=== PATIENT | male | born 1950 | race Hispanic/Latino ===

== ENCOUNTER 2018-01-18 16:57 | Inpatient (IN) | payer MEDICARE ==
--- NOTE | 2018-01-18 17:13 | ED PDOC ---
"Arrival/HPI <Jamaal Owen - Last Filed: 01/18/18 21:06> - General Historian: Patient <Jayant Quintero - Last Filed: 01/24/18 08:54> - General Time Seen by Provider: 01/18/18 16:59 - History of Present Illness Narrative History of Present Illness (Text): 01/18/18 17:09 67 y/o no signifcant pmh, nkda, c/o shortness of breath and dizziness x 3-4 days with no fall or trauma. Pt. stated that he has been feeling dizziness and shortness of breath x 3-4 days, admits difficulty sleeping when laying down flat and shortness of breath on exertion, no chest pain or palpitation, no night sweat, no headache or neck pain, no abdmominal or pelvic pain, no other medical or psychological complaints. (Jayant Quintero) Past Medical History - Provider Review Nursing Documentation Reviewed: Yes <Jayant Quintero - Last Filed: 01/24/18 08:54> Family/Social History - Physician Review Nursing Documentation Reviewed: Yes Family/Social History: Unknown Family HX <Jayant Quintero - Last Filed: 01/24/18 08:54> Allergies/Home Meds <Jamaal Owen - Last Filed: 01/18/18 21:06> <Jayant Quintero - Last Filed: 01/24/18 08:54> Allergies/Adverse Reactions: Allergies No Known Allergies Allergy (Verified 01/18/18 17:09) Home Medications: Home Meds Medication Instructions Recorded Confirmed No Known Home Med 01/18/18 01/18/18 Review of Systems - Review of Systems Constitutional: absent: Fatigue, Fevers Eyes: absent: Vision Changes ENT: absent: Hearing Changes Respiratory: SOB. absent: Cough, Sputum Cardiovascular: absent: Chest Pain Gastrointestinal: absent: Abdominal Pain, Nausea, Vomiting Skin: absent: Rash, Pruritis Neurological: Dizziness. absent: Headache, Focal Weakness, Gait Changes Hemo/Lymphatic: absent: Adenopathy, Easy Bleeding Psychiatric: absent: Anxiety, Depression <Jayant Quintero - Last Filed: 01/24/18 08:54> Physical Exam Vital Signs Reviewed: Yes Temperature: Afebrile Blood Pressure: Hypertensive Pulse: Tachycardic Respiratory Rate: Normal Appearance: Positive for: Well-Appearing, Non-Toxic, Comfortable Pain Distress: None Mental Status: Positive for: Alert and Oriented X 3 - Systems Exam Head: Present: Atraumatic, Normocephalic Pupils: Present: PERRL Extroacular Muscles: Present: EOMI Conjunctiva: Present: Normal Ears: Present: NORMAL TM, Normal Canal. No: Erythema Mouth: Present: Moist Mucous Membranes Pharnyx: No: ERYTHEMA, EXUDATE, TONSILS ENLARGED Nose (External): Present: Atraumatic. No: Abrasion, Contusion Nose (Internal): Present: Normal Inspection, No Active Bleeding. No: Rhinorrhea , Septal Hematoma, Epistaxis Neck: Present: Normal Range of Motion. No: Meningeal Signs, MIDLINE TENDERNESS , Paraspinal Tenderness, Lymphadenopathy, Trachea Midline Respiratory/Chest: Present: Decreased Breath Sounds (RLL), Rales (RLL), Rhonchi (RLL). No: Respiratory Distress, Accessory Muscle Use, Wheezes, Retracting, Tachypneic Cardiovascular: Present: Murmurs, Normal S1, S2, Irregular Rhythm, Tachycardic, Other (2+ pedal edema noted) Abdomen: No: Tenderness, Distention, Peritoneal Signs, Rebound, Guarding Back: Present: Normal Inspection Upper Extremity: Present: Normal Inspection, Normal ROM, NORMAL PULSES, Capillary Refill < 2s. No: Cyanosis, Edema, Deformity Lower Extremity: Present: Normal Inspection, NORMAL PULSES, Normal ROM, Capillary Refill < 2 s. No: Edema, Tenderness, Swelling, Deformity Neurological: Present: GCS=15, CN II-XII Intact, Speech Normal, Motor Func Grossly Intact, Gait Normal, Memory Normal Skin: Present: Warm, Dry, Normal Color. No: Rashes Psychiatric: Present: Alert, Oriented x 3, Normal Insight, Normal Concentration <Jayant Quintero Q - Last Filed: 01/24/18 08:54> Vital Signs Temp Pulse Resp BP Pulse Ox 01/18/18 23:01 147 H 47 H 194/128 H 93 L 01/18/18 23:00 147 H 48 H 91 L 01/18/18 22:57 148 H 56 H 01/18/18 22:39 143/103 H 01/18/18 22:20 149 H 26 H 143/100 H 96 01/18/18 21:28 148 H 30 H 144/99 H 95 01/18/18 20:46 150/98 H 01/18/18 19:40 148 H 24 143/100 H 96 01/18/18 17:40 147 H 147/102 H 01/18/18 17:13 168 H 194/112 H 01/18/18 17:12 22 97 01/18/18 16:57 97.5 F L 147 H 20 192/114 H 98 Medical Decision Making <Jamaal Owen - Last Filed: 01/18/18 21:06> - Critical Care Critical Care Minutes: 45 minutes Critical Care Time: Unstable - Lab Interpretations I have reviewed the lab results: Yes Interpretation: Abnormal lab values - RAD Interpretation Wringer Operator: Radiologist - EKG Interpretation Interpreted by ED Physician: Yes Type: 12 lead EKG Comparison: No previous EKG avail. <Jayant Quintero - Last Filed: 01/24/18 08:54> ED Course and Treatment: 01/18/18 17:11 -Labs/thyroid panel -EKG -CXR -IV cardizem 20mg/fluid -equipment monitor phototypesetting -Oxygen 4L placed on by me. -Observe and reassess 01/18/18 17:59 -Pt. received 20mg IV cardizem which the HR still around 140s, another 20mg IV cardizem given, agreed by Dr. Jefferson. -Pt. has no rectal bleeding and no abdominal pain, no stool discoloration, refused guaiac exam prior to anticoagulation. 01/18/18 18:25 -Blood hemolyzed, redraw, pending lab work and would anticoagulant. 01/18/18 19:03 -Bilateral LE doppler added due to the pedal edema. -PE studies added due to unresolved tachycardia. 01/18/18 19:28 -ICU team contacted, consult placed, and would evaluate the patient. -Paged out to Dr. Goncalves for consult 01/18/18 19:58 -I spoke to Dr. Yin, covering for Dr. Goncalves, reviewed the ekg himself, discussed about the case/labs/radiology result, recommend Continuous Cardizem drip 10mg/hr with digoxin IV 0.5mg as needed if tachycardia unresolved, and agreed with anticoagulant standard protocol for heparin, consult ordered. - Discussed with current ER attending DR. Owen and agreed on this treatment which recommend heparin 5000Units bolus due to the patient's weight 144.696kg and standard IV heparin drip. 01/18/18 20:55 -EKG: Atrial flutter @ 147 BPM, no ST elevation or depression, no T wave inversion. -Chest xray show cardiomegally with vascular congestion -labs show no acute findings except wbc 13.6 (likely stress induced, afebrile) -Thyroid panel within normal limit -BNP is 5690, IV lasix 60mg ordered -Troponin is positive 0.24, aspirin 325mg po ordered -UA ordered and pending results -UDS ordered and pending results -Pt. feels well, no shortness of breath on rest. -Tachycardia persist around 140, Digoxin 0.25mg IV ordered with the digoxin level order. -I spoke to the ICU team, would admit the patient to ICU and coming down to admit the patient. -All labs and radiology results discussed with the patient and , agreed to the admission. -As per pharmcist, the patient's IV heparin drip need to be adjusted to ideal body weight which I told them just follow the protocol for a.fibb/flutter -Case was also discussed with Dr. Baldwin, covering for Dr. Miles, agreed on the consults and treatment, will admit to his service. 01/18/18 21:46 -CTA Chest: Moderate-sized right pleural effusion. No pulmonary embolism is identified. Distal pulmonary arteries are not well-seen due to artifact. Infiltrate in the right lower lobe may be due to edema, pneumonia or compressive atelectasis. -Pt. has cough, elevated WBC, no fever or chills, clinically also concerning infected pneumonia, IV rocephin and azithromycin ordered with blood cultures. 01/18/18 21:58 -Pt. has persistent tachycardia @ 140 BPM, another digoxin 0.25mg ordered ( makes it total of digoxin 0.5mg IV), will go up to the ICU for further management. (Jayant Quintero) - Critical Care Narrative Critical Care (Text): 01/18/18 19:52 atrial flutter/NSTEMI/Congestive heart failure, IV cardizem and lasix, ICU and superintendent storage area consult, bedside monitoring. (Jayant Quintero) - Lab Interpretations Lab Results: 01/18/18 17:15 01/18/18 18:40 Lab Results 01/18/18 18:40: Hemoglobin A1c 6.3 01/18/18 18:40: Triglycerides 84, Cholesterol 172, LDL Cholesterol Direct 128, HDL Cholesterol 30 01/18/18 18:40: Digoxin < 0.4 L 01/18/18 18:40: Sodium 143, Potassium 4.3, Chloride 104, Carbon Dioxide 28, Anion Gap 15, BUN 11, Creatinine 0.9, Est GFR ( Amer) > 60, Est GFR (Non- Af Amer) > 60, Random Glucose 118 H, Calcium 8.9, Magnesium 2.0, Total Bilirubin 1.4 H, AST 53, ALT 82 H, Alkaline Phosphatase 159 H, Lactate Dehydrogenase 453, Total Creatine Kinase 105, Troponin I 0.24 H*, NT-Pro-B Natriuret Pep 5690 H, Total Protein 6.6, Albumin 3.8, Globulin 2.8, Albumin/ Globulin Ratio 1.4 01/18/18 17:15: Free T4 1.07, TSH 3rd Generation 3.36 01/18/18 17:15: PT 13.2 H, INR 1.15, APTT 36.4 01/18/18 17:15: WBC 13.6 H, RBC 5.81, Hgb 17.5, Hct 53.0 H, MCV 91.2, MCH 30.1, MCHC 33.0, RDW 14.3, Plt Count 334, MPV 11.1 H, Gran % 68.6 H, Lymph % (Auto) 22.1, [place] % (Auto) 8.5 H, Eos % (Auto) 0.6 L, Baso % (Auto) 0.2, Gran # 9.32 H , Lymph # (Auto) 3.0, [place] # (Auto) 1.2 H, Eos # (Auto) 0.1, Baso # (Auto) 0.03 - RAD Interpretation Radiology Orders: 01/18/18 17:13 CHEST PORTABLE [RAD] Stat 01/18/18 19:03 DUPLEX LOWER EXTRM VEIN BILAT [US] Stat 01/18/18 19:05 ANGIO CHEST PE PROTOCOL [CT] Stat Chest xray: vascular congestion and cardiomegally -------- Bilateral LE Venuous doppler: as per preliminary report, no acute DVT CTA Chest: FINDINGS: Artifacts: Motion artifact. Pulmonary arteries: No pulmonary embolism is identified. Distal pulmonary arteries are not wellseen due to artifact. Aorta: No acute findings. No thoracic aortic aneurysm. Lungs: Infiltrate in the right lower lobe may be due to edema, pneumonia or compressive atelectasis. No mass. Pleural space: Moderate-sized right pleural effusion. No pneumothorax. Heart: Unremarkable. No cardiomegaly. No significant pericardial effusion. No evidence of RV dysfunction. Bones/joints: No acute fracture. No dislocation. Soft tissues: Unremarkable. Lymph nodes: Unremarkable. No enlarged lymph nodes. IMPRESSION: 1. Moderate-sized right pleural effusion. 2. No pulmonary embolism is identified. Distal pulmonary arteries are not well- seen due to artifact. 3. Infiltrate in the right lower lobe may be due to edema, pneumonia or compressive atelectasis. ROWENA TORRE | Preliminary Radiology Report MINER OPERATOR (QA) DISCREPANCY? If there is a discrepancy between the preliminary and final interpretation, please notify [facility] via [email or web address]. If you do not have access to our QA portal, call our QA team at [phone] CONFIDENTIALITY STATEMENT This report is intended only for the use of the referring physician, and only in accordance with law, If you received this in error, call [phone] Page 2 of 2 Thank you for allowing us to participate in the care of your patient. Dictated and Authenticated by: Vicente Valles MD 01/18/2018 9:42 PM Eastern Time ([place] & [place]) (Jayant Quintero) - EKG Interpretation EKG Interpretation (Text): 01/18/18 18:00 -EKG: Atrial flutter @ 147 BPM, no ST elevation or depression, no T wave inversion. (Jayant Quintero) - Medication Orders Current Medication Orders: Amiodarone HCl (Cordarone) 400 mg PO BID [facility] Last Admin: 01/23/18 17:25 Dose: 400 mg MAR Pulse and Blood Pressure Document 01/23/18 17:25 KMS (Rec: 01/23/18 17:26 [place] [id number]) Pulse Pulse Rate (60-90) 113 Blood Pressure Blood Pressure (100/60-150/90) 112/67 Aspirin (Ecotrin) 81 mg PO DAILY [facility] Last Admin: 01/23/18 09:10 Dose: 81 mg Carvedilol (Coreg) 25 mg PO BID [facility] Last Admin: 01/23/18 17:26 Dose: 25 mg MAR Pulse and Blood Pressure Document 01/23/18 17:26 KMS (Rec: 01/23/18 17:26 KMS [place] [id number]) Pulse Pulse Rate (60-90) 113 Blood Pressure Blood Pressure (100/60-150/90) 112/67 Digoxin (Digoxin) 0.125 mg PO 1400 [facility] Last Admin: 01/23/18 13:07 Dose: 0.125 mg MAR Apical Pulse Rate Document 01/23/18 13:07 RAMOM (Rec: 01/23/18 13:07 RAMOM [id number] Apical Pulse Rate Apical Pulse Rate (60-90 beats/min) 115 Enoxaparin Sodium (Lovenox) 140 mg SC Q12 [facility] Last Admin: 01/23/18 22:06 Dose: 140 mg Subcutaneous Administrations Document 01/23/18 22:06 FDE (Rec: 01/23/18 22:06 FDE [id number]) Charges for Administration # of Subcutaneous Administrations 1 Famotidine (Pepcid) 40 mg PO HS [facility] Last Admin: 01/23/18 22:06 Dose: 40 mg Furosemide (Lasix) 40 mg IV DAILY [facility] Levalbuterol HCl (Xopenex) 0.63 mg IH [id number] PRN PRN Reason: Shortness of Breath Lisinopril (Zestril) 5 mg PO DAILY [facility] Last Admin: 01/23/18 09:10 Dose: 5 mg MAR Pulse and Blood Pressure Document 01/23/18 09:10 RAMOM (Rec: 01/23/18 09:10 RAMOM [id number]) Pulse Pulse Rate (60-90) 118 Blood Pressure Blood Pressure (100/60-150/90) 106/79 Polyethylene Glycol (Miralax) 17 gm PO BID [facility] Last Admin: 01/23/18 17:26 Dose: Not Given Non-Admin Reason: Patient Refused Potassium Chloride (K-Dur 20 Meq Er Tab) 20 meq PO BRK [facility] Last Admin: 01/24/18 08:44 Dose: 20 meq Discontinued Medications Aspirin (Aspirin) 325 mg PO STAT STA Stop: 01/18/18 19:29 Last Admin: 01/18/18 20:46 Dose: 325 mg Carvedilol (Coreg) 12.5 mg PO BID [facility] Last Admin: 01/21/18 08:00 Dose: 12.5 mg MAR Pulse and Blood Pressure Document 01/21/18 08:00 RAMOM (Rec: 01/21/18 09:04 RAMOM [id number]) Pulse Pulse Rate (60-90) 133 Blood Pressure Blood Pressure (100/60-150/90) 138/79 Carvedilol (Coreg) 12.5 mg PO TID [facility] Last Admin: 01/21/18 17:47 Dose: 12.5 mg MAR Pulse and Blood Pressure Document 01/21/18 17:47 RAMOM (Rec: 01/21/18 17:47 RAMOM [id number]) Pulse Pulse Rate (60-90) 122 Blood Pressure Blood Pressure (100/60-150/90) 145/83 Digoxin (Lanoxin) 0.25 mg IVP STAT STA Stop: 01/18/18 20:48 Last Admin: 01/18/18 21:19 Dose: 0.25 mg MAR Apical Pulse Rate Document 01/18/18 21:19 SS (Rec: 01/18/18 21:20 SS [id number]) Apical Pulse Rate Apical Pulse Rate (60-90 beats/min) 149 IVP Administration Document 01/18/18 21:19 SS (Rec: 01/18/18 21:20 SS [id number]) Charges for Administration # of IVP Administrations 1 Digoxin (Lanoxin) 0.25 mg IVP STAT STA Stop: 01/18/18 21:59 Last Admin: 01/18/18 22:39 Dose: 0.25 mg MAR Apical Pulse Rate Document 01/18/18 22:39 SS (Rec: 01/18/18 22:39 SS [id number]) Apical Pulse Rate Apical Pulse Rate (60-90 beats/min) 147 IVP Administration Document 01/18/18 22:39 SS (Rec: 01/18/18 22:39 SS [id number]) Charges for Administration # of IVP Administrations 1 Digoxin (Lanoxin) 0.25 mg IVP ONCE ONE Stop: 01/19/18 03:12 Last Admin: 01/19/18 03:20 Dose: 0.25 mg MAR Apical Pulse Rate Document 01/19/18 03:20 ID (Rec: 01/19/18 03:21 ID [id number]) Apical Pulse Rate Apical Pulse Rate (60-90 beats/min) 150 IVP Administration Document 01/19/18 03:20 ID (Rec: 01/19/18 03:21 ID [id number]) Charges for Administration # of IVP Administrations 1 Digoxin (Lanoxin) 0.25 mg IV ONCE ONE Stop: 01/20/18 08:16 Last Admin: 01/20/18 08:32 Dose: 0.25 mg eMAR Start Stop Document 01/20/18 08:32 MDU (Rec: 01/20/18 08:33 MDU [id number]) Intravenous Solution Start Date 01/20/18 Start Time 08:33 MAR Apical Pulse Rate Document 01/20/18 08:32 MDU (Rec: 01/20/18 08:33 MDU [id number]) Apical Pulse Rate Apical Pulse Rate (60-90 beats/min) 142 Diltiazem HCl (Cardizem) 20 mg IVP STAT STA Stop: 01/18/18 17:13 Last Admin: 01/18/18 17:13 Dose: 20 mg IVP Administration Document 01/18/18 17:13 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 (Rec: 01/18/18 17:40 [id number]) Charges for Administration # of IVP Administrations 1 MAR Pulse and Blood Pressure Document 01/18/18 17:13 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 (Rec: 01/18/18 17:40 [id number]) Pulse Pulse Rate (60-90) 168 Blood Pressure Blood Pressure (100/60-150/90) 194/112 Diltiazem HCl (Cardizem) 20 mg IVP STAT STA Stop: 01/18/18 17:31 Last Admin: 01/18/18 17:40 Dose: 20 mg IVP Administration Document 01/18/18 17:40 [facility] (Rec: 01/18/18 17:40 [id number]) Charges for Administration # of IVP Administrations 2 MAR Pulse and Blood Pressure Document 01/18/18 17:40 [facility] (Rec: 01/18/18 17:40 [id number]) Pulse Pulse Rate (60-90) 147 Blood Pressure Blood Pressure (100/60-150/90) 147/102 Diltiazem HCl (Cardizem) 10 mg IVP ONCE STA Stop: 01/19/18 03:32 Last Admin: 01/19/18 04:10 Dose: 10 mg IVP Administration Document 01/19/18 04:10 DAMARI (Rec: 01/19/18 04:56 [facility]ARI [id number] Charges for Administration # of IVP Administrations 1 MAR Pulse and Blood Pressure Document 01/19/18 04:10 DAMARI (Rec: 01/19/18 04:56 DAMARI [id number]) Pulse Pulse Rate (60-90) 149 Blood Pressure Blood Pressure (100/60-150/90) 102/76 Enoxaparin Sodium (Lovenox) 140 mg SC Q12 [facility] Last Admin: 01/23/18 09:11 Dose: 140 mg Subcutaneous Administrations Document 01/23/18 09:11 RAMOM (Rec: 01/23/18 09:11 RAMOM [id number] Injection Site MAR Injection Site Left Abdomen Charges for Administration # of Subcutaneous Administrations 1 Furosemide (Lasix) 60 mg IVP STAT STA Stop: 01/18/18 19:20 Last Admin: 01/18/18 20:46 Dose: 60 mg MAR Blood Pressure Document 01/18/18 20:46 SS (Rec: 01/18/18 20:46 SS [id number]) Blood Pressure Blood Pressure (100/60-150/90) 150/98 IVP Administration Document 01/18/18 20:46 SS (Rec: 01/18/18 20:46 SS [id number]) Charges for Administration # of IVP Administrations 1 Furosemide (Lasix) 40 mg IVP Q12 [facility] Last Admin: 01/19/18 21:12 Dose: 40 mg MAR Blood Pressure Document 01/19/18 21:12 KGD (Rec: 01/19/18 21:14 KGD [id number]) Blood Pressure Blood Pressure (100/60-150/90) 109/72 IVP Administration Document 01/19/18 21:12 KGD (Rec: 01/19/18 21:14 KGD [id number]) Charges for Administration # of IVP Administrations 1 Furosemide (Lasix) 60 mg IVP STAT STA Stop: 01/18/18 23:28 Last Admin: 01/18/18 23:33 Dose: 60 mg MAR Blood Pressure Document 01/18/18 23:33 ID (Rec: 01/18/18 23:33 ID [id number]) Blood Pressure Blood Pressure (100/60-150/90) 216/127 IVP Administration Document 01/18/18 23:33 ID (Rec: 01/18/18 23:33 ID [id number]) Charges for Administration # of IVP Administrations 1 Furosemide (Lasix) 40 mg IV BID [facility]ACK[facility] Last Admin: 01/23/18 17:25 Dose: 40 mg eMAR Start Stop Document 01/23/18 17:25 KMS (Rec: 01/23/18 17:25 KMS [id number]) Intravenous Solution Start Date 01/23/18 Start Time 17:25 End Date 01/23/18 End time 17:25 Total Infusion Time 0 MAR Blood Pressure Document 01/23/18 17:25 KMS (Rec: 01/23/18 17:25 KMS [id number]) Blood Pressure Blood Pressure (100/60-150/90) 112/67 Heparin Sodium (Porcine) (Heparin) 5,000 units IV ONCE ONE PRN Reason: Protocol Stop: 01/18/18 20:22 Last Admin: 01/18/18 20:47 Dose: 5,000 units eMAR Start Stop Document 01/18/18 20:47 SS (Rec: 01/18/18 20:47 SS [id number]) Intravenous Solution Start Date 01/18/18 Start Time 20:47 Heparin Sodium (Porcine) (Heparin) 4,400 units IV ONCE ONE Stop: 01/21/18 08:46 Last Admin: 01/21/18 08:53 Dose: 4,400 units eMAR Start Stop Document 01/21/18 08:53 RAMOM (Rec: 01/21/18 08:53 RAMOM [id number]) Intravenous Solution Start Date 01/21/18 Start Time 08:50 End Date 01/21/18 End time 08:55 Total Infusion Time 5 MAR aPTT Document 01/21/18 08:53 RAMOM (Rec: 01/21/18 08:53 RAMOM [id number]) aPTT aPTT (secs) 36.9 Heparin Sodium (Porcine) (Heparin) 5,500 units IVP STAT STA PRN Reason: Protocol Stop: 01/22/18 07:28 Last Admin: 01/22/18 07:34 Dose: 5,500 units MAR aPTT Document 01/22/18 07:34 MG (Rec: 01/22/18 07:34 MG [id number]) aPTT aPTT (secs) 42.3 IVP Administration Document 01/22/18 07:34 MG (Rec: 01/22/18 07:34 MG [id number]) Charges for Administration # of IVP Administrations 1 Sodium Chloride (Sodium Chloride 0.9%) 1,000 mls @ 100 mls/hr IV .Q10H JACKIE Last Admin: 01/18/18 17:41 Dose: 100 mls/hr eMAR Start Stop Document 01/18/18 17:41 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 (Rec: 01/18/18 17:41 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 [id number] Intravenous Solution Start Date 01/18/18 Start Time 17:41 diltiaZEM IVPB 100mg in NS (Cardizem 100mg In Ns) 100 mls @ 10 mls/hr IV .Q10H PRN; Protocol; 10 MG/HR PRN Reason: TITRATE PER MD ORDER Last Admin: 01/19/18 10:07 Dose: 15 mg/hr, 15 mls/hr eMAR Start Stop Document 01/19/18 10:07 OYELO (Rec: 01/19/18 10:08 OYELO [id number]) Intravenous Solution Start Date 01/19/18 Start Time 10:07 MAR Pulse Rate Document 01/19/18 10:07 OYELO (Rec: 01/19/18 10:08 OYELO [id number]) Pulse Rate Pulse Rate (60-90) 140 Titration Intervention Document 01/19/18 10:07 OYELO (Rec: 01/19/18 10:08 OYELO [id number]) Titration Intake Cumulative Intake (Rx) 200 Waste Amount 0 Container Volume 100 Titration Dosing Titration Dose 15 IV Rate 15 Intake/Decrease Started/Running Cumulative Dose 200 Heparin Sodium/Sodium Chloride (Heparin 86688 Units/250ml 1/2 Normal Saline) 25 ,000 units in 250 mls @ 18.087 mls/hr IV .[id number] PRN; Protocol; 12.5 UNITS/KG/ HR PRN Reason: ADJUST RATE PER PROTOCOL Last Admin: 01/21/18 20:34 Dose: 7 units/kg/hr, 10.129 mls/hr eMAR Start Stop Document 01/21/18 20:34 MG (Rec: 01/21/18 20:34 MG [id number]) Intravenous Solution Start Date 01/21/18 Start Time 20:34 Titration Intervention Document 01/21/18 20:34 MG (Rec: 01/21/18 20:34 MG [id number]) Titration Intake Cumulative Intake (Rx) 1,000 Waste Amount 0 Container Volume 250 Titration Dosing Titration Dose 7 IV Rate 10.129 Intake/Decrease Started/Running Cumulative Dose 232018 Ceftriaxone Sodium (Rocephin 1 Gram Ivpb) 1 gm in 100 mls @ 200 mls/hr IVPB STAT STA PRN Reason: Protocol Stop: 01/18/18 22:15 Last Admin: 01/18/18 22:22 Dose: 200 mls/hr eMAR Start Stop Document 01/18/18 22:22 SS (Rec: 01/18/18 22:22 SS [id number]) Intravenous Solution Start Date 01/18/18 Start Time 22:22 End Date 01/18/18 End time 22:52 Total Infusion Time 30 Azithromycin (Zithromax 500mg In Ns) 500 mg in 250 mls @ 167 mls/hr IVPB STAT STA PRN Reason: Protocol Stop: 01/18/18 23:15 Azithromycin (Zithromax 500mg In Ns) 500 mg in 250 mls @ 167 mls/hr IVPB DAILY JACKIE PRN Reason: Protocol Last Admin: 01/22/18 09:16 Dose: 167 mls/hr eMAR Start Stop Document 01/22/18 09:16 RAMOM (Rec: 01/22/18 09:16 RAMOM [id number]) Intravenous Solution Start Date 01/22/18 Start Time 09:20 End Date 01/22/18 End time 10:50 Total Infusion Time 90 Amiodarone HCl/Dextrose (Nexterone 360 Mg In D5w 200 Ml (Premix)) 360 mg in 200 mls @ 16.667 mls/hr IV .Q12H JACKIE; 0.5 MG/MIN PRN Reason: Protocol Last Admin: 01/21/18 17:48 Dose: 16.667 mls/hr eMAR Start Stop Document 01/21/18 17:48 RAMOM (Rec: 01/21/18 17:48 RAMOM [id number]) Intravenous Solution Start Date 01/21/18 Start Time 19:00 End Date 01/22/18 End time 07:00 Total Infusion Time 720 Amiodarone HCl/Dextrose (Nexterone 360 Mg In D5w 200 Ml (Premix)) 360 mg in 200 mls @ 33.333 mls/hr IV .Q6H JACKIE; 1 MG/MIN PRN Reason: Protocol Last Admin: 01/19/18 11:27 Dose: 33.333 mls/hr eMAR Start Stop Document 01/19/18 11:27 OYELO (Rec: 01/19/18 11:28 OYELO [id number]) Intravenous Solution Start Date 01/19/18 Start Time 11:28 End Date 01/19/18 End time 17:28 Total Infusion Time 360 Amiodarone HCl/Dextrose (Nexterone 150 Mg In Dextrose 100 Ml (Premix)) 150 mg in 100 mls @ 600 mls/hr IVPB ONCE ONE PRN Reason: Protocol Stop: 01/19/18 11:19 Last Admin: 01/19/18 11:26 Dose: 600 mls/hr eMAR Start Stop Document 01/19/18 11:26 OYELO (Rec: 01/19/18 11:26 OYELO [id number]) Intravenous Solution Start Date 01/19/18 Start Time 11:26 End Date 01/19/18 End time 11:36 Total Infusion Time 10 diltiaZEM IVPB 100mg in NS (Cardizem 100mg In Ns) 100 mls @ 5 mls/hr IV .Q20H PRN; Protocol; 5 MG/HR PRN Reason: TITRATE PER MD ORDER Last Admin: 01/19/18 18:45 Dose: 5 mg/hr, 5 mls/hr eMAR Start Stop Document 01/19/18 18:45 OYELO (Rec: 01/19/18 18:45 OYELO [id number]) Intravenous Solution Start Date 01/19/18 Start Time 18:45 MAR Pulse Rate Document 01/19/18 18:45 OYELO (Rec: 01/19/18 18:45 OYELO [id number]) Pulse Rate Pulse Rate (60-90) 117 Titration Intervention Document 01/19/18 18:45 OYELO (Rec: 01/19/18 18:45 OYELO [id number]) Titration Intake Waste Amount 0 Container Volume 100 Titration Dosing Titration Dose 5 IV Rate 5 Intake/Decrease Started Metoprolol Tartrate (Lopressor) 5 mg IVP STAT PRN PRN Reason: Heart Rate > 100 Last Admin: 01/19/18 06:44 Dose: 5 mg IVP Administration Document 01/19/18 06:44 ID (Rec: 01/19/18 06:44 ID [id number]) Charges for Administration # of IVP Administrations 1 MAR Pulse and Blood Pressure Document 01/19/18 06:44 ID (Rec: 01/19/18 06:44 ID [id number]) Pulse Pulse Rate (60-90) 115 Blood Pressure Blood Pressure (100/60-150/90) 127/78 Metoprolol Tartrate (Lopressor) 5 mg IVP Q15M PRN PRN Reason: Heart Rate > 100 Last Admin: 01/19/18 08:34 Dose: 5 mg IVP Administration Document 01/19/18 08:34 OYELO (Rec: 01/19/18 08:34 OYELO [id number]) Charges for Administration # of IVP Administrations 1 MAR Pulse and Blood Pressure Document 01/19/18 08:34 OYELO (Rec: 01/19/18 08:34 OYELO [id number]) Pulse Pulse Rate (60-90) 140 Blood Pressure Blood Pressure (100/60-150/90) 101/63 Metoprolol Tartrate (Lopressor) 5 mg IVP ONCE ONE Stop: 01/19/18 15:52 Last Admin: 01/19/18 16:07 Dose: 5 mg IVP Administration Document 01/19/18 16:07 OYELO (Rec: 01/19/18 16:08 OYELO [id number]) Charges for Administration # of IVP Administrations 1 MAR Pulse and Blood Pressure Document 01/19/18 16:07 OYELO (Rec: 01/19/18 16:08 OYELO [id number]) Pulse Pulse Rate (60-90) 132 Blood Pressure Blood Pressure (100/60-150/90) 109/58 Pantoprazole Sodium (Protonix Inj) 40 mg IVP DAILY JACKIE Last Admin: 01/19/18 09:08 Dose: 40 mg IVP Administration Document 01/19/18 09:08 OYELO (Rec: 01/19/18 09:08 OYELO [id number]) Charges for Administration # of IVP Administrations 1 - PA / MOTION PICTURE OPERATOR / Resident Statement SATYA has reviewed & agrees with the documentation as recorded. SATYA has examined the patient and agrees with the treatment plan. <Jamaal Owen - Last Filed: 01/18/18 21:06> - PA / MOTION PICTURE OPERATOR / Resident Statement SATYA has reviewed & agrees with the documentation as recorded. SATYA has examined the patient and agrees with the treatment plan. <Jayant Quintero - Last Filed: 01/24/18 08:54> Disposition/Present on Arrival <Jamaal Owen - Last Filed: 01/18/18 21:06> - Present on Arrival Any Indicators Present on Arrival: No History of DVT/PE: No History of Uncontrolled Diabetes: No Urinary Catheter: No History of Decub. Ulcer: No - Disposition Have Diagnosis and Disposition been Completed?: Yes Disposition Time: 20:57 Patient Plan: Admission, ICU <Jayant Quintero - Last Filed: 01/24/18 08:54> - Disposition Diagnosis: Heart failure, Atrial flutter, NSTEMI (non-ST elevated myocardial infarction), Abnormal CT of the chest, Pleural effusion Disposition: HOSPITALIZED Patient Problems: Current Active Problems Problem Status Onset Abnormal CT of the chest Acute Atrial flutter Acute Heart failure Acute NSTEMI (non-ST elevated myocardial infarction) Acute Pleural effusion Acute Condition: GUARDED"
[2018-01-18 17:20] VITALS: BMI 44.9
[2018-01-18] MEDS ORDERED: diltiaZEM IVPB 100mg in NS 100 ML IV PRN (17:23)
[2018-01-18] MEDS ORDERED: Sodium Chloride 0.9% 1,000 ML IV SCH (17:30)
[2018-01-18 17:51] LABS: BASO # 0.03 K/mm3 (0.0-2.0); BASO % 0.2 % (0.0-3.0); EOS # 0.1 (0.0-0.7); EOS % 0.6 % (1.5-5.0); GRAN # 9.32 (1.4-6.5); GRAN % 68.6 % (50.0-68.0); HEMOGLOBIN 17.5 g/dL (14.0-18.0); LYMPH % 22.1 % (22.0-35.0); MEAN CELL VOLUME 91.2 fl (80.0-105.0); MEAN CORPUSCULAR HEMOGLOBIN 30.1 pg (25.0-35.0); MEAN PLATELET VOLUME 11.1 fl (7.0-11.0); MONO # 1.2 (0.1-0.6); MONO % 8.5 % (1.0-6.0); RBC 5.81 10^6/uL (3.5-6.1); RED CELL DISTRIBUTION WIDTH 14.3 % (11.5-14.5); WHITE BLOOD COUNT 13.6 10^3/ul (4.5-11.0)
[2018-01-18 18:02] LABS: INR 1.15; PARTIAL THROMBOPLASTIN TIME 36.4 Seconds (25.1-36.5); PROTHROMBIN TIME 13.2 SECONDS (9.4-12.5)
[2018-01-18 18:19] LABS: FREE T4 1.07 ng/dL (0.78-2.19)
[2018-01-18 19:00] LABS: ALB/GLOB RATIO 1.4 (1.1-1.8); ALBUMIN 3.8 g/dL (3.0-4.8); ALT/SGPT 82 U/L (7-56); AST/SGOT 53 U/L (17-59); BLOOD UREA NITROGEN 11 mg/dL (7-21); CALCIUM 8.9 mg/dL (8.4-10.5); GFR NON-AFRICAN AMERICAN > 60
[2018-01-18 19:16] LABS: B-TYPE NATRIURETIC PEPTIDE 5690 pg/mL (0-450); TROPONIN I 0.24 ng/mL
[2018-01-18] MEDS ORDERED: Digoxin 500 mcg/2ml (0.5 mg/2ml) Inj IVP STA ×2 (20:47→21:58)
[2018-01-18] MEDS: Heparin25000 units/250ml 1/2NS 25,000 UNITS/250 ML BAG IV PRN (21:33)
--- NOTE | 2018-01-18 21:34 | CP.PCM.CON ---
<Deepika Goins - Last Filed: 01/19/18 01:22> History of Present Illness - History of Present Illness History of Present Illness: Deepika Goins, PGY-1 Consult Note for ICU This is a 67 year old male with no PMH who has not been to a doctor in the several years presents to the hospital for one week history of shortness of breath. SOB is intermittent, worse in the morning and while laying flat, and improved with sitting up. Patient admits to needing two pillows when sleeping and sometimes sleeps sitting up. Patient went to his PMD today, Dr. Miles, who recommended patient come to the ED for abnormal EKG with irregular rhythm. At this time, patient admits to SOB and B/L leg swelling that began earlier in the week. He denies CP, abdominal pain, headaches, fevers, chills, nausea, vomiting , urinary complaints, back pain, recent sickness, recent travel and sick contacts at home. 12 point ROS noted here, otherwise unremarkable. In the ED, patient's EKG noted atrial flutter at 147bpm with no ST changes. CXR showed cardiomegaly and vascular congestion. Duplex US negative for B/L DVT. Thyroid panel WNL. Troponin elevated at 0.24, BNP elevated at 5690. [facility] contacted, Dr. Fonseca recommended cardizem and heparin. Patient also given lasix 60mg IVP and digoxin 0.25mg. CTA showed morderate sized right pleural effusion. No PE. infiltrate in right lower lobe may be due to edema, pneumonia or compressive atelectasis. Patient will be monitored in the ICU. PMD: Dr. Miles PMH: denies SH: quit smoking 30 years ago. Denies drinking and drug use. 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 Sx: denies surgeries FH: father from [place] at 64, mother has alzheimer's All: NKDA Hospitalizations: denies Meds: denies Past Patient History - Past Social History Smoking Status: Never Smoked - PSYCHIATRIC Hx Substance Use: No - SURGICAL HISTORY Hx Surgeries: No Meds Allergies/Adverse Reactions: Allergies Allergy/AdvReac Type Severity Reaction Status Date / Time No Known Allergies Allergy Verified 01/18/18 17:09 - Medications Medications: Current Medications Aspirin (Ecotrin) 81 mg PO DAILY JACKIE Furosemide (Lasix) 40 mg IVP Q12 JACKIE diltiaZEM IVPB 100mg in NS (Cardizem 100mg In Ns) 100 mls @ 10 mls/hr IV .Q10H PRN; Protocol; 10 MG/HR PRN Reason: TITRATE PER MD ORDER Heparin Sodium/Sodium Chloride (Heparin 16146 Units/250ml 1/2 Normal Saline) 25 ,000 units in 250 mls @ 18.087 mls/hr IV .[id number] PRN; Protocol; 12.5 UNITS/KG/ HR PRN Reason: ADJUST RATE PER PROTOCOL Pantoprazole Sodium (Protonix Inj) 40 mg IVP DAILY [facility] Physical Exam - Constitutional Appears: No Acute Distress - Head Exam Head Exam: ATRAUMATIC, NORMAL INSPECTION - Eye Exam Eye Exam: EOMI Pupil Exam: PERRL - ENT Exam ENT Exam: Mucous Membranes Moist - Respiratory Exam Respiratory Exam: absent: Respiratory Distress Additional comments: poor inspiratory effort noted, some wheezing appreciated B/L - Cardiovascular Exam Cardiovascular Exam: Tachycardia, Irregular Rhythm, +S1, +S2 - GI/Abdominal Exam GI & Abdominal Exam: Normal Bowel Sounds. absent: Firm, Guarding - Extremities Exam Extremities exam: Negative for: calf tenderness Additional comments: B/L leg swelling +2 noted - Back Exam Back exam: NORMAL INSPECTION - Neurological Exam Neurological exam: Alert, Oriented x3 - Skin Skin Exam: Normal Color, Warm Results - Vital Signs Recent Vital Signs: Last Vital Signs Temp 97.5 F L 01/18/18 16:57 Pulse 147 H 01/18/18 17:40 Resp 22 01/18/18 17:12 BP 150/98 H 01/18/18 20:46 Pulse Ox 97 01/18/18 17:12 - Labs Result Diagrams: 01/18/18 17:15 01/18/18 18:40 Assessment & Plan - Assessment and Plan (Free Text) Assessment: This is a 67 year old male with no PMH presenting to the hospital for one week history of shortness of breath likely 2/2 atrial flutter from undiagnosed CHF exacerbation. undiagnosed CHF vs atrial flutter. Elevated troponins concerning for NSTEMI vs type II [place]. Will be monitored in the ICU. Plan Neuro: -maintain normothermia -AAO x3, moving extremities spontaneously past midline Cardio: -maintain MAP>65 -will monitor vitals including HR and BP, currently tachy at 149 -EKG on admission showed atrial flutter at 147bpm with no ST changes -given heparin bolus in ED, started on drip -concern for NSTEMI with initial troponin of 0.24. -repeat troponins pending q6 x2 -EKG in AM -lipid panel, A1c pending -ASA daily -BNP of 5690 -Echo pending -given lasix 60mg IVP in ED, started on lasix 40mg IVP q12 -given digoxin 0.25mg -cardizem bolus given, started on cardizem drip -strict I/Os, daily weights, fluid restriction -cardiology on consult, Dr. Yin Lungs: -SaO2 >90% -supplementary O2 PRN -CTA showed morderate sized right pleural effusion. No PE. infiltrate in right lower lobe may be due to edema, pneumonia or compressive atelectasis. -CXR shows cardiomegaly and vascular congestion (read by me) Renal: -maintain euvolemia -avoid nephrotoxic agents, hypochloremia -replace electrolytes as needed -BUN/Cr is 11/0.9 WNL Heme: -DVT ppx with heparin Endo: -maintain euglycemia ID: -WBC is 13.6 today, afebrile -procalc pending -blood culture pending -rocephin, azithromycin given in ED -GI: -NPO diet in case of morning procedure -GI prophylaxis with protonix PPX with protonix and heparin gtt Patient seen and case discussed with attending, Dr. Lukas Goins, PGY-1 <Lukas Metz N - Last Filed: 01/21/18 02:51> Meds - Medications Medications: Current Medications Aspirin (Ecotrin) 81 mg PO DAILY [facility] Last Admin: 01/20/18 09:00 Dose: 81 mg Carvedilol (Coreg) 12.5 mg PO BID [facility] Last Admin: 01/20/18 19:33 Dose: 12.5 mg Digoxin (Digoxin) 0.125 mg PO 1400 [facility] Famotidine (Pepcid) 40 mg PO HS [facility] Last Admin: 01/20/18 22:12 Dose: 40 mg Furosemide (Lasix) 40 mg IV BID [facility] Last Admin: 01/20/18 19:00 Dose: 40 mg Heparin Sodium/Sodium Chloride (Heparin 50611 Units/250ml 1/2 Normal Saline) 25 ,000 units in 250 mls @ 18.087 mls/hr IV .[id number] PRN; Protocol; 12.5 UNITS/KG/ HR PRN Reason: ADJUST RATE PER PROTOCOL Last Admin: 01/20/18 19:35 Dose: 7 units/kg/hr, 10.129 mls/hr Azithromycin (Zithromax 500mg In Ns) 500 mg in 250 mls @ 167 mls/hr IVPB DAILY JACKIE PRN Reason: Protocol Last Admin: 01/20/18 09:01 Dose: 167 mls/hr Amiodarone HCl/Dextrose (Nexterone 360 Mg In D5w 200 Ml (Premix)) 360 mg in 200 mls @ 16.667 mls/hr IV .Q12H JACKIE; 0.5 MG/MIN PRN Reason: Protocol Last Admin: 01/20/18 17:00 Dose: 16.667 mls/hr Levalbuterol HCl (Xopenex) 0.63 mg IH [id number] PRN PRN Reason: Shortness of Breath Results - Vital Signs Recent Vital Signs: Last Vital Signs Temp 98 F 01/21/18 00:00 Pulse 130 H 01/21/18 02:30 Resp 24 01/21/18 02:30 BP 128/83 01/21/18 02:31 Pulse Ox 92 L 01/21/18 02:20 - Labs Result Diagrams: 01/20/18 07:00 01/20/18 07:00 Labs: Laboratory Results - last 24 hr 01/20/18 01/20/18 01/20/18 07:00 07:00 07:00 WBC 10.8 RBC 5.47 Hgb 16.2 Hct 50.4 MCV 92.1 MCH 29.6 MCHC 32.1 RDW 14.4 Plt Count 239 MPV 10.3 Gran % 71.9 H Lymph % (Auto) 17.7 L [place] % (Auto) 9.1 H Eos % (Auto) 1.1 L Baso % (Auto) 0.2 Gran # 7.77 H Lymph # (Auto) 1.9 [place] # (Auto) 1.0 H Eos # (Auto) 0.1 Baso # (Auto) 0.02 APTT 113.8 H* Sodium 139 Potassium 3.9 Chloride 101 Carbon Dioxide 33 Anion Gap 9 L BUN 16 Creatinine 1.0 Est GFR ( Amer) > 60 Est GFR (Non-Af Amer) > 60 Random Glucose 118 H Calcium 8.6 Phosphorus 3.6 Magnesium 1.9 Total Bilirubin 0.8 AST 35 ALT 58 H Alkaline Phosphatase 134 H D Total Protein 6.4 Albumin 3.6 Globulin 2.8 Albumin/Globulin Ratio 1.3 01/20/18 01/20/18 11:50 19:45 WBC RBC Hgb Hct MCV MCH MCHC RDW Plt Count MPV Gran % Lymph % (Auto) [place] % (Auto) Eos % (Auto) Baso % (Auto) Gran # Lymph # (Auto) [place] # (Auto) Eos # (Auto) Baso # (Auto) APTT 85.3 H 59.3 H Sodium Potassium Chloride Carbon Dioxide Anion Gap BUN Creatinine Est GFR ( Amer) Est GFR (Non-Af Amer) Random Glucose Calcium Phosphorus Magnesium Total Bilirubin AST ALT Alkaline Phosphatase Total Protein Albumin Globulin Albumin/Globulin Ratio
[2018-01-18] MEDS: diltiaZEM IVPB 100mg in NS 100 ML IV PRN (21:41)
[2018-01-18] MEDS ORDERED: Azithromycin 500MG/NS 250ml 500 MG/250 ML BAG IVPB STA (21:46)
[2018-01-18] MEDS ORDERED: cefTRIAXone 1 gm 1 GM/100 ML BAG IVPB STA (21:46)
[2018-01-18 22:10] LABS: HDL CHOLESTEROL 30 mg/dL (29-60)
[2018-01-18 22:20] LABS: LDL CHOLESTEROL 128 mg/dL (0-129)
[2018-01-18 22:34] LABS: URINE BILIRUBIN NEGATIVE (NEGATIVE); URINE BLOOD NEGATIVE (NEGATIVE); URINE GLUCOSE (UA) NEGATIVE (NEGATIVE); URINE LEUKOCYTE ESTERASE NEGATIVE Leu/uL (NEGATIVE); URINE PROTEIN NEGATIVE mg/dL (<30 mg/dL); URINE UROBILINOGEN 0.2 E.U./dL (<1 E.U./dL)
[2018-01-18 22:35] LABS: URINE APPEARANCE CLEAR (CLEAR); URINE COLOR COLORLESS (YELLOW)
[2018-01-18 23:00] LABS: BARBITURATES, UR NEGATIVE (NEGATIVE); BENZODIAZEPINES, UR NEGATIVE (NEGATIVE); OPIATES, UR NEGATIVE (NEGATIVE); PHENCYCLIDINE, UR NEGATIVE (NEGATIVE)
[2018-01-19] MEDS ORDERED: Levalbuterol 0.63 MG/3 ML Inhal Soln UD IH PRN (01:04)
[2018-01-19] MEDS ORDERED: Digoxin 500 mcg/2ml (0.5 mg/2ml) Inj IVP ONE (03:11)
[2018-01-19] MEDS: diltiaZEM IVPB 100mg in NS 100 ML IV PRN ×2 (04:56→10:07)
[2018-01-19] MEDS: Metoprolol 1 mg/ml Inj IVP PRN ×2 (06:01→06:44)
[2018-01-19] MEDS ORDERED: Metoprolol 1 mg/ml Inj IVP PRN (06:40)
[2018-01-19 07:13] LABS: BASO # 0.02 K/mm3 (0.0-2.0); BASO % 0.2 % (0.0-3.0); EOS % 0.1 % (1.5-5.0); GRAN # 10.62 (1.4-6.5); GRAN % 80.3 % (50.0-68.0); HEMOGLOBIN 16.9 g/dL (14.0-18.0); LYMPH # 1.6 (1.2-3.4); LYMPH % 12.2 % (22.0-35.0); MEAN CELL VOLUME 91.3 fl (80.0-105.0); MEAN CORPUSCULAR HGB CONC 32.9 g/dl (31.0-37.0); MEAN PLATELET VOLUME 10.6 fl (7.0-11.0); MONO % 7.2 % (1.0-6.0); RBC 5.63 10^6/uL (3.5-6.1); RED CELL DISTRIBUTION WIDTH 14.3 % (11.5-14.5); WHITE BLOOD COUNT 13.2 10^3/ul (4.5-11.0)
[2018-01-19 07:21] LABS: ALB/GLOB RATIO 1.4 (1.1-1.8); ALBUMIN 4.2 g/dL (3.0-4.8); ALT/SGPT 79 U/L (7-56); AST/SGOT 45 U/L (17-59); BLOOD UREA NITROGEN 12 mg/dL (7-21); CALCIUM 8.8 mg/dL (8.4-10.5); GFR NON-AFRICAN AMERICAN > 60
[2018-01-19 07:43] LABS: TROPONIN I 0.15 ng/mL
--- NOTE | 2018-01-19 08:30 | RAD ---
Date of service: 01/18/2018 HISTORY: medical clearance COMPARISON: No prior. FINDINGS: LUNGS: No active pulmonary disease. PLEURA: No significant pleural effusion identified, no pneumothorax apparent. CARDIOVASCULAR: Mild vascular congestion. Mild cardiomegaly OSSEOUS STRUCTURES: No significant abnormalities. VISUALIZED UPPER ABDOMEN: Normal. OTHER FINDINGS: None. IMPRESSION: No active disease.
[2018-01-19] MEDS: Azithromycin 500MG/NS 250ml 500 MG/250 ML BAG IVPB SCH (09:03)
--- NOTE | 2018-01-19 09:06 | CT ---
Date of service: 01/18/2018 PROCEDURE: CT Chest with contrast (Pulmonary Angiogram) HISTORY: r/o PE COMPARISON: None available. TECHNIQUE: Axial computed tomography images were obtained of the chest in the pulmonary arterial phase of enhancement. Coronal and sagittal reformatted images were created and reviewed. Intravenous contrast dose: 150 cc of Omni 350 Radiation dose: Total exam DLP = 690 mGy-cm. This CT exam was performed using one or more of the following dose reduction techniques: Automated exposure control, adjustment of the mA and/or kV according to patient size, and/or use of iterative reconstruction technique. FINDINGS: PULMONARY ARTERIES: Unremarkable. No pulmonary embolism. AORTA: No acute findings. No thoracic aortic aneurysm. LUNGS: There is an infiltrate at the right lung base adjacent to a pleural effusion. This could represent compressive atelectasis PLEURAL SPACES: Moderate size right pleural effusion HEART: Unremarkable. No cardiomegaly. No significant pericardial effusion. LYMPH NODES: No lymphadenopathy. BONES, CHEST WALL: Unremarkable. No fracture or destructive lesion multilevel disc degeneration OTHER FINDINGS: The report concurs with the preliminary [facility] report IMPRESSION: No evidence of pulmonary embolus. Moderate size right pleural effusion with compressive atelectasis at the right lung base
[2018-01-19] MEDS: Heparin25000 units/250ml 1/2NS 25,000 UNITS/250 ML BAG IV PRN (10:05)
--- NOTE | 2018-01-19 10:28 | CARD ---
APPROVED REPORT Date of service: 01/19/2018 EKG Measurement Heart [id number] <Conclusion> Atrial flutter with variable AV block with premature ventricular or aberrantly conducted complexes Inferior infarct, age undetermined ST & T wave abnormality, consider anterolateral ischemia Prolonged QT Abnormal ECG
--- NOTE | 2018-01-19 10:36 | CARD ---
APPROVED REPORT Date of service: 01/18/2018 EKG Measurement Heart [id number] <Conclusion> Atrial flutter with 2:1 AV conduction Left axis deviation Pulmonary disease pattern Nonspecific T wave abnormality Abnormal ECG
--- NOTE | 2018-01-19 10:36 | CARD ---
APPROVED REPORT Date of service: 01/18/2018 EKG Measurement Heart [id number] <Conclusion> Atrial flutter with variable AV block Left axis deviation Abnormal ECG
--- NOTE | 2018-01-19 10:37 | CARD ---
APPROVED REPORT Date of service: 01/18/2018 EKG Measurement Heart [id number] <Conclusion> A flutter with 2:1 conduction Right bundle branch block T wave abnormality, consider inferior ischemia Abnormal ECG
[2018-01-19] MEDS ORDERED: Amiodarone 150 mg/D5W 100 ml 150 MG/100 ML BAG IVPB ONE (11:10)
[2018-01-19] MEDS ORDERED: Amiodarone 360 mg/D5W 200 ml 360 MG/200 ML BAG IV SCH (11:15)
--- NOTE | 2018-01-19 14:45 | CP.CCUPN ---
<Dale Lockwood - Last Filed: 01/19/18 14:11> CCU Subjective - Physician Review Subjective (Free Text): 01/19/18 14:11 Dale Lockwood DO PGY1 - Internal Medicine Record Maker - ICU Progress Note Patient seen and examined at bedside; sitting in chair; complaining of orthopnea and SOB. Denies chest pain, palpitations, abd pain, N/V/D/C, urinary discomfort. Remainder of 12 system ROS is negative. CCU Objective - Vital Signs / Intake & Output Intake and Output (Last 8hrs): Intake & Output 01/18/18 01/19/18 01/19/18 22:59 06:59 14:59 Intake Total 100 350 Output Total 1550 3000 Balance -1550 -2900 350 Weight 142.882 kg Intake: IV 100 350 Right Hand 0 Output: Urine 1550 3000 Urine, Voided 1550 3000 Stool 0 - Physical Exam Head: Positive for: Atraumatic, Normocephalic Pupils: Positive for: PERRL Extroacular Muscles: Positive for: EOMI Conjunctiva: Positive for: Normal Ears: Negative for: Erythema Mouth: Positive for: Moist Mucous Membranes Pharnyx: Negative for: ERYTHEMA, EXUDATE, TONSILS ENLARGED Nose (External): Positive for: Atraumatic. Negative for: Abrasion, Contusion Nose (Internal): Positive for: Normal Inspection, No Active Bleeding. Negative for: Rhinorrhea, Septal Hematoma, Epistaxis Neck: Positive for: Normal Range of Motion. Negative for: Meningeal Signs, MIDLINE TENDERNESS, Paraspinal Tenderness, Lymphadenopathy, Trachea Midline Respiratory/Chest: Positive for: Other (R air marin w/ diffuse wheezing and ronchi; L air marin clear to auscultation ) Cardiovascular: Positive for: Murmurs, Normal S1, S2, Tachycardic, Other ( Regular Rhythm) Abdomen: Negative for: Tenderness, Distention, Peritoneal Signs, Rebound, Guarding Back: Positive for: Normal Inspection Upper Extremity: Positive for: Normal Inspection, Normal ROM, NORMAL PULSES, Capillary Refill < 2s. Negative for: Cyanosis, Edema, Deformity Lower Extremity: Positive for: Normal Inspection, NORMAL PULSES, Normal ROM, Capillary Refill < 2 s, Other (3+ pitting edema BL ). Negative for: Edema, Tenderness, Swelling, Deformity Neurological: Positive for: GCS=15, CN II-XII Intact, Speech Normal, Motor Func Grossly Intact, Gait Normal, Memory Normal Skin: Positive for: Warm, Dry, Normal Color. Negative for: Rashes Psychiatric: Positive for: Alert, Oriented x 3, Normal Insight, Normal Concentration - Medications Active Medications: Active Medications Generic Name Dose Route Start Last Admin Trade Name Freq PRN Reason Stop Dose Admin Aspirin 81 mg 01/19/18 10:00 01/19/18 09:05 Ecotrin PO 81 mg DAILY JACKIE Administration Furosemide 40 mg 01/18/18 22:00 01/19/18 09:09 Lasix IVP 40 mg Q12 JACKIE Administration Heparin Sodium/Sodium Chloride 25,000 units in 250 mls @ 18.087 mls/hr 20:21 01/19/18 10:05 Heparin 05042 Units/250ml 1/2 Normal Saline IV 12.5 units/kg/hr .[id number] PRN 18.087 mls/hr ADJUST RATE PER PROTOCOL Administration Protocol 12.5 UNITS/KG/HR Azithromycin 500 mg in 250 mls @ 167 mls/hr 01/19/18 10:00 01/19/18 09:03 Zithromax 500mg In Ns IVPB 167 mls/hr DAILY JACKIE Administration Protocol Amiodarone HCl/Dextrose 360 mg in 200 mls @ 16.667 mls/hr 01/19/18 17:00 Nexterone 360 Mg In D5w 200 Ml (Premix) IV .Q12H JACKIE Protocol 0.5 MG/MIN Amiodarone HCl/Dextrose 360 mg in 200 mls @ 33.333 mls/hr 01/19/18 11:15 03/28 11:27 Nexterone 360 Mg In D5w 200 Ml (Premix) IV 33.333 mls/hr .Q6H JACKIE Administration Protocol 1 MG/MIN Levalbuterol HCl 0.63 mg 01/19/18 01:04 Xopenex IH [id number] PRN Shortness of Breath Pantoprazole Sodium 40 mg 01/19/18 10:00 01/19/18 09:08 Protonix Inj IVP 40 mg DAILY JACKIE Administration - Patient Studies Lab Studies: Lab Studies 01/19/18 01/19/18 01/19/18 Range/Units 09:20 06:10 06:10 WBC (4.5-11.0) 10^3/ul RBC (3.5-6.1) 10^6/uL Hgb (14.0-18.0) g/dL Hct (42.0-52.0) % MCV (80.0-105.0) fl MCH (25.0-35.0) pg MCHC (31.0-37.0) g/dl RDW (11.5-14.5) % Plt Count (120.0-450.0) 10^3/uL MPV (7.0-11.0) fl Gran % (50.0-68.0) % Lymph % (Auto) (22.0-35.0) % Curry % (Auto) (1.0-6.0) % Eos % (Auto) (1.5-5.0) % Baso % (Auto) (0.0-3.0) % Gran # (1.4-6.5) Lymph # (Auto) (1.2-3.4) Curry # (Auto) (0.1-0.6) Eos # (Auto) (0.0-0.7) Baso # (Auto) (0.0-2.0) K/mm3 APTT 80.3 H (25.1-36.5) Seconds Sodium (132-148) mmol/L Potassium (3.6-5.0) mmol/L Chloride (98-107) mmol/L Carbon Dioxide (21-33) mmol/L Anion Gap (10-20) BUN (7-21) mg/dL Creatinine (0.8-1.5) mg/dl Est GFR ( Amer) Est GFR (Non-Af Amer) Random Glucose (70-110) mg/dL Calcium (8.4-10.5) mg/dL Phosphorus (2.5-4.5) mg/dL Magnesium (1.7-2.2) mg/dL Total Bilirubin (0.2-1.3) mg/dL AST (17-59) U/L ALT (7-56) U/L Alkaline Phosphatase (38-126) U/L Troponin I ng/mL Total Protein (5.8-8.3) g/dL Albumin (3.0-4.8) g/dL Globulin gm/dL Albumin/Globulin Ratio (1.1-1.8) Procalcitonin (0.19-0.49) NG/ML Urine Color (YELLOW) Urine Appearance (CLEAR) Urine pH (4.7-8.0) Ur Specific [place] (1.005-1.035) Urine Protein (<30 mg/dL) mg/dL Urine Glucose (UA) (NEGATIVE) mg/dL Urine Ketones (NEGATIVE) mg/dL Urine Blood (NEGATIVE) Urine Nitrate (NEGATIVE) Urine Bilirubin (NEGATIVE) Urine Urobilinogen (<1 E.U./dL) E.U./dL Ur Leukocyte Esterase (NEGATIVE) Nayla/uL Digoxin 1.1 (0.8-2.0) ng/mL Urine Opiates Screen (NEGATIVE) Urine Methadone Screen (NEGATIVE) Ur Barbiturates Screen (NEGATIVE) Ur Phencyclidine Scrn (NEGATIVE) Ur Amphetamines Screen (NEGATIVE) U Benzodiazepines Scrn (NEGATIVE) U Oth Cocaine Metabols (NEGATIVE) U Cannabinoids Screen (NEGATIVE) Blood Type Blood Type Confirm O POSITIVE Antibody Screen BBK History Checked 01/19/18 01/19/18 01/19/18 Range/Units 06:10 06:10 03:05 WBC 13.2 H (4.5-11.0) 10^3/ul RBC 5.63 (3.5-6.1) 10^6/uL Hgb 16.9 (14.0-18.0) g/dL Hct 51.4 (42.0-52.0) % MCV 91.3 (80.0-105.0) fl MCH 30.0 (25.0-35.0) pg MCHC 32.9 (31.0-37.0) g/dl RDW 14.3 (11.5-14.5) % Plt Count 313 (120.0-450.0) 10^3/uL MPV 10.6 (7.0-11.0) fl Gran % 80.3 H (50.0-68.0) % Lymph % (Auto) 12.2 L (22.0-35.0) % Curry % (Auto) 7.2 H (1.0-6.0) % Eos % (Auto) 0.1 L (1.5-5.0) % Baso % (Auto) 0.2 (0.0-3.0) % Gran # 10.62 H (1.4-6.5) Lymph # (Auto) 1.6 (1.2-3.4) Curry # (Auto) 1.0 H (0.1-0.6) Eos # (Auto) 0.0 (0.0-0.7) Baso # (Auto) 0.02 (0.0-2.0) K/mm3 APTT 69.0 H (25.1-36.5) Seconds Sodium 143 (132-148) mmol/L Potassium 3.8 (3.6-5.0) mmol/L Chloride 104 (98-107) mmol/L Carbon Dioxide 27 (21-33) mmol/L Anion Gap 15 (10-20) BUN 12 (7-21) mg/dL Creatinine 1.0 (0.8-1.5) mg/dl Est GFR ( Amer) > 60 Est GFR (Non-Af Amer) > 60 Random Glucose 126 H (70-110) mg/dL Calcium 8.8 (8.4-10.5) mg/dL Phosphorus 4.3 (2.5-4.5) mg/dL Magnesium 1.9 (1.7-2.2) mg/dL Total Bilirubin 1.3 (0.2-1.3) mg/dL AST 45 (17-59) U/L ALT 79 H (7-56) U/L Alkaline Phosphatase 171 H (38-126) U/L Troponin I 0.15 H* D ng/mL Total Protein 7.3 (5.8-8.3) g/dL Albumin 4.2 (3.0-4.8) g/dL Globulin 3.1 gm/dL Albumin/Globulin Ratio 1.4 (1.1-1.8) Procalcitonin (0.19-0.49) NG/ML Urine Color (YELLOW) Urine Appearance (CLEAR) Urine pH (4.7-8.0) Ur Specific [place] (1.005-1.035) Urine Protein (<30 mg/dL) mg/dL Urine Glucose (UA) (NEGATIVE) mg/dL Urine Ketones (NEGATIVE) mg/dL Urine Blood (NEGATIVE) Urine Nitrate (NEGATIVE) Urine Bilirubin (NEGATIVE) Urine Urobilinogen (<1 E.U./dL) E.U./dL Ur Leukocyte Esterase (NEGATIVE) Nayla/uL Digoxin (0.8-2.0) ng/mL Urine Opiates Screen (NEGATIVE) Urine Methadone Screen (NEGATIVE) Ur Barbiturates Screen (NEGATIVE) Ur Phencyclidine Scrn (NEGATIVE) Ur Amphetamines Screen (NEGATIVE) U Benzodiazepines Scrn (NEGATIVE) U Oth Cocaine Metabols (NEGATIVE) U Cannabinoids Screen (NEGATIVE) Blood Type Blood Type Confirm Antibody Screen BBK History Checked 01/19/18 01/19/18 01/18/18 Range/Units 00:45 00:45 22:25 WBC (4.5-11.0) 10^3/ul RBC (3.5-6.1) 10^6/uL Hgb (14.0-18.0) g/dL Hct (42.0-52.0) % MCV (80.0-105.0) fl MCH (25.0-35.0) pg MCHC (31.0-37.0) g/dl RDW (11.5-14.5) % Plt Count (120.0-450.0) 10^3/uL MPV (7.0-11.0) fl Gran % (50.0-68.0) % Lymph % (Auto) (22.0-35.0) % Curry % (Auto) (1.0-6.0) % Eos % (Auto) (1.5-5.0) % Baso % (Auto) (0.0-3.0) % Gran # (1.4-6.5) Lymph # (Auto) (1.2-3.4) Curry # (Auto) (0.1-0.6) Eos # (Auto) (0.0-0.7) Baso # (Auto) (0.0-2.0) K/mm3 APTT (25.1-36.5) Seconds Sodium (132-148) mmol/L Potassium (3.6-5.0) mmol/L Chloride (98-107) mmol/L Carbon Dioxide (21-33) mmol/L Anion Gap (10-20) BUN (7-21) mg/dL Creatinine (0.8-1.5) mg/dl Est GFR ( Amer) Est GFR (Non-Af Amer) Random Glucose (70-110) mg/dL Calcium (8.4-10.5) mg/dL Phosphorus (2.5-4.5) mg/dL Magnesium (1.7-2.2) mg/dL Total Bilirubin (0.2-1.3) mg/dL AST (17-59) U/L ALT (7-56) U/L Alkaline Phosphatase (38-126) U/L Troponin I 0.19 H* D ng/mL Total Protein (5.8-8.3) g/dL Albumin (3.0-4.8) g/dL Globulin gm/dL Albumin/Globulin Ratio (1.1-1.8) Procalcitonin 0.07 L (0.19-0.49) NG/ML Urine Color (YELLOW) Urine Appearance (CLEAR) Urine pH (4.7-8.0) Ur Specific [place] (1.005-1.035) Urine Protein (<30 mg/dL) mg/dL Urine Glucose (UA) (NEGATIVE) mg/dL Urine Ketones (NEGATIVE) mg/dL Urine Blood (NEGATIVE) Urine Nitrate (NEGATIVE) Urine Bilirubin (NEGATIVE) Urine Urobilinogen (<1 E.U./dL) E.U./dL Ur Leukocyte Esterase (NEGATIVE) Nayla/uL Digoxin (0.8-2.0) ng/mL Urine Opiates Screen (NEGATIVE) Urine Methadone Screen (NEGATIVE) Ur Barbiturates Screen (NEGATIVE) Ur Phencyclidine Scrn (NEGATIVE) Ur Amphetamines Screen (NEGATIVE) U Benzodiazepines Scrn (NEGATIVE) U Oth Cocaine Metabols (NEGATIVE) U Cannabinoids Screen (NEGATIVE) Blood Type O POSITIVE Blood Type Confirm Antibody Screen Negative BBK History Checked No verified bt 01/18/18 01/18/18 Range/Units 22:16 22:16 WBC (4.5-11.0) 10^3/ul RBC (3.5-6.1) 10^6/uL Hgb (14.0-18.0) g/dL Hct (42.0-52.0) % MCV (80.0-105.0) fl MCH (25.0-35.0) pg MCHC (31.0-37.0) g/dl RDW (11.5-14.5) % Plt Count (120.0-450.0) 10^3/uL MPV (7.0-11.0) fl Gran % (50.0-68.0) % Lymph % (Auto) (22.0-35.0) % Curry % (Auto) (1.0-6.0) % Eos % (Auto) (1.5-5.0) % Baso % (Auto) (0.0-3.0) % Gran # (1.4-6.5) Lymph # (Auto) (1.2-3.4) Curry # (Auto) (0.1-0.6) Eos # (Auto) (0.0-0.7) Baso # (Auto) (0.0-2.0) K/mm3 APTT (25.1-36.5) Seconds Sodium (132-148) mmol/L Potassium (3.6-5.0) mmol/L Chloride (98-107) mmol/L Carbon Dioxide (21-33) mmol/L Anion Gap (10-20) BUN (7-21) mg/dL Creatinine (0.8-1.5) mg/dl Est GFR ( Amer) Est GFR (Non-Af Amer) Random Glucose (70-110) mg/dL Calcium (8.4-10.5) mg/dL Phosphorus (2.5-4.5) mg/dL Magnesium (1.7-2.2) mg/dL Total Bilirubin (0.2-1.3) mg/dL AST (17-59) U/L ALT (7-56) U/L Alkaline Phosphatase (38-126) U/L Troponin I ng/mL Total Protein (5.8-8.3) g/dL Albumin (3.0-4.8) g/dL Globulin gm/dL Albumin/Globulin Ratio (1.1-1.8) Procalcitonin (0.19-0.49) NG/ML Urine Color Colorless (YELLOW) Urine Appearance Clear (CLEAR) Urine pH 6.0 (4.7-8.0) Ur Specific [place] <= 1.005 (1.005-1.035) Urine Protein Negative (<30 mg/dL) mg/dL Urine Glucose (UA) Negative (NEGATIVE) mg/dL Urine Ketones Negative (NEGATIVE) mg/dL Urine Blood Negative (NEGATIVE) Urine Nitrate Negative (NEGATIVE) Urine Bilirubin Negative (NEGATIVE) Urine Urobilinogen 0.2 (<1 E.U./dL) E.U./dL Ur Leukocyte Esterase Negative (NEGATIVE) Nayla/uL Digoxin (0.8-2.0) ng/mL Urine Opiates Screen Negative (NEGATIVE) Urine Methadone Screen Negative (NEGATIVE) Ur Barbiturates Screen Negative (NEGATIVE) Ur Phencyclidine Scrn Negative (NEGATIVE) Ur Amphetamines Screen Negative (NEGATIVE) U Benzodiazepines Scrn Negative (NEGATIVE) U Oth Cocaine Metabols Negative (NEGATIVE) U Cannabinoids Screen Positive H (NEGATIVE) Blood Type Blood Type Confirm Antibody Screen BBK History Checked Laboratory Results - last 24 hr 01/18/18 01/18/18 01/18/18 22:16 22:16 22:25 WBC RBC Hgb Hct MCV MCH MCHC RDW Plt Count MPV Gran % Lymph % (Auto) Curry % (Auto) Eos % (Auto) Baso % (Auto) Gran # Lymph # (Auto) Curry # (Auto) Eos # (Auto) Baso # (Auto) APTT Sodium Potassium Chloride Carbon Dioxide Anion Gap BUN Creatinine Est GFR ( Amer) Est GFR (Non-Af Amer) Random Glucose Calcium Phosphorus Magnesium Total Bilirubin AST ALT Alkaline Phosphatase Troponin I Total Protein Albumin Globulin Albumin/Globulin Ratio Procalcitonin 0.07 L Urine Color Colorless Urine Appearance Clear Urine pH 6.0 Ur Specific [place] <= 1.005 Urine Protein Negative Urine Glucose (UA) Negative Urine Ketones Negative Urine Blood Negative Urine Nitrate Negative Urine Bilirubin Negative Urine Urobilinogen 0.2 Ur Leukocyte Esterase Negative Digoxin Urine Opiates Screen Negative Urine Methadone Screen Negative Ur Barbiturates Screen Negative Ur Phencyclidine Scrn Negative Ur Amphetamines Screen Negative U Benzodiazepines Scrn Negative U Oth Cocaine Metabols Negative U Cannabinoids Screen Positive H Blood Type Blood Type Confirm Antibody Screen BBK History Checked 01/19/18 01/19/18 01/19/18 00:45 00:45 03:05 WBC RBC Hgb Hct MCV MCH MCHC RDW Plt Count MPV Gran % Lymph % (Auto) Curry % (Auto) Eos % (Auto) Baso % (Auto) Gran # Lymph # (Auto) Curry # (Auto) Eos # (Auto) Baso # (Auto) APTT 69.0 H Sodium Potassium Chloride Carbon Dioxide Anion Gap BUN Creatinine Est GFR ( Amer) Est GFR (Non-Af Amer) Random Glucose Calcium Phosphorus Magnesium Total Bilirubin AST ALT Alkaline Phosphatase Troponin I 0.19 H* D Total Protein Albumin Globulin Albumin/Globulin Ratio Procalcitonin Urine Color Urine Appearance Urine pH Ur Specific [place] Urine Protein Urine Glucose (UA) Urine Ketones Urine Blood Urine Nitrate Urine Bilirubin Urine Urobilinogen Ur Leukocyte Esterase Digoxin Urine Opiates Screen Urine Methadone Screen Ur Barbiturates Screen Ur Phencyclidine Scrn Ur Amphetamines Screen U Benzodiazepines Scrn U Oth Cocaine Metabols U Cannabinoids Screen Blood Type O POSITIVE Blood Type Confirm Antibody Screen Negative BBK History Checked No verified bt 01/19/18 01/19/18 01/19/18 06:10 06:10 06:10 WBC 13.2 H RBC 5.63 Hgb 16.9 Hct 51.4 MCV 91.3 MCH 30.0 MCHC 32.9 RDW 14.3 Plt Count 313 MPV 10.6 Gran % 80.3 H Lymph % (Auto) 12.2 L Curry % (Auto) 7.2 H Eos % (Auto) 0.1 L Baso % (Auto) 0.2 Gran # 10.62 H Lymph # (Auto) 1.6 Curry # (Auto) 1.0 H Eos # (Auto) 0.0 Baso # (Auto) 0.02 APTT Sodium 143 Potassium 3.8 Chloride 104 Carbon Dioxide 27 Anion Gap 15 BUN 12 Creatinine 1.0 Est GFR ( Amer) > 60 Est GFR (Non-Af Amer) > 60 Random Glucose 126 H Calcium 8.8 Phosphorus 4.3 Magnesium 1.9 Total Bilirubin 1.3 AST 45 ALT 79 H Alkaline Phosphatase 171 H Troponin I 0.15 H* D Total Protein 7.3 Albumin 4.2 Globulin 3.1 Albumin/Globulin Ratio 1.4 Procalcitonin Urine Color Urine Appearance Urine pH Ur Specific [place] Urine Protein Urine Glucose (UA) Urine Ketones Urine Blood Urine Nitrate Urine Bilirubin Urine Urobilinogen Ur Leukocyte Esterase Digoxin Urine Opiates Screen Urine Methadone Screen Ur Barbiturates Screen Ur Phencyclidine Scrn Ur Amphetamines Screen U Benzodiazepines Scrn U Oth Cocaine Metabols U Cannabinoids Screen Blood Type Blood Type Confirm O POSITIVE Antibody Screen BBK History Checked 01/19/18 01/19/18 06:10 09:20 WBC RBC Hgb Hct MCV MCH MCHC RDW Plt Count MPV Gran % Lymph % (Auto) Curry % (Auto) Eos % (Auto) Baso % (Auto) Gran # Lymph # (Auto) Curry # (Auto) Eos # (Auto) Baso # (Auto) APTT 80.3 H Sodium Potassium Chloride Carbon Dioxide Anion Gap BUN Creatinine Est GFR ( Amer) Est GFR (Non-Af Amer) Random Glucose Calcium Phosphorus Magnesium Total Bilirubin AST ALT Alkaline Phosphatase Troponin I Total Protein Albumin Globulin Albumin/Globulin Ratio Procalcitonin Urine Color Urine Appearance Urine pH Ur Specific [place] Urine Protein Urine Glucose (UA) Urine Ketones Urine Blood Urine Nitrate Urine Bilirubin Urine Urobilinogen Ur Leukocyte Esterase Digoxin 1.1 Urine Opiates Screen Urine Methadone Screen Ur Barbiturates Screen Ur Phencyclidine Scrn Ur Amphetamines Screen U Benzodiazepines Scrn U Oth Cocaine Metabols U Cannabinoids Screen Blood Type Blood Type Confirm Antibody Screen BBK History Checked EKG/Cardiology Studies: Cardiology / EKG Studies 01/19/18 06:00 ELECTROCARDIOGRAM Routine Comment: Reason For Exam: r/o acs Review of Systems - Review of Systems All systems: reviewed and no additional remarkable complaints except Review of Systems: as per HPI Critical Care Progress Note - Nutrition Nutrition: Nutrition Category Date Time Status Heart Healthy Diet [DIET] Diets 01/19/18 Lunch Active Assessment/Plan - Assessment and Plan (Free Text) Assessment: 67M found to be in acute new onset CHF exacerbation 2/2 Atrial Flutter w/ RVR. Neuro: AAO3 No FND Reorient as needed Cardio: Aflutter w/ RVR Patient failed rate conversion w/ cardizem and metoprolol Started amiodarone bolus w/ amio gtt @ 1mg/min for 6 hours followed by amio gtt 0.5mg/min Will reassess after intervention Patient is HD stable; does not require synchornized electro cardioversion at this time Continue monitoring Maintain Map >65 Cardiology following Salt Fluid 800ml restriction Strict IO Lasix 40 IVP BID Lopressor 5mg IVP PRN HR >120 Troponin leak - ML 2/2 demand ischemia C/w Heparin Gtt Pulm: Patient may have new onset COPD C/w Xopenex PRN at this time C/w Azithromycin at this time Satting >95% on 4L NC GI: Heart healthy diet 2GM Na restriction 800ml Fluid restriction Nephro : 4.5L Urine output Lasix 40 IVP BID Monitor IO Patient was seen discussed and examined w/ attending physician Dr. Lashay Lockwood DO PGY1 - Internal Medicine Record Maker - Pager [phone] - Date & Time Date: 01/19/18 Time: 15:54 <Jermaine Metz - Last Filed: 01/19/18 18:36> CCU Objective - Vital Signs / Intake & Output Vital Signs (Last 4 hours): Vital Signs Pulse Resp BP Pulse Ox 01/19/18 16:47 123 H 01/19/18 16:07 132 H 109/58 L 01/19/18 14:40 138 H 38 H 98 Intake and Output (Last 8hrs): Intake & Output 01/19/18 01/19/18 01/19/18 06:59 14:59 22:59 Intake Total 531 124 8387 Output Total 3000 1500 Balance -2900 350 -222 Weight 315 lb Intake: IV 100 350 798 Right Hand 0 Zithromycin 250 amiodarone 332 heparin 216 Oral 480 Output: Urine 3000 1500 Urine, Voided 3000 1500 Stool 0 0 Emesis 0 - Medications Active Medications: Active Medications Generic Name Dose Route Start Last Admin Trade Name Freq PRN Reason Stop Dose Admin Aspirin 81 mg 01/19/18 10:00 01/19/18 09:05 Ecotrin PO 81 mg DAILY JACKIE Administration Furosemide 40 mg 01/18/18 22:00 01/19/18 09:09 Lasix IVP 40 mg Q12 JACKIE Administration Heparin Sodium/Sodium Chloride 25,000 units in 250 mls @ 18.087 mls/hr 20:21 01/19/18 10:05 Heparin 95579 Units/250ml 1/2 Normal Saline IV 12.5 units/kg/hr .[id number] PRN 18.087 mls/hr ADJUST RATE PER PROTOCOL Administration Protocol 12.5 UNITS/KG/HR Azithromycin 500 mg in 250 mls @ 167 mls/hr 01/19/18 10:00 01/19/18 09:03 Zithromax 500mg In Ns IVPB 167 mls/hr DAILY JACKIE Administration Protocol Amiodarone HCl/Dextrose 360 mg in 200 mls @ 16.667 mls/hr 01/19/18 17:00 03/28 17:37 Nexterone 360 Mg In D5w 200 Ml (Premix) IV 16.667 mls/hr .Q12H JACKIE Administration Protocol 0.5 MG/MIN diltiaZEM IVPB 100mg in NS 100 mls @ 5 mls/hr 01/19/18 16:42 Cardizem 100mg In Ns IV .Q20H PRN TITRATE PER MD ORDER Protocol 5 MG/HR Levalbuterol HCl 0.63 mg 01/19/18 01:04 Xopenex IH [id number] PRN Shortness of Breath Pantoprazole Sodium 40 mg 01/19/18 10:00 01/19/18 09:08 Protonix Inj IVP 40 mg DAILY JACKIE Administration - Patient Studies Lab Studies: Lab Studies 01/19/18 01/19/18 01/19/18 Range/Units 09:20 06:10 06:10 WBC (4.5-11.0) 10^3/ul RBC (3.5-6.1) 10^6/uL Hgb (14.0-18.0) g/dL Hct (42.0-52.0) % MCV (80.0-105.0) fl MCH (25.0-35.0) pg MCHC (31.0-37.0) g/dl RDW (11.5-14.5) % Plt Count (120.0-450.0) 10^3/uL MPV (7.0-11.0) fl Gran % (50.0-68.0) % Lymph % (Auto) (22.0-35.0) % Curry % (Auto) (1.0-6.0) % Eos % (Auto) (1.5-5.0) % Baso % (Auto) (0.0-3.0) % Gran # (1.4-6.5) Lymph # (Auto) (1.2-3.4) Curry # (Auto) (0.1-0.6) Eos # (Auto) (0.0-0.7) Baso # (Auto) (0.0-2.0) K/mm3 APTT 80.3 H (25.1-36.5) Seconds Sodium (132-148) mmol/L Potassium (3.6-5.0) mmol/L Chloride (98-107) mmol/L Carbon Dioxide (21-33) mmol/L Anion Gap (10-20) BUN (7-21) mg/dL Creatinine (0.8-1.5) mg/dl Est GFR ( Amer) Est GFR (Non-Af Amer) Random Glucose (70-110) mg/dL Calcium (8.4-10.5) mg/dL Phosphorus (2.5-4.5) mg/dL Magnesium (1.7-2.2) mg/dL Total Bilirubin (0.2-1.3) mg/dL AST (17-59) U/L ALT (7-56) U/L Alkaline Phosphatase (38-126) U/L Troponin I ng/mL Total Protein (5.8-8.3) g/dL Albumin (3.0-4.8) g/dL Globulin gm/dL Albumin/Globulin Ratio (1.1-1.8) Procalcitonin (0.19-0.49) NG/ML Urine Color (YELLOW) Urine Appearance (CLEAR) Urine pH (4.7-8.0) Ur Specific [place] (1.005-1.035) Urine Protein (<30 mg/dL) mg/dL Urine Glucose (UA) (NEGATIVE) mg/dL Urine Ketones (NEGATIVE) mg/dL Urine Blood (NEGATIVE) Urine Nitrate (NEGATIVE) Urine Bilirubin (NEGATIVE) Urine Urobilinogen (<1 E.U./dL) E.U./dL Ur Leukocyte Esterase (NEGATIVE) Nayla/uL Digoxin 1.1 (0.8-2.0) ng/mL Urine Opiates Screen (NEGATIVE) Urine Methadone Screen (NEGATIVE) Ur Barbiturates Screen (NEGATIVE) Ur Phencyclidine Scrn (NEGATIVE) Ur Amphetamines Screen (NEGATIVE) U Benzodiazepines Scrn (NEGATIVE) U Oth Cocaine Metabols (NEGATIVE) U Cannabinoids Screen (NEGATIVE) Blood Type Blood Type Confirm O POSITIVE Antibody Screen BBK History Checked 01/19/18 01/19/18 01/19/18 Range/Units 06:10 06:10 03:05 WBC 13.2 H (4.5-11.0) 10^3/ul RBC 5.63 (3.5-6.1) 10^6/uL Hgb 16.9 (14.0-18.0) g/dL Hct 51.4 (42.0-52.0) % MCV 91.3 (80.0-105.0) fl MCH 30.0 (25.0-35.0) pg MCHC 32.9 (31.0-37.0) g/dl RDW 14.3 (11.5-14.5) % Plt Count 313 (120.0-450.0) 10^3/uL MPV 10.6 (7.0-11.0) fl Gran % 80.3 H (50.0-68.0) % Lymph % (Auto) 12.2 L (22.0-35.0) % Curry % (Auto) 7.2 H (1.0-6.0) % Eos % (Auto) 0.1 L (1.5-5.0) % Baso % (Auto) 0.2 (0.0-3.0) % Gran # 10.62 H (1.4-6.5) Lymph # (Auto) 1.6 (1.2-3.4) Curry # (Auto) 1.0 H (0.1-0.6) Eos # (Auto) 0.0 (0.0-0.7) Baso # (Auto) 0.02 (0.0-2.0) K/mm3 APTT 69.0 H (25.1-36.5) Seconds Sodium 143 (132-148) mmol/L Potassium 3.8 (3.6-5.0) mmol/L Chloride 104 (98-107) mmol/L Carbon Dioxide 27 (21-33) mmol/L Anion Gap 15 (10-20) BUN 12 (7-21) mg/dL Creatinine 1.0 (0.8-1.5) mg/dl Est GFR ( Amer) > 60 Est GFR (Non-Af Amer) > 60 Random Glucose 126 H (70-110) mg/dL Calcium 8.8 (8.4-10.5) mg/dL Phosphorus 4.3 (2.5-4.5) mg/dL Magnesium 1.9 (1.7-2.2) mg/dL Total Bilirubin 1.3 (0.2-1.3) mg/dL AST 45 (17-59) U/L ALT 79 H (7-56) U/L Alkaline Phosphatase 171 H (38-126) U/L Troponin I 0.15 H* D ng/mL Total Protein 7.3 (5.8-8.3) g/dL Albumin 4.2 (3.0-4.8) g/dL Globulin 3.1 gm/dL Albumin/Globulin Ratio 1.4 (1.1-1.8) Procalcitonin (0.19-0.49) NG/ML Urine Color (YELLOW) Urine Appearance (CLEAR) Urine pH (4.7-8.0) Ur Specific [place] (1.005-1.035) Urine Protein (<30 mg/dL) mg/dL Urine Glucose (UA) (NEGATIVE) mg/dL Urine Ketones (NEGATIVE) mg/dL Urine Blood (NEGATIVE) Urine Nitrate (NEGATIVE) Urine Bilirubin (NEGATIVE) Urine Urobilinogen (<1 E.U./dL) E.U./dL Ur Leukocyte Esterase (NEGATIVE) Nayla/uL Digoxin (0.8-2.0) ng/mL Urine Opiates Screen (NEGATIVE) Urine Methadone Screen (NEGATIVE) Ur Barbiturates Screen (NEGATIVE) Ur Phencyclidine Scrn (NEGATIVE) Ur Amphetamines Screen (NEGATIVE) U Benzodiazepines Scrn (NEGATIVE) U Oth Cocaine Metabols (NEGATIVE) U Cannabinoids Screen (NEGATIVE) Blood Type Blood Type Confirm Antibody Screen BBK History Checked 01/19/18 01/19/18 01/18/18 Range/Units 00:45 00:45 22:25 WBC (4.5-11.0) 10^3/ul RBC (3.5-6.1) 10^6/uL Hgb (14.0-18.0) g/dL Hct (42.0-52.0) % MCV (80.0-105.0) fl MCH (25.0-35.0) pg MCHC (31.0-37.0) g/dl RDW (11.5-14.5) % Plt Count (120.0-450.0) 10^3/uL MPV (7.0-11.0) fl Gran % (50.0-68.0) % Lymph % (Auto) (22.0-35.0) % Curry % (Auto) (1.0-6.0) % Eos % (Auto) (1.5-5.0) % Baso % (Auto) (0.0-3.0) % Gran # (1.4-6.5) Lymph # (Auto) (1.2-3.4) Curry # (Auto) (0.1-0.6) Eos # (Auto) (0.0-0.7) Baso # (Auto) (0.0-2.0) K/mm3 APTT (25.1-36.5) Seconds Sodium (132-148) mmol/L Potassium (3.6-5.0) mmol/L Chloride (98-107) mmol/L Carbon Dioxide (21-33) mmol/L Anion Gap (10-20) BUN (7-21) mg/dL Creatinine (0.8-1.5) mg/dl Est GFR ( Amer) Est GFR (Non-Af Amer) Random Glucose (70-110) mg/dL Calcium (8.4-10.5) mg/dL Phosphorus (2.5-4.5) mg/dL Magnesium (1.7-2.2) mg/dL Total Bilirubin (0.2-1.3) mg/dL AST (17-59) U/L ALT (7-56) U/L Alkaline Phosphatase (38-126) U/L Troponin I 0.19 H* D ng/mL Total Protein (5.8-8.3) g/dL Albumin (3.0-4.8) g/dL Globulin gm/dL Albumin/Globulin Ratio (1.1-1.8) Procalcitonin 0.07 L (0.19-0.49) NG/ML Urine Color (YELLOW) Urine Appearance (CLEAR) Urine pH (4.7-8.0) Ur Specific [place] (1.005-1.035) Urine Protein (<30 mg/dL) mg/dL Urine Glucose (UA) (NEGATIVE) mg/dL Urine Ketones (NEGATIVE) mg/dL Urine Blood (NEGATIVE) Urine Nitrate (NEGATIVE) Urine Bilirubin (NEGATIVE) Urine Urobilinogen (<1 E.U./dL) E.U./dL Ur Leukocyte Esterase (NEGATIVE) Nayla/uL Digoxin (0.8-2.0) ng/mL Urine Opiates Screen (NEGATIVE) Urine Methadone Screen (NEGATIVE) Ur Barbiturates Screen (NEGATIVE) Ur Phencyclidine Scrn (NEGATIVE) Ur Amphetamines Screen (NEGATIVE) U Benzodiazepines Scrn (NEGATIVE) U Oth Cocaine Metabols (NEGATIVE) U Cannabinoids Screen (NEGATIVE) Blood Type O POSITIVE Blood Type Confirm Antibody Screen Negative BBK History Checked No verified bt 01/18/18 01/18/18 Range/Units 22:16 22:16 WBC (4.5-11.0) 10^3/ul RBC (3.5-6.1) 10^6/uL Hgb (14.0-18.0) g/dL Hct (42.0-52.0) % MCV (80.0-105.0) fl MCH (25.0-35.0) pg MCHC (31.0-37.0) g/dl RDW (11.5-14.5) % Plt Count (120.0-450.0) 10^3/uL MPV (7.0-11.0) fl Gran % (50.0-68.0) % Lymph % (Auto) (22.0-35.0) % Curry % (Auto) (1.0-6.0) % Eos % (Auto) (1.5-5.0) % Baso % (Auto) (0.0-3.0) % Gran # (1.4-6.5) Lymph # (Auto) (1.2-3.4) Curry # (Auto) (0.1-0.6) Eos # (Auto) (0.0-0.7) Baso # (Auto) (0.0-2.0) K/mm3 APTT (25.1-36.5) Seconds Sodium (132-148) mmol/L Potassium (3.6-5.0) mmol/L Chloride (98-107) mmol/L Carbon Dioxide (21-33) mmol/L Anion Gap (10-20) BUN (7-21) mg/dL Creatinine (0.8-1.5) mg/dl Est GFR ( Amer) Est GFR (Non-Af Amer) Random Glucose (70-110) mg/dL Calcium (8.4-10.5) mg/dL Phosphorus (2.5-4.5) mg/dL Magnesium (1.7-2.2) mg/dL Total Bilirubin (0.2-1.3) mg/dL AST (17-59) U/L ALT (7-56) U/L Alkaline Phosphatase (38-126) U/L Troponin I ng/mL Total Protein (5.8-8.3) g/dL Albumin (3.0-4.8) g/dL Globulin gm/dL Albumin/Globulin Ratio (1.1-1.8) Procalcitonin (0.19-0.49) NG/ML Urine Color Colorless (YELLOW) Urine Appearance Clear (CLEAR) Urine pH 6.0 (4.7-8.0) Ur Specific [place] <= 1.005 (1.005-1.035) Urine Protein Negative (<30 mg/dL) mg/dL Urine Glucose (UA) Negative (NEGATIVE) mg/dL Urine Ketones Negative (NEGATIVE) mg/dL Urine Blood Negative (NEGATIVE) Urine Nitrate Negative (NEGATIVE) Urine Bilirubin Negative (NEGATIVE) Urine Urobilinogen 0.2 (<1 E.U./dL) E.U./dL Ur Leukocyte Esterase Negative (NEGATIVE) Nayla/uL Digoxin (0.8-2.0) ng/mL Urine Opiates Screen Negative (NEGATIVE) Urine Methadone Screen Negative (NEGATIVE) Ur Barbiturates Screen Negative (NEGATIVE) Ur Phencyclidine Scrn Negative (NEGATIVE) Ur Amphetamines Screen Negative (NEGATIVE) U Benzodiazepines Scrn Negative (NEGATIVE) U Oth Cocaine Metabols Negative (NEGATIVE) U Cannabinoids Screen Positive H (NEGATIVE) Blood Type Blood Type Confirm Antibody Screen BBK History Checked Laboratory Results - last 24 hr 01/18/18 01/18/18 01/18/18 22:16 22:16 22:25 WBC RBC Hgb Hct MCV MCH MCHC RDW Plt Count MPV Gran % Lymph % (Auto) Curry % (Auto) Eos % (Auto) Baso % (Auto) Gran # Lymph # (Auto) Curry # (Auto) Eos # (Auto) Baso # (Auto) APTT Sodium Potassium Chloride Carbon Dioxide Anion Gap BUN Creatinine Est GFR ( Amer) Est GFR (Non-Af Amer) Random Glucose Calcium Phosphorus Magnesium Total Bilirubin AST ALT Alkaline Phosphatase Troponin I Total Protein Albumin Globulin Albumin/Globulin Ratio Procalcitonin 0.07 L Urine Color Colorless Urine Appearance Clear Urine pH 6.0 Ur Specific [place] <= 1.005 Urine Protein Negative Urine Glucose (UA) Negative Urine Ketones Negative Urine Blood Negative Urine Nitrate Negative Urine Bilirubin Negative Urine Urobilinogen 0.2 Ur Leukocyte Esterase Negative Digoxin Urine Opiates Screen Negative Urine Methadone Screen Negative Ur Barbiturates Screen Negative Ur Phencyclidine Scrn Negative Ur Amphetamines Screen Negative U Benzodiazepines Scrn Negative U Oth Cocaine Metabols Negative U Cannabinoids Screen Positive H Blood Type Blood Type Confirm Antibody Screen BBK History Checked 01/19/18 01/19/18 01/19/18 00:45 00:45 03:05 WBC RBC Hgb Hct MCV MCH MCHC RDW Plt Count MPV Gran % Lymph % (Auto) Curry % (Auto) Eos % (Auto) Baso % (Auto) Gran # Lymph # (Auto) Curry # (Auto) Eos # (Auto) Baso # (Auto) APTT 69.0 H Sodium Potassium Chloride Carbon Dioxide Anion Gap BUN Creatinine Est GFR ( Amer) Est GFR (Non-Af Amer) Random Glucose Calcium Phosphorus Magnesium Total Bilirubin AST ALT Alkaline Phosphatase Troponin I 0.19 H* D Total Protein Albumin Globulin Albumin/Globulin Ratio Procalcitonin Urine Color Urine Appearance Urine pH Ur Specific [place] Urine Protein Urine Glucose (UA) Urine Ketones Urine Blood Urine Nitrate Urine Bilirubin Urine Urobilinogen Ur Leukocyte Esterase Digoxin Urine Opiates Screen Urine Methadone Screen Ur Barbiturates Screen Ur Phencyclidine Scrn Ur Amphetamines Screen U Benzodiazepines Scrn U Oth Cocaine Metabols U Cannabinoids Screen Blood Type O POSITIVE Blood Type Confirm Antibody Screen Negative BBK History Checked No verified bt 01/19/18 01/19/18 01/19/18 06:10 06:10 06:10 WBC 13.2 H RBC 5.63 Hgb 16.9 Hct 51.4 MCV 91.3 MCH 30.0 MCHC 32.9 RDW 14.3 Plt Count 313 MPV 10.6 Gran % 80.3 H Lymph % (Auto) 12.2 L Curry % (Auto) 7.2 H Eos % (Auto) 0.1 L Baso % (Auto) 0.2 Gran # 10.62 H Lymph # (Auto) 1.6 Curry # (Auto) 1.0 H Eos # (Auto) 0.0 Baso # (Auto) 0.02 APTT Sodium 143 Potassium 3.8 Chloride 104 Carbon Dioxide 27 Anion Gap 15 BUN 12 Creatinine 1.0 Est GFR ( Amer) > 60 Est GFR (Non-Af Amer) > 60 Random Glucose 126 H Calcium 8.8 Phosphorus 4.3 Magnesium 1.9 Total Bilirubin 1.3 AST 45 ALT 79 H Alkaline Phosphatase 171 H Troponin I 0.15 H* D Total Protein 7.3 Albumin 4.2 Globulin 3.1 Albumin/Globulin Ratio 1.4 Procalcitonin Urine Color Urine Appearance Urine pH Ur Specific [place] Urine Protein Urine Glucose (UA) Urine Ketones Urine Blood Urine Nitrate Urine Bilirubin Urine Urobilinogen Ur Leukocyte Esterase Digoxin Urine Opiates Screen Urine Methadone Screen Ur Barbiturates Screen Ur Phencyclidine Scrn Ur Amphetamines Screen U Benzodiazepines Scrn U Oth Cocaine Metabols U Cannabinoids Screen Blood Type Blood Type Confirm O POSITIVE Antibody Screen BBK History Checked 01/19/18 01/19/18 06:10 09:20 WBC RBC Hgb Hct MCV MCH MCHC RDW Plt Count MPV Gran % Lymph % (Auto) Curry % (Auto) Eos % (Auto) Baso % (Auto) Gran # Lymph # (Auto) Curry # (Auto) Eos # (Auto) Baso # (Auto) APTT 80.3 H Sodium Potassium Chloride Carbon Dioxide Anion Gap BUN Creatinine Est GFR ( Amer) Est GFR (Non-Af Amer) Random Glucose Calcium Phosphorus Magnesium Total Bilirubin AST ALT Alkaline Phosphatase Troponin I Total Protein Albumin Globulin Albumin/Globulin Ratio Procalcitonin Urine Color Urine Appearance Urine pH Ur Specific [place] Urine Protein Urine Glucose (UA) Urine Ketones Urine Blood Urine Nitrate Urine Bilirubin Urine Urobilinogen Ur Leukocyte Esterase Digoxin 1.1 Urine Opiates Screen Urine Methadone Screen Ur Barbiturates Screen Ur Phencyclidine Scrn Ur Amphetamines Screen U Benzodiazepines Scrn U Oth Cocaine Metabols U Cannabinoids Screen Blood Type Blood Type Confirm Antibody Screen BBK History Checked EKG/Cardiology Studies: Cardiology / EKG Studies 01/19/18 06:00 ELECTROCARDIOGRAM Routine Comment: Reason For Exam: r/o acs Critical Care Progress Note - Nutrition Nutrition: Nutrition Category Date Time Status Heart Healthy Diet [DIET] Diets 01/19/18 Lunch Active Addendum Addendum: 01/19/18 18:35 ICU Attending Addendum: Patient seen and examined. Case reviewed on round with housestaff. Agree with resident note above with the following additions/exceptions: 67M with no known PMHX admitted with SOB found to be in rapid Aflutter and pulm edema. He responded well to lasix, put out >4L urine. Awaiting formal echo. He is still in rapid flutter despite max cardizem drip. Normotensive. He would benefit from amio at this point. Cont heparin drip. TNI elevated - will need cath eventually to evaluate if this is ischemic cardiomyopathy Hold off on BALBINA-I and BB for now Rest of care as noted above. Jermaine Metz MD [employer] Le[employer]r Critical Care Time: 30mins
[2018-01-19] MEDS ORDERED: Metoprolol 1 mg/ml Inj IVP ONE (15:51)
[2018-01-19] MEDS ORDERED: diltiaZEM IVPB 100mg in NS 100 ML IV PRN (16:42)
[2018-01-19] MEDS: Amiodarone 360 mg/D5W 200 ml 360 MG/200 ML BAG IV SCH (17:37)
--- NOTE | 2018-01-19 18:33 | US ---
HISTORY: Leg pain and swelling. Evaluate for DVT PHYSICIAN(S): Jose Lui MD. TECHNIQUE: Duplex sonography and color-flow Doppler with graded compression were used to evaluate the deep venous systems of both lower extremities. The exam is limited by body habitus and edema. The tibial veins are not well seen FINDINGS: The visualized deep venous systems of both lower extremities are sonographically normal and compressible. Normal wave forms and augmentation are seen. There is no sonographic evidence for deep venous thrombosis in the visualized segments of both lower extremities. IMPRESSION: No sonographic evidence for deep venous thrombosis in the visualized segments of both lower extremities. Limited study.
--- NOTE | 2018-01-20 01:36 | CON ---
DATE: 01/19/2018 REQUESTING PHYSICIAN: . REASON FOR CONSULTATION: Tachycardia, dyspnea. HISTORY: This is a 67-year-old man with no significant past medical history, who presents to Dr. Miles's office yesterday with complaints of dyspnea and some lightheadedness. He was noted to have evidence of significant peripheral edema and tachycardia. He is advised emergency room admission. In the emergency room, he was found to be in atrial flutter with 2:1 conduction and to be in congestive heart failure. He was treated with IV Lasix and IV Cardizem. He is seen now in the CCU. He denies any chest pain. He is unaware of any palpitations, but remains tachycardic. He states he has had no prior history of hypertension or diabetes. He has had no prior episodes of congestive heart failure. He states that there is a family history of premature heart disease. MEDICATIONS: Medications at home were none. He is currently on IV diltiazem, Ecotrin, IV heparin, Lasix 40 mg every 12 hours, Protonix 40 mg daily, Xopenex and Zithromax. ALLERGIES: NONE. SOCIAL HISTORY: He is , lives with his . He lives at home. 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 FAMILY HISTORY: Father from myocardial infarction at the age of 56. Mother from complications of Alzheimer's disease. REVIEW OF SYSTEMS: A 10-point review of systems is notable mainly for the problems as mentioned above. PHYSICAL EXAMINATION: GENERAL: He is an overweight middle-aged man. VITAL SIGNS: His blood pressure is 126/78 with a pulse of 140, respirations are 14. He is currently afebrile. HEENT: Normocephalic, atraumatic. NECK: Supple. No JVD appreciable. Neck is somewhat thick. CHEST: Diminished breath sounds at the bases. Scattered rhonchi heard. HEART: PMI displaced laterally with a rapid rhythm. Systolic murmur is present in the left sternal border. ABDOMEN: Soft, obese, nontender. Normoactive bowel sounds. EXTREMITIES: 3+ edema is present to the knees. SKIN: Warm and dry. PSYCHIATRIC: Normal mood and affect. NEUROLOGIC: No gross motor or sensory deficits noted. DIAGNOSTIC DATA: Electrocardiogram reveals atrial flutter with 2:1 conduction. Right bundle-branch block pattern is present. Chest x-ray reveals enlarged cardiac silhouette with bilateral congestive changes. His CT of the chest showed no evidence of pulmonary emboli. A right pleural effusion was present. IMPRESSION: 1. Decompensated congestive heart failure, acute, etiology uncertain. 2. Atrial flutter with 2:1 conduction. 3. Moderate obesity. RECOMMENDATIONS: An echocardiogram will be obtained to assess his left ventricular size and function. As his heart rate is not well controlled with diltiazem, initiation of amiodarone therapy at this time would be appropriate. If this is not adequate in controlling his rate, digoxin can be added as well. Eventual stress testing will be planned. Further recommendations will be made based upon his clinical course and results of the above evaluation. Thank you for this consultation and we will be happy to follow along as needed. Jere Hollins MD
[2018-01-20] MEDS: Amiodarone 360 mg/D5W 200 ml 360 MG/200 ML BAG IV SCH ×2 (06:54→17:00)
[2018-01-20] MEDS: Heparin25000 units/250ml 1/2NS 25,000 UNITS/250 ML BAG IV PRN ×2 (06:56→19:35)
--- NOTE | 2018-01-20 07:15 | CARD ---
APPROVED REPORT Date of service: 01/19/2018 EXAM: Two-dimensional and M-mode echocardiogram with Doppler and color Doppler. INDICATION Congestive Heart Failure 2D DIMENSIONS Left Atrium (2D)4.5 (1.6-4.0cm)IVSd1.5 (0.7-1.1cm) LVDd4.9 (3.9-5.9cm)PWd1.4 (0.7-1.1cm) FS (%) 16.9 % M-Mode DIMENSIONS Aortic Root3.60 (2.2-3.7cm)Aortic Cusp Exc.1.80 (1.5-2.0cm) Aortic Valve AoV Peak Hjmssgwh491.0cm/Michela Peak GR.8mmHg Mitral Valve E/A ratio0.0 TDI E/Lateral E'0.0E/Medial E'0.0 Pulmonary Valve PV Peak Toxhlpku78.8cm/sPV Peak Grad.1mmHg Tricuspid Valve TR Peak [id number] [id number] Peak Gr.18mmHg [id number] LEFT VENTRICLE The left ventricle is normal size. There is mild to moderate concentric left ventricular hypertrophy. The systolic function is moderately to severely impaired. There is global hypokinesis of the left ventricle. RIGHT VENTRICLE The right ventricle is normal size. ATRIA The left atrium is mildly dilated. The right atrium is mildly dilated. The interatrial septum is intact with no evidence for an atrial septal defect. AORTIC VALVE The aortic valve is normal in structure. No aortic regurgitation is present. There is no aortic valvular stenosis. MITRAL VALVE The mitral valve is normal in structure. Mitral regurgitation is trace. TRICUSPID VALVE The tricuspid valve is normal in structure. There is mild tricuspid regurgitation. PULMONIC VALVE The pulmonary valve is normal in structure. GREAT VESSELS The aortic root is normal in size. The IVC is normal in size and collapses >50% with inspiration. PERICARDIAL EFFUSION There is no pleural effusion. There is no pericardial effusion. <Conclusion> Biatrial enlargement. Normal LV size. MIld to moderate concentric LVH. Moderate to severely reduced LV systolic function. Overall EF -30%. Mild TR.
[2018-01-20 07:20] LABS: BASO # 0.02 K/mm3 (0.0-2.0); BASO % 0.2 % (0.0-3.0); EOS # 0.1 (0.0-0.7); EOS % 1.1 % (1.5-5.0); GRAN # 7.77 (1.4-6.5); GRAN % 71.9 % (50.0-68.0); HEMOGLOBIN 16.2 g/dL (14.0-18.0); LYMPH # 1.9 (1.2-3.4); LYMPH % 17.7 % (22.0-35.0); MEAN CELL VOLUME 92.1 fl (80.0-105.0); MEAN CORPUSCULAR HEMOGLOBIN 29.6 pg (25.0-35.0); MEAN CORPUSCULAR HGB CONC 32.1 g/dl (31.0-37.0); MEAN PLATELET VOLUME 10.3 fl (7.0-11.0); MONO % 9.1 % (1.0-6.0); RBC 5.47 10^6/uL (3.5-6.1); RED CELL DISTRIBUTION WIDTH 14.4 % (11.5-14.5); WHITE BLOOD COUNT 10.8 10^3/ul (4.5-11.0)
--- NOTE | 2018-01-20 07:21 | PN ---
DATE: 01/20/2018 SUBJECTIVE: The patient has no complaints of any chest pain. No shortness of breath. No headaches or dizziness. He states breathing is better. He continues to urinate significantly. PHYSICAL EXAMINATION: VITAL SIGNS: Temperature is 97.2, pulse of 138, blood pressure 109/72, respirations 20. GENERAL: The patient is lying in bed, flat, comfortable. HEENT: No oral lesion. Anicteric sclerae. Moist mucosa. NECK: No JVD, adenopathy, or thyromegaly. CARDIOVASCULAR: S1 and S2, regular. No murmurs, rubs, or gallops. LUNGS: Clear to auscultation bilaterally. No wheeze, rales, or rhonchi. ABDOMEN: Bowel sounds are positive. Soft, nontender and nondistended. EXTREMITIES: No cyanosis or clubbing. In the lower extremities, he has 1+ edema. ASSESSMENT: 1. Acute congestive heart failure probably secondary to systolic dysfunction. 2. Obesity with a body mass index of 44. 3. Atrial flutter. PLAN: The patient is currently in the ICU. He is comfortable. The patient is on amiodarone. The patient is going to be on Cardizem for the atrial flutter. The patient is on aspirin. He is on antibiotics. His blood cultures have been negative. He had a heart-healthy diet. He is being followed by Dr. Hollins. Steffen Sr MD
[2018-01-20 07:45] LABS: ALB/GLOB RATIO 1.3 (1.1-1.8); ALBUMIN 3.6 g/dL (3.0-4.8); ALT/SGPT 58 U/L (7-56); AST/SGOT 35 U/L (17-59); BLOOD UREA NITROGEN 16 mg/dL (7-21); CALCIUM 8.6 mg/dL (8.4-10.5); GFR NON-AFRICAN AMERICAN > 60
[2018-01-20] MEDS ORDERED: Digoxin 500 mcg/2ml (0.5 mg/2ml) Inj IV ONE (08:15)
--- NOTE | 2018-01-20 08:27 | PN ---
DATE: 01/20/2018 SUBJECTIVE: The patient is seen sitting in a chair in the CCU. He remains tachycardic with a normal heart rate of 140. He remains in atrial flutter. He diuresed over 7 L in the past 24 hours. He is comfortable at rest. He denies any chest pain or dyspnea. CURRENT MEDICATIONS: Include IV heparin, IV diltiazem, IV amiodarone, Lasix 40 mg daily, Xopenex and Zithromax. PHYSICAL EXAMINATION: GENERAL: He is an obese middle-aged man. VITAL SIGNS: His blood pressure is 132/80 with a pulse of 140 in atrial flutter, respirations are 16. He is afebrile. HEENT: No JVD. CHEST: Diminished breath sounds at the bases with bilateral scattered rales. HEART: PMI displaced laterally. Distant tones noted. Rhythm is rapid and regular. ABDOMEN: Soft, obese, nontender. Normoactive bowel sounds. EXTREMITIES: 2-3+ leg edema. DIAGNOSTIC DATA: Potassium 3.9, BUN and creatinine are 16 and 1. White count 10.8, hemoglobin and hematocrit 16.2 and 50.4 with a platelet count 239,000, PTT 114. His echocardiogram reveals biatrial enlargement with normal LV size, [id number] concentric LVH was present as well as moderately severe LV systolic dysfunction and mild tricuspid regurgitation. Overall ejection fraction appears to be 30%. IMPRESSION: 1. Decompensating congestive heart failure, acute, appears predominantly systolic, etiology to be determined. 2. Persistent atrial flutter with difficult to control rate 3. Morbid obesity. 4. Left ventricular hypertrophy. RECOMMENDATIONS: Anticoagulant therapy will be continued. IV diuretic therapy will be continued as well. Oral beta-alissa therapy and digoxin will be initiated in an attempt to control heart rate. IV Cardizem will be discontinued given his LV dysfunction and potential negative impact. Consideration will be given to a PORTER/cardioversion if his rate remains difficult to control. Eventual cardiac catheterization will be necessary for further evaluation. However, this will be deferred until he is euvolemic and more stable. We will continue to follow and make further recommendations as appropriate. Jere Hollins MD [facility] # [id number] CHANDNI
--- NOTE | 2018-01-20 08:41 | HP ---
CHIEF COMPLAINT AND HISTORY OF PRESENT ILLNESS: This is a 67-year-old male who has come into the hospital because he was having paroxysmal nocturnal dyspnea. He state that he was having shortness of breath with exertion. He was complaining of dizziness. These symptoms were happening for the last 3 to 4 days. He has not been following with any physician regularly. He states he has been having a fairly good health and so that is why he does not follow with any physicians. The patient was using more pillows in order to sleep better. He was complaining of lower leg swelling. He has no complaints of any chest pain. No shortness of breath. No headaches or dizziness. No nausea. No vomiting. No dysuria or frequency. No nocturia. The patient was found to have elevated heart rate in the 140s in the ER. He was placed on Cardizem. He had consultation that was requested for Cardiology. He was sent to the ICU for further management. He was given digoxin and Lasix in the ER. REVIEW OF SYSTEMS: All other review of symptoms are within normal limits except what was mentioned. SOCIAL HISTORY: He quit smoking 30 years ago. He denies drinking or drugs. He works at [employer] in the past. FAMILY HISTORY: Father of [place] at 64. Mother of Alzheimer's. ALLERGIES: NO KNOWN DRUG ALLERGIES. HOME MEDICATIONS: Have been reviewed on the JUL. PHYSICAL EXAMINATION: VITAL SIGNS: Temperature 97.5, pulse of 147, respirations 22, blood pressure 150/98, O2 saturation 97%. GENERAL: The patient lying in bed, uncomfortable, and in no acute distress. HEENT: Atraumatic and normocephalic. Anicteric sclerae. Moist mucosa. [place] conjunctivae. No oral lesions. NECK: No JVD, anterior and posterior adenopathy, thyromegaly or bruits. CARDIOVASCULAR: Regularly irregular. No murmurs, rubs or gallops. LUNGS: Clear to auscultation bilaterally. No wheezes, rales, or rhonchi. ABDOMEN: Bowel sounds are positive. Soft, nontender and nondistended. No hepatosplenomegaly. No rebound and no guarding EXTREMITIES: No cyanosis, clubbing, or edema. In the lower extremities there is 1+ edema. NEUROLOGIC: No facial asymmetry. Tongue is midline. No uvula deviation. Power is 5/5 upper extremity and lower extremity. Sensation intact in upper extremity and lower extremity. PSYCHIATRIC: He is awake, alert and oriented x3. No anxiety or depression. He has normal affect. GENITOURINARY: No CVA tenderness. VASCULAR: 2+ pulses in the carotid pulses and pedal pulses. SKIN: No erythema or nodules SPINE: Shows normal curvature. LABORATORY DATA: Have been reviewed. White count of 13.6 less than 0.4. Urine tox is positive for cannabinoids. UA was negative. His troponin initially was 0.24 and decreased to 0.15. His TSH is 3.3. DIAGNOSTIC DATA: His EKG shows atrial flutter with AV block at a rate of 176. There is left axis deviation. Chest x-ray done showed no active disease. He has CT of the chest done showed no evidence of PE. There was moderate sized right pleural effusion with compression atelectasis. Lower extremities Dopplers done showed no evidence of DVT. ASSESSMENT: 1. Acute congestive heart failure probably secondary to systolic dysfunction. 2. Lower extremity edema. 3. Obesity with a body mass index of 43. 4. Atrial flutter with rapid rate on Cardizem. PLAN: The patient is currently comfortable. He is on amiodarone. The patient was placed on Cardizem drip. He is being seen by Dr. Hollins. The patient is on aspirin daily. He is going to be on heparin for anticoagulation. The patient is on Lasix. He has been diuresing well. He had Mir diuresis yesterday. He continues to diurese significantly. I will decrease his Lasix to once a day in order to slow his diuresis. The patient was given high doses of Lasix yesterday. The patient has not been on the diuretics in the past. Patient's procalcitonin level was low. The patient was given antibiotics, Rocephin and Zithromax. The patient is on Protonix IV daily. I will discontinue the patient's Protonix. He has an echo that has been done, results are pending. The patient's blood cultures that are pending as well. He remains in the ICU. Steffen Sr MD
[2018-01-20] MEDS: Azithromycin 500MG/NS 250ml 500 MG/250 ML BAG IVPB SCH (09:01)
--- NOTE | 2018-01-20 12:43 | CP.CCUPN ---
<Dale Lockwood - Last Filed: 01/20/18 14:49> CCU Subjective - Physician Review Subjective (Free Text): \ Dale Lockwood DO PGY1 - Internal Medicine Technician'S Helper - ICU Progress Note Patient seen at bedside this morning; sitting in chair. No acute events overnight; HR did remain elevated ON. No complaints of shortness of breath, cough, chest pain, palpitations, abd pain , n/v/d/c, fevers, chills. No urinary complaints voiced. Remainder of 12 system ROS is negative at this time. CCU Objective - Vital Signs / Intake & Output Vital Signs (Last 4 hours): Vital Signs Temp Pulse Resp BP Pulse Ox 01/20/18 11:40 87 19 97 01/20/18 11:30 87 20 96 01/20/18 11:20 96 H 21 99 01/20/18 11:10 93 H 19 96 01/20/18 11:00 97.8 F 115 H 25 H 105/65 99 01/20/18 10:50 94 H 28 H 97 01/20/18 10:49 107 H 20 113/70 97 01/20/18 10:40 96 H 24 97 01/20/18 10:30 118 H 24 95 01/20/18 10:20 112 H 25 H 97 01/20/18 10:10 115 H 24 97 01/20/18 10:01 118 H 24 96/42 L 96 01/20/18 10:00 125 H 25 H 98 01/20/18 09:50 132 H 23 97 01/20/18 09:40 143 H 30 H 97 01/20/18 09:30 143 H 30 H 95 01/20/18 09:20 141 H 29 H 93 L 01/20/18 09:10 141 H 22 97 01/20/18 09:04 129/77 01/20/18 09:03 142 H 129/77 01/20/18 09:00 141 H 19 129/77 97 01/20/18 08:50 141 H 27 H 96 01/20/18 08:40 141 H 22 97 01/20/18 08:39 140 H 30 H Intake and Output (Last 8hrs): Intake & Output 01/19/18 01/20/18 01/20/18 22:59 06:59 14:59 Intake Total 2556 1528 20 Output Total 3147 1647 Balance -591 -119 20 Weight 142.882 kg Intake: IV 1596 1048 20 Right Hand 0 0 Zithromycin 500 250 amiodarone 664 332 heparin 432 216 Oral 960 480 Output: Urine 3147 1647 Urine, Voided 3147 1647 Stool 0 0 Emesis 0 0 - Physical Exam Head: Positive for: Atraumatic, Normocephalic Pupils: Positive for: PERRL Extroacular Muscles: Positive for: EOMI Conjunctiva: Positive for: Normal Ears: Positive for: NORMAL TM, Normal Canal. Negative for: Erythema Mouth: Positive for: Moist Mucous Membranes Pharnyx: Negative for: ERYTHEMA, EXUDATE, TONSILS ENLARGED Nose (External): Positive for: Atraumatic. Negative for: Abrasion, Contusion Nose (Internal): Positive for: Normal Inspection, No Active Bleeding. Negative for: Rhinorrhea, Septal Hematoma, Epistaxis Neck: Positive for: Normal Range of Motion. Negative for: Meningeal Signs, MIDLINE TENDERNESS, Paraspinal Tenderness, Lymphadenopathy, Trachea Midline Respiratory/Chest: Positive for: Decreased Breath Sounds (R lung marin), Rhonchi (RLL). Negative for: Respiratory Distress, Accessory Muscle Use, Wheezes, Retracting, Tachypneic Cardiovascular: Positive for: Normal S1, S2, Irregular Rhythm, Tachycardic Abdomen: Negative for: Tenderness, Distention, Peritoneal Signs, Rebound, Guarding Back: Positive for: Normal Inspection Upper Extremity: Positive for: Normal Inspection, Normal ROM, NORMAL PULSES, Capillary Refill < 2s. Negative for: Cyanosis, Edema, Deformity Lower Extremity: Positive for: Normal Inspection, Edema (3+ BL Pitting ), Normal ROM, Capillary Refill < 2 s. Negative for: Tenderness, Swelling, Deformity Neurological: Positive for: GCS=15, CN II-XII Intact, Speech Normal, Motor Func Grossly Intact, Gait Normal, Memory Normal Skin: Positive for: Warm, Dry, Normal Color. Negative for: Rashes Psychiatric: Positive for: Alert, Oriented x 3, Normal Insight, Normal Concentration - Medications Active Medications: Active Medications Generic Name Dose Route Start Last Admin Trade Name Freq PRN Reason Stop Dose Admin Aspirin 81 mg 01/19/18 10:00 01/20/18 09:00 Ecotrin PO 81 mg DAILY JACKIE Administration Carvedilol 12.5 mg 01/20/18 10:00 01/20/18 09:03 Coreg PO 12.5 mg BID JACKIE Administration Digoxin 0.125 mg 01/21/18 14:00 Digoxin PO 1400 JACKIE Famotidine 40 mg 01/20/18 22:00 Pepcid PO HS JACKIE Furosemide 40 mg 01/20/18 10:00 01/20/18 09:04 Lasix IV 40 mg BID JACKIE Administration Heparin Sodium/Sodium Chloride 25,000 units in 250 mls @ 18.087 mls/hr 20:21 01/20/18 08:48 Heparin 91719 Units/250ml 1/2 Normal Saline IV 9 units/kg/hr .[id number] PRN 13.023 mls/hr ADJUST RATE PER PROTOCOL Titration Protocol 12.5 UNITS/KG/HR Azithromycin 500 mg in 250 mls @ 167 mls/hr 01/19/18 10:00 01/20/18 09:01 Zithromax 500mg In Ns IVPB 167 mls/hr DAILY JACKIE Administration Protocol Amiodarone HCl/Dextrose 360 mg in 200 mls @ 16.667 mls/hr 01/19/18 17:00 04/27 06:54 Nexterone 360 Mg In D5w 200 Ml (Premix) IV 16.667 mls/hr .Q12H JACKIE Administration Protocol 0.5 MG/MIN Levalbuterol HCl 0.63 mg 01/19/18 01:04 Xopenex IH [id number] PRN Shortness of Breath - Patient Studies Lab Studies: Microbiology Studies 01/19/18 00:45 Blood Culture - Preliminary Blood NO GROWTH AFTER 24 HOURS 01/19/18 00:35 Blood Culture - Preliminary Blood NO GROWTH AFTER 24 HOURS Lab Studies 01/20/18 01/20/18 01/20/18 Range/Units 11:50 07:00 07:00 WBC (4.5-11.0) 10^3/ul RBC (3.5-6.1) 10^6/uL Hgb (14.0-18.0) g/dL Hct (42.0-52.0) % MCV (80.0-105.0) fl MCH (25.0-35.0) pg MCHC (31.0-37.0) g/dl RDW (11.5-14.5) % Plt Count (120.0-450.0) 10^3/uL MPV (7.0-11.0) fl Gran % (50.0-68.0) % Lymph % (Auto) (22.0-35.0) % Todd % (Auto) (1.0-6.0) % Eos % (Auto) (1.5-5.0) % Baso % (Auto) (0.0-3.0) % Gran # (1.4-6.5) Lymph # (Auto) (1.2-3.4) Todd # (Auto) (0.1-0.6) Eos # (Auto) (0.0-0.7) Baso # (Auto) (0.0-2.0) K/mm3 APTT 85.3 H 113.8 H* (25.1-36.5) Seconds Sodium 139 (132-148) mmol/L Potassium 3.9 (3.6-5.0) mmol/L Chloride 101 (98-107) mmol/L Carbon Dioxide 33 (21-33) mmol/L Anion Gap 9 L (10-20) BUN 16 (7-21) mg/dL Creatinine 1.0 (0.8-1.5) mg/dl Est GFR ( Amer) > 60 Est GFR (Non-Af Amer) > 60 Random Glucose 118 H (70-110) mg/dL Calcium 8.6 (8.4-10.5) mg/dL Phosphorus 3.6 (2.5-4.5) mg/dL Magnesium 1.9 (1.7-2.2) mg/dL Total Bilirubin 0.8 (0.2-1.3) mg/dL AST 35 (17-59) U/L ALT 58 H (7-56) U/L Alkaline Phosphatase 134 H D (38-126) U/L Total Protein 6.4 (5.8-8.3) g/dL Albumin 3.6 (3.0-4.8) g/dL Globulin 2.8 gm/dL Albumin/Globulin Ratio 1.3 (1.1-1.8) Procalcitonin (0.19-0.49) NG/ML 01/20/18 01/18/18 Range/Units 07:00 22:25 WBC 10.8 (4.5-11.0) 10^3/ul RBC 5.47 (3.5-6.1) 10^6/uL Hgb 16.2 (14.0-18.0) g/dL Hct 50.4 (42.0-52.0) % MCV 92.1 (80.0-105.0) fl MCH 29.6 (25.0-35.0) pg MCHC 32.1 (31.0-37.0) g/dl RDW 14.4 (11.5-14.5) % Plt Count 239 (120.0-450.0) 10^3/uL MPV 10.3 (7.0-11.0) fl Gran % 71.9 H (50.0-68.0) % Lymph % (Auto) 17.7 L (22.0-35.0) % Todd % (Auto) 9.1 H (1.0-6.0) % Eos % (Auto) 1.1 L (1.5-5.0) % Baso % (Auto) 0.2 (0.0-3.0) % Gran # 7.77 H (1.4-6.5) Lymph # (Auto) 1.9 (1.2-3.4) Todd # (Auto) 1.0 H (0.1-0.6) Eos # (Auto) 0.1 (0.0-0.7) Baso # (Auto) 0.02 (0.0-2.0) K/mm3 APTT (25.1-36.5) Seconds Sodium (132-148) mmol/L Potassium (3.6-5.0) mmol/L Chloride (98-107) mmol/L Carbon Dioxide (21-33) mmol/L Anion Gap (10-20) BUN (7-21) mg/dL Creatinine (0.8-1.5) mg/dl Est GFR ( Amer) Est GFR (Non-Af Amer) Random Glucose (70-110) mg/dL Calcium (8.4-10.5) mg/dL Phosphorus (2.5-4.5) mg/dL Magnesium (1.7-2.2) mg/dL Total Bilirubin (0.2-1.3) mg/dL AST (17-59) U/L ALT (7-56) U/L Alkaline Phosphatase (38-126) U/L Total Protein (5.8-8.3) g/dL Albumin (3.0-4.8) g/dL Globulin gm/dL Albumin/Globulin Ratio (1.1-1.8) Procalcitonin 0.07 L (0.19-0.49) NG/ML Laboratory Results - last 24 hr 01/18/18 01/20/18 01/20/18 22:25 07:00 07:00 WBC 10.8 RBC 5.47 Hgb 16.2 Hct 50.4 MCV 92.1 MCH 29.6 MCHC 32.1 RDW 14.4 Plt Count 239 MPV 10.3 Gran % 71.9 H Lymph % (Auto) 17.7 L Todd % (Auto) 9.1 H Eos % (Auto) 1.1 L Baso % (Auto) 0.2 Gran # 7.77 H Lymph # (Auto) 1.9 Todd # (Auto) 1.0 H Eos # (Auto) 0.1 Baso # (Auto) 0.02 APTT Sodium 139 Potassium 3.9 Chloride 101 Carbon Dioxide 33 Anion Gap 9 L BUN 16 Creatinine 1.0 Est GFR ( Amer) > 60 Est GFR (Non-Af Amer) > 60 Random Glucose 118 H Calcium 8.6 Phosphorus 3.6 Magnesium 1.9 Total Bilirubin 0.8 AST 35 ALT 58 H Alkaline Phosphatase 134 H D Total Protein 6.4 Albumin 3.6 Globulin 2.8 Albumin/Globulin Ratio 1.3 Procalcitonin 0.07 L 01/20/18 01/20/18 07:00 11:50 WBC RBC Hgb Hct MCV MCH MCHC RDW Plt Count MPV Gran % Lymph % (Auto) Todd % (Auto) Eos % (Auto) Baso % (Auto) Gran # Lymph # (Auto) Todd # (Auto) Eos # (Auto) Baso # (Auto) APTT 113.8 H* 85.3 H Sodium Potassium Chloride Carbon Dioxide Anion Gap BUN Creatinine Est GFR ( Amer) Est GFR (Non-Af Amer) Random Glucose Calcium Phosphorus Magnesium Total Bilirubin AST ALT Alkaline Phosphatase Total Protein Albumin Globulin Albumin/Globulin Ratio Procalcitonin Review of Systems - Review of Systems All systems: reviewed and no additional remarkable complaints except Review of Systems: As per HPI Critical Care Progress Note - Nutrition Nutrition: Nutrition Category Date Time Status Heart Healthy Diet [DIET] Diets 01/19/18 Lunch Active Assessment/Plan - Assessment and Plan (Free Text) Assessment: 67M found to be in acute new onset CHF exacerbation 2/2 Atrial Flutter w/ RVR. Neuro: AAO3 No FND Reorient as needed Cardio: Aflutter w/ RVR on adm Patient failed rate conversion w/ metoprolol IVP, Cardizem Gtt, and Amiodarone gtt Patient Loaded on Digoxin, Started Coreg PO, and Continued on Amio Gtt 0.5mg/min ; This has improved rate however patient is still in Aflutter Patient is HD stable; does not require synchornized electro cardioversion at this time; however will consider PORTER + Cardioversion if rate is difficult to maintain at discretion of cardiology Normotensive Maintain Map >65 Cardiology following Salt restriction Fluid 800ml restriction Strict IO Lasix 40 IVP BID Troponin leak - ML 2/2 demand ischemia C/w Heparin Gtt Pulm: Patient may have new onset COPD Wheezes not present on auscultation this AM C/w Xopenex PRN at this time C/w Azithromycin at this time Satting >95% on 4L NC GI: Heart healthy diet 2gm Na restriction 800ml Fluid restriction Nephro : 4.4L Urine output C/w Lasix 40 IVP BID Diuresing well - aim for euvolemia Mir Catheter in place Monitor IO Dispo: Patient rate has improved w/ therapy mentioned above, he has been hemodynamically stable otherwise, and is diuresing well w/ good urine output. Patient does not require further ICUmanagement Patient was seen discussed and examined w/ attending physician Dr. Lashay Lockwood DO PGY1 - Internal Medicine Technician'S Helper - Pager [phone] - Date & Time Date: 01/20/18 Time: 15:32 <Jermaine Metz - Last Filed: 01/20/18 16:03> CCU Objective - Vital Signs / Intake & Output Vital Signs (Last 4 hours): Vital Signs Pulse Resp BP Pulse Ox 01/20/18 15:50 86 22 96 01/20/18 15:40 79 23 99 01/20/18 15:30 89 22 100 01/20/18 15:20 91 H 23 96 01/20/18 15:10 104 H 28 H 95 01/20/18 15:00 85 23 123/68 97 01/20/18 14:50 92 H 22 97 01/20/18 14:40 91 H 23 98 01/20/18 14:30 95 H 25 H 98 01/20/18 14:20 93 H 28 H 98 01/20/18 14:10 92 H 23 98 01/20/18 14:00 91 H 27 H 109/55 L 98 01/20/18 13:50 92 H 28 H 100 01/20/18 13:40 95 H 25 H 97 01/20/18 13:30 95 H 15 93 L 01/20/18 13:20 94 H 19 99 01/20/18 13:10 94 H 22 97 01/20/18 13:01 91 H 29 H 109/77 97 01/20/18 13:00 91 H 24 97 01/20/18 12:50 89 20 95 01/20/18 12:40 93 H 20 95 01/20/18 12:30 90 28 H 98 01/20/18 12:20 97 H 34 H 97 01/20/18 12:10 94 H 26 H 98 Intake and Output (Last 8hrs): Intake & Output 01/20/18 01/20/18 01/20/18 06:59 14:59 22:59 Intake Total 1528 20 Output Total 1647 Balance -119 20 Weight 315 lb Intake: IV 1048 20 Right Hand 0 Zithromycin 250 amiodarone 332 heparin 216 Oral 480 Output: Urine 1647 Urine, Voided 1647 Stool 0 Emesis 0 - Medications Active Medications: Active Medications Generic Name Dose Route Start Last Admin Trade Name Anupama PRN Reason Stop Dose Admin Aspirin 81 mg 01/19/18 10:00 01/20/18 09:00 Ecotrin PO 81 mg DAILY JACKIE Administration Carvedilol 12.5 mg 01/20/18 10:00 01/20/18 09:03 Coreg PO 12.5 mg BID JACKIE Administration Digoxin 0.125 mg 01/21/18 14:00 Digoxin PO 1400 JACKIE Famotidine 40 mg 01/20/18 22:00 Pepcid PO HS JACKIE Furosemide 40 mg 01/20/18 10:00 01/20/18 09:04 Lasix IV 40 mg BID JACKIE Administration Heparin Sodium/Sodium Chloride 25,000 units in 250 mls @ 18.087 mls/hr 20:21 01/20/18 08:48 Heparin 63266 Units/250ml 1/2 Normal Saline IV 9 units/kg/hr .[id number] PRN 13.023 mls/hr ADJUST RATE PER PROTOCOL Titration Protocol 12.5 UNITS/KG/HR Azithromycin 500 mg in 250 mls @ 167 mls/hr 01/19/18 10:00 01/20/18 09:01 Zithromax 500mg In Ns IVPB 167 mls/hr DAILY JACKIE Administration Protocol Amiodarone HCl/Dextrose 360 mg in 200 mls @ 16.667 mls/hr 01/19/18 17:00 04/27 06:54 Nexterone 360 Mg In D5w 200 Ml (Premix) IV 16.667 mls/hr .Q12H JACKIE Administration Protocol 0.5 MG/MIN Levalbuterol HCl 0.63 mg 01/19/18 01:04 Xopenex IH [id number] PRN Shortness of Breath - Patient Studies Lab Studies: Microbiology Studies 01/19/18 00:45 Blood Culture - Preliminary Blood NO GROWTH AFTER 24 HOURS 01/19/18 00:35 Blood Culture - Preliminary Blood NO GROWTH AFTER 24 HOURS Lab Studies 01/20/18 01/20/18 01/20/18 Range/Units 11:50 07:00 07:00 WBC (4.5-11.0) 10^3/ul RBC (3.5-6.1) 10^6/uL Hgb (14.0-18.0) g/dL Hct (42.0-52.0) % MCV (80.0-105.0) fl MCH (25.0-35.0) pg MCHC (31.0-37.0) g/dl RDW (11.5-14.5) % Plt Count (120.0-450.0) 10^3/uL MPV (7.0-11.0) fl Gran % (50.0-68.0) % Lymph % (Auto) (22.0-35.0) % Todd % (Auto) (1.0-6.0) % Eos % (Auto) (1.5-5.0) % Baso % (Auto) (0.0-3.0) % Gran # (1.4-6.5) Lymph # (Auto) (1.2-3.4) Todd # (Auto) (0.1-0.6) Eos # (Auto) (0.0-0.7) Baso # (Auto) (0.0-2.0) K/mm3 APTT 85.3 H 113.8 H* (25.1-36.5) Seconds Sodium 139 (132-148) mmol/L Potassium 3.9 (3.6-5.0) mmol/L Chloride 101 (98-107) mmol/L Carbon Dioxide 33 (21-33) mmol/L Anion Gap 9 L (10-20) BUN 16 (7-21) mg/dL Creatinine 1.0 (0.8-1.5) mg/dl Est GFR ( Amer) > 60 Est GFR (Non-Af Amer) > 60 Random Glucose 118 H (70-110) mg/dL Calcium 8.6 (8.4-10.5) mg/dL Phosphorus 3.6 (2.5-4.5) mg/dL Magnesium 1.9 (1.7-2.2) mg/dL Total Bilirubin 0.8 (0.2-1.3) mg/dL AST 35 (17-59) U/L ALT 58 H (7-56) U/L Alkaline Phosphatase 134 H D (38-126) U/L Total Protein 6.4 (5.8-8.3) g/dL Albumin 3.6 (3.0-4.8) g/dL Globulin 2.8 gm/dL Albumin/Globulin Ratio 1.3 (1.1-1.8) 01/20/18 Range/Units 07:00 WBC 10.8 (4.5-11.0) 10^3/ul RBC 5.47 (3.5-6.1) 10^6/uL Hgb 16.2 (14.0-18.0) g/dL Hct 50.4 (42.0-52.0) % MCV 92.1 (80.0-105.0) fl MCH 29.6 (25.0-35.0) pg MCHC 32.1 (31.0-37.0) g/dl RDW 14.4 (11.5-14.5) % Plt Count 239 (120.0-450.0) 10^3/uL MPV 10.3 (7.0-11.0) fl Gran % 71.9 H (50.0-68.0) % Lymph % (Auto) 17.7 L (22.0-35.0) % Todd % (Auto) 9.1 H (1.0-6.0) % Eos % (Auto) 1.1 L (1.5-5.0) % Baso % (Auto) 0.2 (0.0-3.0) % Gran # 7.77 H (1.4-6.5) Lymph # (Auto) 1.9 (1.2-3.4) Todd # (Auto) 1.0 H (0.1-0.6) Eos # (Auto) 0.1 (0.0-0.7) Baso # (Auto) 0.02 (0.0-2.0) K/mm3 APTT (25.1-36.5) Seconds Sodium (132-148) mmol/L Potassium (3.6-5.0) mmol/L Chloride (98-107) mmol/L Carbon Dioxide (21-33) mmol/L Anion Gap (10-20) BUN (7-21) mg/dL Creatinine (0.8-1.5) mg/dl Est GFR ( Amer) Est GFR (Non-Af Amer) Random Glucose (70-110) mg/dL Calcium (8.4-10.5) mg/dL Phosphorus (2.5-4.5) mg/dL Magnesium (1.7-2.2) mg/dL Total Bilirubin (0.2-1.3) mg/dL AST (17-59) U/L ALT (7-56) U/L Alkaline Phosphatase (38-126) U/L Total Protein (5.8-8.3) g/dL Albumin (3.0-4.8) g/dL Globulin gm/dL Albumin/Globulin Ratio (1.1-1.8) Laboratory Results - last 24 hr 01/20/18 01/20/18 01/20/18 07:00 07:00 07:00 WBC 10.8 RBC 5.47 Hgb 16.2 Hct 50.4 MCV 92.1 MCH 29.6 MCHC 32.1 RDW 14.4 Plt Count 239 MPV 10.3 Gran % 71.9 H Lymph % (Auto) 17.7 L Todd % (Auto) 9.1 H Eos % (Auto) 1.1 L Baso % (Auto) 0.2 Gran # 7.77 H Lymph # (Auto) 1.9 Todd # (Auto) 1.0 H Eos # (Auto) 0.1 Baso # (Auto) 0.02 APTT 113.8 H* Sodium 139 Potassium 3.9 Chloride 101 Carbon Dioxide 33 Anion Gap 9 L BUN 16 Creatinine 1.0 Est GFR ( Amer) > 60 Est GFR (Non-Af Amer) > 60 Random Glucose 118 H Calcium 8.6 Phosphorus 3.6 Magnesium 1.9 Total Bilirubin 0.8 AST 35 ALT 58 H Alkaline Phosphatase 134 H D Total Protein 6.4 Albumin 3.6 Globulin 2.8 Albumin/Globulin Ratio 1.3 01/20/18 11:50 WBC RBC Hgb Hct MCV MCH MCHC RDW Plt Count MPV Gran % Lymph % (Auto) Todd % (Auto) Eos % (Auto) Baso % (Auto) Gran # Lymph # (Auto) Todd # (Auto) Eos # (Auto) Baso # (Auto) APTT 85.3 H Sodium Potassium Chloride Carbon Dioxide Anion Gap BUN Creatinine Est GFR ( Amer) Est GFR (Non-Af Amer) Random Glucose Calcium Phosphorus Magnesium Total Bilirubin AST ALT Alkaline Phosphatase Total Protein Albumin Globulin Albumin/Globulin Ratio Critical Care Progress Note - Nutrition Nutrition: Nutrition Category Date Time Status Heart Healthy Diet [DIET] Diets 01/19/18 Lunch Active Addendum Addendum: 01/20/18 16:03 ICU Attending Addendum: Patient seen and examined. Case reviewed on round with housestaff. Agree with resident note above with the following additions/exceptions: 67M with no known PMHX admitted with SOB found to be in rapid Aflutter and pulm edema. Newly dx CHF EF 30% He responds well to lasix can likely switch to daily dosing instead of BID Was in rapid flutter yesterdy. Responded to amio drip, dig and coreg. Rate controlled now. Cont hep drip TNI elevated - will need cath eventually to evaluate if this is ischemic cardiomyopathy Not started on BALBINA yet, await cards rec Stable to transfer out of ICU Rest of care as noted above. Jermaine Metz MD [facility] Critical Care Time: 30mins
[2018-01-21] MEDS: Amiodarone 360 mg/D5W 200 ml 360 MG/200 ML BAG IV SCH ×2 (06:13→17:48)
[2018-01-21 06:56] LABS: BASO # 0.02 K/mm3 (0.0-2.0); BASO % 0.2 % (0.0-3.0); EOS # 0.2 (0.0-0.7); EOS % 1.5 % (1.5-5.0); GRAN # 7.08 (1.4-6.5); HEMOGLOBIN 15.8 g/dL (14.0-18.0); LYMPH # 1.7 (1.2-3.4); LYMPH % 17.6 % (22.0-35.0); MEAN CELL VOLUME 91.6 fl (80.0-105.0); MEAN CORPUSCULAR HEMOGLOBIN 29.4 pg (25.0-35.0); MEAN CORPUSCULAR HGB CONC 32.1 g/dl (31.0-37.0); MEAN PLATELET VOLUME 10.3 fl (7.0-11.0); MONO # 0.9 (0.1-0.6); MONO % 8.7 % (1.0-6.0); RBC 5.37 10^6/uL (3.5-6.1); RED CELL DISTRIBUTION WIDTH 14.5 % (11.5-14.5); WHITE BLOOD COUNT 9.8 10^3/ul (4.5-11.0)
[2018-01-21 07:16] LABS: ALB/GLOB RATIO 1.3 (1.1-1.8); ALBUMIN 3.8 g/dL (3.0-4.8); ALT/SGPT 47 U/L (7-56); AST/SGOT 30 U/L (17-59); BLOOD UREA NITROGEN 19 mg/dL (7-21); CALCIUM 8.9 mg/dL (8.4-10.5); GFR NON-AFRICAN AMERICAN > 60
--- NOTE | 2018-01-21 08:04 | CP.PCM.PN ---
Subjective - Date & Time of Evaluation Date of Evaluation: 01/21/18 Time of Evaluation: 07:00 - Subjective Subjective: Stable in CCU on IV amio. No CP or SOB V/S noted. A. Flut. with mod VR PE: Lungs: clear Cor: S1S2 Abd.: soft Ext.: ++ edema Neuro.: alert I/O = 2070/2850 Labs noted: Dig. = 0.7 BC X2 NG at 48 hrs. Echo noted: Mod. LVD, EF ~ 30%, Mild TR Objective - Vital Signs/Intake and Output Vital Signs (last 24 hours): Temp Pulse Resp BP Pulse Ox 98.2 F 130 H 24 128/83 92 L 01/21/18 04:00 01/21/18 06:00 01/21/18 02:30 01/21/18 02:31 01/21/18 02:20 Intake and Output: 01/21/18 01/21/18 06:59 18:59 Intake Total 540 Output Total 1850 Balance -1310 - Medications Medications: Current Medications Aspirin (Ecotrin) 81 mg PO DAILY [facility] Last Admin: 01/20/18 09:00 Dose: 81 mg Carvedilol (Coreg) 12.5 mg PO BID [facility] Last Admin: 01/20/18 19:33 Dose: 12.5 mg Digoxin (Digoxin) 0.125 mg PO 1400 JACKIE Famotidine (Pepcid) 40 mg PO HS [facility] Last Admin: 01/20/18 22:12 Dose: 40 mg Furosemide (Lasix) 40 mg IV BID [facility] Last Admin: 01/20/18 19:00 Dose: 40 mg Heparin Sodium/Sodium Chloride (Heparin 78518 Units/250ml 1/2 Normal Saline) 25 ,000 units in 250 mls @ 18.087 mls/hr IV .[id number] PRN; Protocol; 12.5 UNITS/KG/ HR PRN Reason: ADJUST RATE PER PROTOCOL Last Admin: 01/20/18 19:35 Dose: 7 units/kg/hr, 10.129 mls/hr Azithromycin (Zithromax 500mg In Ns) 500 mg in 250 mls @ 167 mls/hr IVPB DAILY [facility] PRN Reason: Protocol Last Admin: 01/20/18 09:01 Dose: 167 mls/hr Amiodarone HCl/Dextrose (Nexterone 360 Mg In D5w 200 Ml (Premix)) 360 mg in 200 mls @ 16.667 mls/hr IV .Q12H JACKIE; 0.5 MG/MIN PRN Reason: Protocol Last Admin: 01/21/18 06:13 Dose: 16.667 mls/hr Levalbuterol HCl (Xopenex) 0.63 mg IH [id number] PRN PRN Reason: Shortness of Breath Lisinopril (Zestril) 5 mg PO DAILY JACKIE - Labs Labs: 01/21/18 06:00 01/21/18 06:00 PT 13.2 SECONDS (9.4-12.5) H 01/18/18 17:15 INR 1.15 01/18/18 17:15 APTT 36.9 Seconds (25.1-36.5) H 01/21/18 06:00 Assessment and Plan - Assessment and Plan (Free Text) Assessment: Edema/Dyspnea/CHF Pl. effusions A. Flutter with RVR Echo: Mod/Sev LVD, EF ~ 30%, Mild TR Obesity FH of CAD/MD Plan: Continue IV amiod x 24 hrs more > PO Continue carvedilol and digoxin Adjust heparin Continue IV lasix, neg. balance Add lisinopril 5/day. Titrate. PO KCL Monitor labs daily OOB as samm. Tel bed. Plan elective cardiac cath for next week. Date to be determined.
[2018-01-21] MEDS: Potassium Chloride 20 mEq ER Tab PO SCH (08:52)
[2018-01-21] MEDS: POLYETHYLENE GLYCOL 3350 17 GM/Dose PACKET PO SCH ×2 (08:59→17:48)
[2018-01-21] MEDS: Azithromycin 500MG/NS 250ml 500 MG/250 ML BAG IVPB SCH (08:59)
--- NOTE | 2018-01-21 10:33 | PN ---
DATE: 01/21/2018 SUBJECTIVE: The patient has no complaints of any chest pain, no shortness of breath, no headaches. He says his breathing is better. PHYSICAL EXAMINATION: VITAL SIGNS: Temperature is 98.2, pulse of 130, blood pressure 120/83, respirations 24. GENERAL: The patient is lying in bed, flat, comfortable. HEENT: No oral lesion. Anicteric sclerae. Moist mucosa. NECK: No JVD, adenopathy, or thyromegaly. CARDIOVASCULAR: S1 and S2, regular. No murmurs, rubs, or gallops. LUNGS: Clear to auscultation bilaterally. No wheeze, rales, or rhonchi. ABDOMEN: Bowel sounds are positive, soft, nontender and nondistended. EXTREMITIES: Lower extremities, 1+ edema. LABORATORY DATA: Urine output shows urine of 2850. ASSESSMENT: 1. Acute congestive heart failure secondary to systolic dysfunction with an ejection fraction of 30%. 2. Obesity with a body mass index of 44. 3. Atrial flutter, uncontrolled. 4. Lower extremity edema. PLAN: The patient is currently on amiodarone. The patient is on carvedilol. These will be continued. He is on digoxin for his atrial fibrillation. The patient is on aspirin daily. He is on anticoagulation with heparin. The patient is on Lasix twice a day. 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 The patient is on oxygen. He is going to continue with heart-healthy diet. The patient will most likely need a cardiac cath. We will await input from Dr. Goncalves regarding the cath. We will probably need to change to oral anticoagulation. Steffen Sr MD
[2018-01-21] MEDS: Digoxin 125 mcg (0.125 mg) Tab PO SCH (13:05)
[2018-01-21] MEDS: Heparin25000 units/250ml 1/2NS 25,000 UNITS/250 ML BAG IV PRN (20:34)
[2018-01-22 06:39] LABS: BASO # 0.02 K/mm3 (0.0-2.0); BASO % 0.3 % (0.0-3.0); EOS # 0.2 (0.0-0.7); EOS % 2.2 % (1.5-5.0); GRAN # 5.25 (1.4-6.5); GRAN % 66.7 % (50.0-68.0); HEMOGLOBIN 15.2 g/dL (14.0-18.0); LYMPH # 1.7 (1.2-3.4); LYMPH % 21.4 % (22.0-35.0); MEAN CELL VOLUME 91.8 fl (80.0-105.0); MEAN CORPUSCULAR HEMOGLOBIN 29.1 pg (25.0-35.0); MEAN CORPUSCULAR HGB CONC 31.7 g/dl (31.0-37.0); MEAN PLATELET VOLUME 10.4 fl (7.0-11.0); MONO # 0.7 (0.1-0.6); MONO % 9.4 % (1.0-6.0); RBC 5.23 10^6/uL (3.5-6.1); RED CELL DISTRIBUTION WIDTH 14.4 % (11.5-14.5); WHITE BLOOD COUNT 7.9 10^3/ul (4.5-11.0)
[2018-01-22 06:47] LABS: BLOOD UREA NITROGEN 21 mg/dL (7-21); CALCIUM 8.8 mg/dL (8.4-10.5); GFR NON-AFRICAN AMERICAN > 60
--- NOTE | 2018-01-22 08:05 | CP.PCM.PN ---
Subjective - Date & Time of Evaluation Date of Evaluation: 01/22/18 Time of Evaluation: 07:00 - Subjective Subjective: Stable in CCU on IV amio. No CP or SOB. He feels better. V/S noted. A. Flut. with mod VR 90 - 130 range PE: Lungs: clear Cor: S1S2 Abd.: soft Ext.: ++ edema Neuro.: alert I/O = 2436/2075 Labs noted: PTT = 42.3, K+= 3.8 BC X2 NG at 3 days Echo noted: Mod. LVD, EF ~ 30%, Mild TR Objective - Vital Signs/Intake and Output Vital Signs (last 24 hours): Temp Pulse Resp BP Pulse Ox 98 F 117 H 25 H 131/64 91 L 01/22/18 04:00 01/22/18 06:00 01/22/18 06:00 01/22/18 05:00 01/22/18 04:00 Intake and Output: 01/22/18 01/22/18 06:59 18:59 Intake Total 472 Output Total 1225 Balance -753 - Medications Medications: Current Medications Amiodarone HCl (Cordarone) 400 mg PO BID JACKIE Aspirin (Ecotrin) 81 mg PO DAILY [facility] Last Admin: 01/21/18 08:59 Dose: 81 mg Carvedilol (Coreg) 25 mg PO BID JACKIE Digoxin (Digoxin) 0.125 mg PO 1400 [facility] Last Admin: 01/21/18 13:05 Dose: 0.125 mg Enoxaparin Sodium (Lovenox) 140 mg SC Q12H JACKIE PRN Reason: Protocol Famotidine (Pepcid) 40 mg PO HS [facility] Last Admin: 01/21/18 22:02 Dose: 40 mg Furosemide (Lasix) 40 mg IV BID [facility] Last Admin: 01/21/18 17:47 Dose: 40 mg Azithromycin (Zithromax 500mg In Ns) 500 mg in 250 mls @ 167 mls/hr IVPB DAILY JACKIE PRN Reason: Protocol Last Admin: 01/21/18 08:59 Dose: 167 mls/hr Amiodarone HCl/Dextrose (Nexterone 360 Mg In D5w 200 Ml (Premix)) 360 mg in 200 mls @ 16.667 mls/hr IV .Q12H JACKIE; 0.5 MG/MIN PRN Reason: Protocol Last Admin: 01/21/18 17:48 Dose: 16.667 mls/hr Levalbuterol HCl (Xopenex) 0.63 mg IH [id number] PRN PRN Reason: Shortness of Breath Lisinopril (Zestril) 5 mg PO DAILY [facility] Last Admin: 01/21/18 08:00 Dose: 5 mg Polyethylene Glycol (Miralax) 17 gm PO BID [facility] Last Admin: 01/21/18 17:48 Dose: 17 gm Potassium Chloride (K-Dur 20 Meq Er Tab) 20 meq PO BRK [facility] Last Admin: 01/21/18 08:52 Dose: 20 meq - Labs Labs: 01/22/18 05:50 01/22/18 05:50 PT 13.2 SECONDS (9.4-12.5) H 01/18/18 17:15 INR 1.15 01/18/18 17:15 APTT 42.3 Seconds (25.1-36.5) H 01/22/18 05:50 Assessment and Plan - Assessment and Plan (Free Text) Assessment: Edema/Dyspnea/CHF Pl. effusions A. Flutter with RVR Echo: Mod/Sev LVD, EF ~ 30%, Mild TR Obesity FH of CAD/VT Plan: IV amiod > PO today Increase carvedilol to 25 BID. Continue digoxin Switch heparin > Lovenox Continue IV lasix, neg. balance Continue lisinopril 5/day. Titrate. PO KCL Monitor labs daily OOB as samm. Tel bed. Plan elective D/C CV on Thursday. Plan elective cardiac cath for next week. Date to be determined. Probably Thursday.
[2018-01-22] MEDS: Potassium Chloride 20 mEq ER Tab PO SCH (08:10)
--- NOTE | 2018-01-22 08:40 | PN ---
DATE: 01/22/2018 SUBJECTIVE: The patient has no complaints of any chest pain. No shortness of breath. No headaches. He says he feels well. His breathing has improved. PHYSICAL EXAMINATION: VITAL SIGNS: Temperature is 98, pulse of 117, blood pressure 131/64, respirations 25. GENERAL: The patient is lying in bed, flat, comfortable. HEENT: No oral lesion. Anicteric sclerae. Moist mucosa. NECK: No JVD, adenopathy, or thyromegaly. CARDIOVASCULAR: S1 and S2, regular. No murmurs, rubs, or gallops. LUNGS: Clear to auscultation bilaterally. No wheeze, rales, or rhonchi. ABDOMEN: Bowel sounds are positive, soft, nontender and nondistended. EXTREMITIES: No cyanosis, clubbing. Lower extremities, 1+ edema. ASSESSMENT: 1. Acute congestive heart failure secondary to systolic dysfunction with ejection fraction of 30%. 2. Obesity with a body mass index of 44. 3. Lower extremity edema. 4. Atrial flutter, uncontrolled. PLAN: The patient is currently on amiodarone. He is going to continue with carvedilol and digoxin. The patient is receiving anticoagulation with heparin. He is on Lasix twice a day. The patient is on MiraLax for constipation. He is also on Zestril for afterload reduction. The patient is on a heart-healthy diet. He continues to diurese well. The patient had 2075 mL of urine output. He will most likely need a cardiac cath, which will be arranged by Dr. Goncalves. He has blood cultures that have been negative. Medications are being titrated to help control the patient's atrial flutter. Steffen Sr MD
[2018-01-22] MEDS ORDERED: Enoxaparin 120 mg Syringe SC SCH (09:00)
[2018-01-22] MEDS: POLYETHYLENE GLYCOL 3350 17 GM/Dose PACKET PO SCH ×2 (09:15→17:09)
[2018-01-22] MEDS: Enoxaparin 150 mg Syringe SC SCH ×2 (09:15→23:18)
[2018-01-22] MEDS: Azithromycin 500MG/NS 250ml 500 MG/250 ML BAG IVPB SCH (09:16)
[2018-01-22] MEDS: Digoxin 125 mcg (0.125 mg) Tab PO SCH (13:30)
[2018-01-23 06:22] LABS: BLOOD UREA NITROGEN 23 mg/dL (7-21); CALCIUM 8.9 mg/dL (8.4-10.5); GFR NON-AFRICAN AMERICAN > 60
--- NOTE | 2018-01-23 07:30 | CP.PCM.PN ---
Subjective - Date & Time of Evaluation Date of Evaluation: 01/23/18 Time of Evaluation: 07:00 - Subjective Subjective: Stable in CCU. No CP or SOB. He feels better. V/S noted. A. Flut. with mod VR 78 - 118 range PE: Lungs: clear Cor: irreg., S1S2 Abd.: soft Ext.: + edema Neuro.: alert I/O = 970/1200 recorded Labs noted: K+= 4.0 BC X2 NG at 3 days Echo noted: Mod. LVD, EF ~ 30%, Mild TR Objective - Vital Signs/Intake and Output Vital Signs (last 24 hours): Temp Pulse Resp BP Pulse Ox 97.4 F L 104 H 21 97/39 L 96 01/23/18 00:00 01/23/18 04:00 01/23/18 04:00 01/23/18 04:00 01/23/18 04:00 - Medications Medications: Current Medications Amiodarone HCl (Cordarone) 400 mg PO BID [facility] Last Admin: 01/22/18 17:05 Dose: 400 mg Aspirin (Ecotrin) 81 mg PO DAILY [facility] Last Admin: 01/22/18 09:11 Dose: 81 mg Carvedilol (Coreg) 25 mg PO BID [facility] Last Admin: 01/22/18 17:08 Dose: 25 mg Digoxin (Digoxin) 0.125 mg PO 1400 [facility] Last Admin: 01/22/18 13:30 Dose: 0.125 mg Enoxaparin Sodium (Lovenox) 140 mg SC Q12 [facility] Last Admin: 01/22/18 23:18 Dose: 140 mg Famotidine (Pepcid) 40 mg PO HS [facility] Last Admin: 01/22/18 23:18 Dose: 40 mg Furosemide (Lasix) 40 mg IV BID [facility] Last Admin: 01/22/18 17:08 Dose: 40 mg Levalbuterol HCl (Xopenex) 0.63 mg IH [id number] PRN PRN Reason: Shortness of Breath Lisinopril (Zestril) 5 mg PO DAILY [facility] Last Admin: 01/22/18 09:13 Dose: 5 mg Polyethylene Glycol (Miralax) 17 gm PO BID [facility] Last Admin: 01/22/18 17:09 Dose: Not Given Potassium Chloride (K-Dur 20 Meq Er Tab) 20 meq PO BRK [facility] Last Admin: 01/22/18 08:10 Dose: 20 meq - Labs Labs: 01/22/18 05:50 01/23/18 05:15 PT 13.2 SECONDS (9.4-12.5) H 01/18/18 17:15 INR 1.15 01/18/18 17:15 APTT 45.2 Seconds (25.1-36.5) H 01/22/18 15:15 Assessment and Plan - Assessment and Plan (Free Text) Assessment: Edema/Dyspnea/CHF Pl. effusions A. Flutter with RVR Echo: Mod/Sev LVD, EF ~ 30%, Mild TR Obesity FH of CAD/[place] Plan: Continue digoxin, Coreg, PO amio., Lovenox sq Continue IV lasix, neg. balance Check Mg++ level Continue lisinopril 5/day. Titrate. PO KCL Monitor labs daily OOB as samm. Tel bed. Plan elective D/C CV on Thursday. Plan elective cardiac cath for Thursday.
[2018-01-23] MEDS: Potassium Chloride 20 mEq ER Tab PO SCH (08:16)
[2018-01-23] MEDS: Enoxaparin 150 mg Syringe SC SCH ×2 (09:11→22:06)
[2018-01-23] MEDS: POLYETHYLENE GLYCOL 3350 17 GM/Dose PACKET PO SCH ×2 (09:12→17:26)
--- NOTE | 2018-01-23 12:29 | CP.PCM.PN ---
<Gurinder Davidson - Last Filed: 01/23/18 12:23> Subjective - Date & Time of Evaluation Date of Evaluation: 01/23/18 Time of Evaluation: 12:23 - Subjective Subjective: Patient seen and examined at bedside. Patient doing well with no complaints at this time. Denies chest pain, shortness of breath, nausea, vomiting, diarrhea, fever, chills. Objective - Vital Signs/Intake and Output Vital Signs (last 24 hours): Temp Pulse Resp BP Pulse Ox 97.4 F L 121 H 31 H 106/79 98 01/23/18 00:00 01/23/18 10:00 01/23/18 08:00 01/23/18 09:11 01/23/18 06:00 Intake and Output: 01/23/18 01/23/18 06:59 18:59 Intake Total 600 Output Total 1025 Balance -425 - Medications Medications: Current Medications Amiodarone HCl (Cordarone) 400 mg PO BID [facility] Last Admin: 01/23/18 09:09 Dose: 400 mg Aspirin (Ecotrin) 81 mg PO DAILY [facility] Last Admin: 01/23/18 09:10 Dose: 81 mg Carvedilol (Coreg) 25 mg PO BID [facility] Last Admin: 01/23/18 09:10 Dose: 25 mg Digoxin (Digoxin) 0.125 mg PO 1400 [facility] Last Admin: 01/22/18 13:30 Dose: 0.125 mg Enoxaparin Sodium (Lovenox) 140 mg SC Q12 [facility] Last Admin: 01/23/18 09:11 Dose: 140 mg Famotidine (Pepcid) 40 mg PO HS [facility] Last Admin: 01/22/18 23:18 Dose: 40 mg Furosemide (Lasix) 40 mg IV BID [facility] Last Admin: 01/23/18 09:11 Dose: 40 mg Levalbuterol HCl (Xopenex) 0.63 mg IH [id number] PRN PRN Reason: Shortness of Breath Lisinopril (Zestril) 5 mg PO DAILY [facility] Last Admin: 01/23/18 09:10 Dose: 5 mg Polyethylene Glycol (Miralax) 17 gm PO BID [facility] Last Admin: 01/23/18 09:12 Dose: Not Given Potassium Chloride (K-Dur 20 Meq Er Tab) 20 meq PO BRK [facility] Last Admin: 01/23/18 08:16 Dose: 20 meq - Labs Labs: 01/22/18 05:50 01/23/18 05:15 PT 13.2 SECONDS (9.4-12.5) H 01/18/18 17:15 INR 1.15 01/18/18 17:15 APTT 45.2 Seconds (25.1-36.5) H 01/22/18 15:15 - Constitutional Appears: Non-toxic, No Acute Distress - Head Exam Head Exam: ATRAUMATIC, NORMAL INSPECTION, NORMOCEPHALIC - ENT Exam ENT Exam: Mucous Membranes Moist, Normal Exam - Respiratory Exam Respiratory Exam: Clear to Ausculation Bilateral, NORMAL BREATHING PATTERN. absent: Rales, Rhonchi, Wheezes - Cardiovascular Exam Cardiovascular Exam: RRR, +S1, +S2, +S4 - GI/Abdominal Exam GI & Abdominal Exam: Soft, Normal Bowel Sounds. absent: Tenderness - Extremities Exam Extremities Exam: Pedal Edema (+1 b/l) - Neurological Exam Neurological Exam: Alert, Awake, Oriented x3 - Psychiatric Exam Psychiatric exam: Normal Affect, Normal Mood - Skin Skin Exam: Intact, Normal Color, Warm Assessment and Plan - Assessment and Plan (Free Text) Plan: 1. Acute CHF exacerbation secondary to systolic dysfunction 2. Atrial flutter 3. Obesity 4. Lower extremity edema Patient is currently being followed by cardiology. Patient is planned for cardioversion on thursday, and cardiac catheterization on thursday. Patient currently with no complaints. We will continue patient on Lasix as he still has lower extremity edema. We will continue current medical regimen at this time and monitor closely. Lety, PGY-3 <Steffen Sr S - Last Filed: 01/23/18 20:09> Objective - Vital Signs/Intake and Output Vital Signs (last 24 hours): Temp Pulse Resp BP Pulse Ox 98 F 52 L 16 112/67 98 01/23/18 18:00 01/23/18 18:00 01/23/18 18:00 01/23/18 18:00 01/23/18 18:00 Intake and Output: 01/23/18 01/24/18 18:59 06:59 Intake Total 480 180 Output Total 1170 Balance -690 180 - Medications Medications: Current Medications Amiodarone HCl (Cordarone) 400 mg PO BID [facility] Last Admin: 01/23/18 17:25 Dose: 400 mg Aspirin (Ecotrin) 81 mg PO DAILY [facility] Last Admin: 01/23/18 09:10 Dose: 81 mg Carvedilol (Coreg) 25 mg PO BID [facility] Last Admin: 01/23/18 17:26 Dose: 25 mg Digoxin (Digoxin) 0.125 mg PO 1400 [facility] Last Admin: 01/23/18 13:07 Dose: 0.125 mg Enoxaparin Sodium (Lovenox) 140 mg SC Q12 [facility] Last Admin: 01/23/18 09:11 Dose: 140 mg Famotidine (Pepcid) 40 mg PO HS [facility] Last Admin: 01/22/18 23:18 Dose: 40 mg Furosemide (Lasix) 40 mg IV BID [facility] Last Admin: 01/23/18 17:25 Dose: 40 mg Levalbuterol HCl (Xopenex) 0.63 mg IH [id number] PRN PRN Reason: Shortness of Breath Lisinopril (Zestril) 5 mg PO DAILY [facility] Last Admin: 01/23/18 09:10 Dose: 5 mg Polyethylene Glycol (Miralax) 17 gm PO BID [facility] Last Admin: 01/23/18 17:26 Dose: Not Given Potassium Chloride (K-Dur 20 Meq Er Tab) 20 meq PO BRK [facility] Last Admin: 01/23/18 08:16 Dose: 20 meq - Labs Labs: 01/22/18 05:50 01/23/18 05:15 PT 13.2 SECONDS (9.4-12.5) H 01/18/18 17:15 INR 1.15 01/18/18 17:15 APTT 45.2 Seconds (25.1-36.5) H 01/22/18 15:15 Assessment and Plan - Assessment and Plan (Free Text) Plan: Pt seen and examined. I have reviewed the note of the biomedical equipment support specialist and agree with it. I have discussed the assessment and plan with the resident. I have reviewed the patient's labs and medications. Pt with acute CHF due to systolic dysfunction. Pt with LE edema and is on Lasix. He is on Lasix and improved. Pt will get a cardioversion in 2 days and cath in 3 days.
[2018-01-23] MEDS: Digoxin 125 mcg (0.125 mg) Tab PO SCH (13:07)
--- NOTE | 2018-01-24 07:16 | CP.PCM.PN ---
Subjective - Date & Time of Evaluation Date of Evaluation: 01/24/18 Time of Evaluation: 07:00 - Subjective Subjective: Stable on 2R now. No CP or SOB. He feels better. + ambulation. V/S noted. A. Flut. with mod VR 78 - 118 range PE: Lungs: clear Cor: irreg., S1S2 Abd.: soft Ext.: + edema Neuro.: alert I/O = 900/1170 recorded 01/23 Labs noted: K+= 4.0. Todays labs pending. BC X2 NG at 3 days Echo noted: Mod. LVD, EF ~ 30%, Mild TR Objective - Vital Signs/Intake and Output Vital Signs (last 24 hours): Temp Pulse Resp BP Pulse Ox 97.8 F 97 H 97 H 136/74 99 01/24/18 06:00 01/24/18 06:00 01/24/18 06:00 01/24/18 06:00 01/24/18 06:00 Intake and Output: 01/24/18 01/24/18 06:59 18:59 Intake Total 420 Balance 420 - Medications Medications: Current Medications Amiodarone HCl (Cordarone) 400 mg PO BID [facility] Last Admin: 01/23/18 17:25 Dose: 400 mg Aspirin (Ecotrin) 81 mg PO DAILY [facility] Last Admin: 01/23/18 09:10 Dose: 81 mg Carvedilol (Coreg) 25 mg PO BID [facility] Last Admin: 01/23/18 17:26 Dose: 25 mg Digoxin (Digoxin) 0.125 mg PO 1400 [facility] Last Admin: 01/23/18 13:07 Dose: 0.125 mg Enoxaparin Sodium (Lovenox) 140 mg SC Q12 [facility] Last Admin: 01/23/18 22:06 Dose: 140 mg Famotidine (Pepcid) 40 mg PO HS [facility] Last Admin: 01/23/18 22:06 Dose: 40 mg Levalbuterol HCl (Xopenex) 0.63 mg IH [id number] PRN PRN Reason: Shortness of Breath Lisinopril (Zestril) 5 mg PO DAILY [facility] Last Admin: 01/23/18 09:10 Dose: 5 mg Polyethylene Glycol (Miralax) 17 gm PO BID [facility] Last Admin: 01/23/18 17:26 Dose: Not Given Potassium Chloride (K-Dur 20 Meq Er Tab) 20 meq PO BRK [facility] Last Admin: 01/23/18 08:16 Dose: 20 meq - Labs Labs: 01/22/18 05:50 01/23/18 05:15 PT 13.2 SECONDS (9.4-12.5) H 01/18/18 17:15 INR 1.15 01/18/18 17:15 APTT 45.2 Seconds (25.1-36.5) H 01/22/18 15:15 Assessment and Plan - Assessment and Plan (Free Text) Assessment: Edema/Dyspnea/CHF Pl. effusions A. Flutter with RVR Echo: Mod/Sev LVD, EF ~ 30%, Mild TR Obesity FH of CAD/[place] Plan: AM labs pending. Continue digoxin, Coreg, PO amio. Hold Lovenox sq tonight for PORTER/CV in AM IV lasix t0 40/daily Continue lisinopril 5/day. Titrate. PO KCL Monitor labs daily OOB as samm. Plan elective D/C PORTER/CV tomorrow AM. Plan elective cardiac cath for Thursday.
[2018-01-24 07:39] LABS: BLOOD UREA NITROGEN 22 mg/dL (7-21); GFR NON-AFRICAN AMERICAN > 60
[2018-01-24] MEDS: Potassium Chloride 20 mEq ER Tab PO SCH (08:44)
[2018-01-24] MEDS: Enoxaparin 150 mg Syringe SC SCH ×2 (09:45→21:31)
[2018-01-24] MEDS: POLYETHYLENE GLYCOL 3350 17 GM/Dose PACKET PO SCH ×3 (09:45→18:05)
--- NOTE | 2018-01-24 11:52 | PN ---
DATE: 01/24/2018 SUBJECTIVE: The patient has no complaints of any chest pain. No shortness of breath. He says he feels well. He feels okay. He has no shortness of breath. PHYSICAL EXAMINATION: VITAL SIGNS: Temperature is 97.8, pulse of 67, blood pressure is 109/64, respiration is 12. GENERAL: The patient is lying in bed, flat, comfortable. HEENT: No oral lesion. Anicteric sclerae. Moist mucosa. NECK: No JVD, adenopathy, or thyromegaly. CARDIOVASCULAR: S1 and S2, regular. No murmurs, rubs, or gallops. LUNGS: Clear to auscultation bilaterally. No wheeze, rales, or rhonchi. ABDOMEN: Bowel sounds are positive, soft, nontender and nondistended. EXTREMITIES: No cyanosis, clubbing. Lower extremity, 1+ edema. ASSESSMENT: 1. Acute congestive heart failure secondary to systolic dysfunction. 2. Lower extremity edema. 3. Atrial flutter, improved. 4. Obesity with a body mass index of 42. PLAN: The patient is on amiodarone. He has been followed by Cardiology. The patient is on digoxin for the A flutter. He is also on carvedilol. The patient is on potassium, Lasix that he is receiving. His chemistry shows . He is going for cardioversion tomorrow and he is going to have a cardiac cath in 2 days. He otherwise feels well. He is currently on telemetry and he is no longer in the ICU. Steffen Sr MD
[2018-01-24] MEDS: Digoxin 125 mcg (0.125 mg) Tab PO SCH (13:22)
--- NOTE | 2018-01-25 07:18 | CP.PCM.PN ---
Subjective - Date & Time of Evaluation Date of Evaluation: 01/25/18 Time of Evaluation: 07:00 - Subjective Subjective: Stable on 2R. No CP or SOB. He feels better. + ambulation yesterday. V/S noted. A. Flut. with mod VR PE: Lungs: clear Cor: irreg., S1S2 Abd.: soft Ext.: + edema Neuro.: alert 01/24 Labs noted: K+= 4.0. BC X2 NG at 5 days Echo noted: Mod. LVD, EF ~ 30%, Mild TR Objective - Vital Signs/Intake and Output Vital Signs (last 24 hours): Temp Pulse Resp BP Pulse Ox 97.7 F 100 H 20 117/70 96 01/25/18 06:00 01/25/18 06:00 01/25/18 06:00 01/25/18 06:00 01/25/18 06:00 - Medications Medications: Current Medications Amiodarone HCl (Cordarone) 400 mg PO BID [facility] Last Admin: 01/24/18 18:03 Dose: 400 mg Aspirin (Ecotrin) 81 mg PO DAILY [facility] Last Admin: 01/24/18 09:45 Dose: 81 mg Carvedilol (Coreg) 25 mg PO BID [facility] Last Admin: 01/24/18 18:03 Dose: 25 mg Digoxin (Digoxin) 0.125 mg PO 1400 [facility] Last Admin: 01/24/18 13:22 Dose: 0.125 mg Enoxaparin Sodium (Lovenox) 140 mg SC Q12 [facility] Last Admin: 01/24/18 21:31 Dose: 140 mg Famotidine (Pepcid) 40 mg PO HS [facility] Last Admin: 01/24/18 21:30 Dose: 40 mg Furosemide (Lasix) 40 mg IV DAILY [facility] Last Admin: 01/24/18 09:46 Dose: 40 mg Levalbuterol HCl (Xopenex) 0.63 mg IH [id number] PRN PRN Reason: Shortness of Breath Lisinopril (Zestril) 5 mg PO DAILY [facility] Last Admin: 01/24/18 09:43 Dose: 5 mg Polyethylene Glycol (Miralax) 17 gm PO BID [facility] Last Admin: 01/24/18 18:05 Dose: Not Given Potassium Chloride (K-Dur 20 Meq Er Tab) 20 meq PO BRK [facility] Last Admin: 01/24/18 08:44 Dose: 20 meq - Labs Labs: 01/22/18 05:50 01/24/18 06:30 PT 13.2 SECONDS (9.4-12.5) H 01/18/18 17:15 INR 1.15 01/18/18 17:15 APTT 45.2 Seconds (25.1-36.5) H 01/22/18 15:15 Assessment and Plan - Assessment and Plan (Free Text) Assessment: Edema/Dyspnea/CHF Pl. effusions A. Flutter with RVR Echo: Mod/Sev LVD, EF ~ 30%, Mild TR Obesity FH of CAD/[place] Plan: PORTER/CV this AM Continue digoxin, Coreg, PO amio. Lasix IV 40/daily Continue lisinopril 5/day. Titrate. PO KCL OOB as samm. Plan elective cardiac cath for Thursday.
[2018-01-25] MEDS ORDERED: Benzocaine/Butamben/Tetracai 14-2-2% TOP Spray TOP ONE (08:03)
[2018-01-25] MEDS ORDERED: Naloxone 0.4 mg/ml Inj (Adult) ONE (08:18)
[2018-01-25] MEDS ORDERED: Midazolam 2 MG/2 ML VIAL ONE (08:18)
[2018-01-25] MEDS ORDERED: Flumazenil 0.1 mg/ml Inj (5ml) IVP ONE (08:18)
[2018-01-25] MEDS ORDERED: Midazolam 2 MG/2 ML VIAL IV ONE ×2 (08:18→08:24)
[2018-01-25] MEDS: POLYETHYLENE GLYCOL 3350 17 GM/Dose PACKET PO SCH ×3 (10:20→17:24)
[2018-01-25] MEDS: Potassium Chloride 20 mEq ER Tab PO SCH (10:20)
--- NOTE | 2018-01-25 10:37 | CP.PCM.PN ---
<Gurinder Davidson - Last Filed: 01/25/18 10:29> Subjective - Date & Time of Evaluation Date of Evaluation: 01/25/18 Time of Evaluation: 10:29 - Subjective Subjective: Patient seen and examined at bedside. Patient with no chest pain or shortness of breath. No acute events overnight. Denies nausea, vomiting, diarrhea, fever, chills. Objective - Vital Signs/Intake and Output Vital Signs (last 24 hours): Temp Pulse Resp BP Pulse Ox 98 F 85 12 114/79 97 01/25/18 09:29 01/25/18 10:20 01/25/18 09:29 01/25/18 10:20 01/25/18 09:29 - Medications Medications: Current Medications Amiodarone HCl (Cordarone) 400 mg PO BID [facility] Last Admin: 01/25/18 10:19 Dose: 400 mg Aspirin (Ecotrin) 81 mg PO DAILY [facility] Last Admin: 01/25/18 10:20 Dose: 81 mg Carvedilol (Coreg) 25 mg PO BID [facility] Last Admin: 01/25/18 10:20 Dose: 25 mg Digoxin (Digoxin) 0.125 mg PO 1400 [facility] Last Admin: 01/24/18 13:22 Dose: 0.125 mg Enoxaparin Sodium (Lovenox) 120 mg SC ONCE ONE PRN Reason: Protocol Stop: 01/25/18 12:01 Famotidine (Pepcid) 40 mg PO HS [facility] Last Admin: 01/24/18 21:30 Dose: 40 mg Furosemide (Lasix) 40 mg IV DAILY [facility] Last Admin: 01/25/18 10:19 Dose: 40 mg Levalbuterol HCl (Xopenex) 0.63 mg IH [id number] PRN PRN Reason: Shortness of Breath Lisinopril (Zestril) 5 mg PO DAILY [facility] Last Admin: 01/25/18 10:20 Dose: 5 mg Polyethylene Glycol (Miralax) 17 gm PO BID [facility] Last Admin: 01/24/18 18:05 Dose: Not Given Potassium Chloride (K-Dur 20 Meq Er Tab) 20 meq PO BRK [facility] Last Admin: 01/25/18 10:20 Dose: 20 meq - Labs Labs: 01/22/18 05:50 01/24/18 06:30 PT 13.2 SECONDS (9.4-12.5) H 01/18/18 17:15 INR 1.15 01/18/18 17:15 APTT 45.2 Seconds (25.1-36.5) H 01/22/18 15:15 - Constitutional Appears: Non-toxic, No Acute Distress - Head Exam Head Exam: ATRAUMATIC, NORMAL INSPECTION, NORMOCEPHALIC - Respiratory Exam Respiratory Exam: Clear to Ausculation Bilateral, NORMAL BREATHING PATTERN - Cardiovascular Exam Cardiovascular Exam: Tachycardia, +S1, +S2 - GI/Abdominal Exam GI & Abdominal Exam: Soft, Normal Bowel Sounds. absent: Tenderness - Extremities Exam Extremities Exam: Pedal Edema. absent: Calf Tenderness - Neurological Exam Neurological Exam: Alert, Awake, CN II-XII Intact, Oriented x3 - Psychiatric Exam Psychiatric exam: Normal Affect, Normal Mood - Skin Skin Exam: Intact, Normal Color, Warm Assessment and Plan - Assessment and Plan (Free Text) Plan: 1. Acute CHF exacerbation secondary to systolic dysfunction 2. Atrial flutter 3. Obesity 4. Lower extremity edema Patient is currently being followed by cardiology. Patient with PORTER and cardioversion planned for this morning. Patient scheduled for cardiac catheterization tomorrow. Patient will be continued on diuresis for CHF. Patient will continue to be monitored closely and continue current medical regimen. Lety, PGY-3 <Steffen Sr S - Last Filed: 01/25/18 20:14> Objective - Vital Signs/Intake and Output Vital Signs (last 24 hours): Temp Pulse Resp BP Pulse Ox 97.6 F 72 20 106/69 96 01/25/18 18:00 01/25/18 18:00 01/25/18 18:00 01/25/18 18:00 01/25/18 18:00 Intake and Output: 01/25/18 01/26/18 18:59 06:59 Intake Total 1080 Output Total 4 Balance 1076 - Medications Medications: Current Medications Amiodarone HCl (Cordarone) 400 mg PO BID [facility] Last Admin: 01/25/18 17:33 Dose: 400 mg Aspirin (Ecotrin) 81 mg PO DAILY [facility] Last Admin: 01/25/18 10:20 Dose: 81 mg Carvedilol (Coreg) 25 mg PO BID [facility] Last Admin: 01/25/18 17:34 Dose: 25 mg Digoxin (Digoxin) 0.125 mg PO 1400 [facility] Last Admin: 01/25/18 13:25 Dose: 0.125 mg Famotidine (Pepcid) 40 mg PO HS [facility] Last Admin: 01/24/18 21:30 Dose: 40 mg Furosemide (Lasix) 40 mg IV DAILY [facility] Last Admin: 01/25/18 10:19 Dose: 40 mg Levalbuterol HCl (Xopenex) 0.63 mg IH [id number] PRN PRN Reason: Shortness of Breath Lisinopril (Zestril) 5 mg PO DAILY [facility] Last Admin: 01/25/18 10:20 Dose: 5 mg Polyethylene Glycol (Miralax) 17 gm PO BID [facility] Last Admin: 01/25/18 17:24 Dose: Not Given Potassium Chloride (K-Dur 20 Meq Er Tab) 20 meq PO BRK [facility] Last Admin: 01/25/18 10:20 Dose: 20 meq - Labs Labs: 01/22/18 05:50 01/24/18 06:30 PT 13.2 SECONDS (9.4-12.5) H 01/18/18 17:15 INR 1.15 01/18/18 17:15 APTT 45.2 Seconds (25.1-36.5) H 01/22/18 15:15 Assessment and Plan - Assessment and Plan (Free Text) Plan: Pt seen and examined. I have reviewed the note of the healthcare or medical and agree with it. I have discussed the assessment and plan with the resident. I have reviewed the patient's labs and medications. PT with acute CHF. He went for cardioversion and PORTER. He has improved with LE edema. Will get cath in am.
--- NOTE | 2018-01-25 10:55 | CARD ---
APPROVED REPORT Date of service: 01/25/2018 EXAM: Transesophageal echocardiogram with color flow Doppler and Synchronized Cardioversion. INDICATION AFIB/FLUTTER Reason For Test : Rule out Intracardiac Thrombus. PROCEDURE After obtaining informed consent, patient underwent transesophageal echo in the Echo Lab. Type of Sedation : Conscious Sedation Sedation was achieved with Versed, Fentanyl intravenously. Transesophageal probe was inserted and advanced into esophagus without difficulty. Echo enhancement agent administered: Agitated Saline The PORTER was performed without complications. Synchronized Cardioversion acheived with 200 Joules after 1 attempt(s). Rhythm following Synchronized Cardioversion: Normal Sinus Rhythm Throughout the procedure, the blood pressure, pulse oximetry, cardiac rhythm, and rate were monitored. The patient tolerated the procedure without adverse effects. Recovery from conscious sedation was uneventful and vital signs were stable. LEFT VENTRICLE The left ventricle is normal size. There is mild concentric left ventricular hypertrophy. Left ventricle systolic function is moderately impaired. There is global hypokinesis of the left ventricle. RIGHT VENTRICLE The right ventricle is normal size. ATRIA The left atrium is mildly dilated. No thrombus is seen in the left atrium or left atrial appendage. The right atrium size is normal. The interatrial septum is intact with no evidence for an atrial septal defect. AORTIC VALVE The aortic valve is normal in structure. No aortic regurgitation is present. There is no aortic valvular stenosis. MITRAL VALVE The mitral valve is normal in structure. Mitral regurgitation is trace to mild. TRICUSPID VALVE The tricuspid valve is normal in structure. There is no tricuspid valve regurgitation noted. PULMONIC VALVE The pulmonary valve is normal in structure. GREAT VESSELS The aortic root is normal in size. The ascending aorta is normal in size. There ismild atherosclerotic plaque in the descending aorta. The IVC is normal in size and collapses >50% with inspiration. <Conclusion> Dilated LA. Moderate global LV hypokinesis. Trace to mild MR. No thrombus or spontaneous echo contrast seen in LA or LA appendage. Successful cardioversion performed with 200 Joules and religious of sinus rhythm.
[2018-01-25] MEDS ORDERED: Enoxaparin 120 mg Syringe SC ONE (12:00)
[2018-01-25] MEDS: Digoxin 125 mcg (0.125 mg) Tab PO SCH (13:25)
[2018-01-25 13:29] VITALS: PULSE 84
[2018-01-26] MEDS ORDERED: Lidocaine PF 2% (5 ml) Inj (For Cardiac Arrhy) ONE (07:09)
[2018-01-26] MEDS ORDERED: Phenylephrine 10 mg/ml Inj ONE (07:09)
[2018-01-26] MEDS ORDERED: Iohexol 350mgl/ml 50 ML ONE (07:10)
[2018-01-26] MEDS ORDERED: Iohexol 350 MG/100 ML VIAL ONE (07:10)
[2018-01-26] MEDS ORDERED: Nitroglycerin 50mg in D5W 0 MG/0 ML BOTTLE IV ONE (07:10)
[2018-01-26] MEDS ORDERED: Midazolam 2 MG/2 ML VIAL ONE ×2 (07:45→07:51)
[2018-01-26] MEDS ORDERED: Sodium Chloride 0.9% 1,000 ML IV SCH (08:45)
--- NOTE | 2018-01-26 09:50 | CARDCATH ---
PROCEDURE DATE: 01/26/2018 CARDIAC CATHETERIZATION REPORT PROCEDURE: 1. Selective left and right coronary angiography. 2. Right and left heart catheterization. 3. PCI of RCA with drug-eluting stents. 4. Right femoral arteriography. 5. Angio-Seal deployment. 6. Mynx closure of right femoral vein. HISTORY: This is a 67-year-old man, recently admitted with decompensated congestive heart failure and left ventricular dysfunction. A cardiac catheterization was advised to find his coronary anatomy. INDICATION: Congestive heart failure, left ventricular dysfunction. FINDINGS: HEMODYNAMICS: The right heart pressures were as follows; the RA mean pressure was 13. The RV pressure was 46/10. The PA pressure was 48/20 with a mean pressure of 33. The pulmonary capillary wedge pressure was 18 with a V wave to 30. The cardiac output by thermodilution method was 7.1 L/minute with a cardiac index of 2.8 L/min/m2. CORONARY ANATOMY: 1. The left mainstem was normal. 2. The left anterior descending artery had mild irregularities in its proximal segment and a 30% lesion in its mid portion. The diagonal branches had minimal disease. 3. The left circumflex artery was fairly small giving rise to one fairly small obtuse marginal branch. The left circumflex system had mild diffuse disease. 4. The right coronary artery is large and dominant. This had a complex 90% lesion in its proximal segment followed by a 70% stenosis. The vessel was somewhat ectatic. The distal vessel is large and supplied multiple posterolateral branches. The posterolateral branches as well as PDA were free of disease. LEFT VENTRICULOGRAPHY: A hand injection was performed in the left ventricle revealing mild diffuse LV hypokinesis with an overall ejection fraction of 40%. There was no aortic valve gradient noted on catheter pullback. Mitral regurgitation was not assessed. CORONARY INTERVENTION: A total of 8000 units of intravenous heparin was administered to achieve an ACT greater than 220 seconds during the procedure. The lesions in the RCA were successfully crossed with the use of a [place] wire. The proximal lesion was initially treated with predilatation utilizing a 3 x 15 mm balloon. Following this, a 4 x 22 mm Resolute [place] drug eluting stent was deployed proximally to 16 atmospheres for 45 seconds. Following this, the mid lesion appeared worsened and this was then treated with the use of a 4 x 18 mm Resolute [place] drug eluting stent. A small amount of stent overlap was utilized. This was inflated to 14 atmospheres for 45 seconds. The stent balloon was then withdrawn into the overlapped segment. This was inflated to 16 atmospheres for 30 seconds. There was 0% residual stenosis following the intervention. MANSOOR grade 3 flow was present before and after the procedure. RIGHT FEMORAL ARTERIOGRAPHY: The right femoral arteriogram was performed in the XIONG projection. This showed no evidence of significant disease and appropriate level of arterial puncture. The puncture site was then closed with deployment of an Angio-Seal device. The right femoral vein sheath was removed and a Mynx device utilized for vessel closure. CONCLUSION: 1. Mild left anterior descending and circumflex system disease. 2. Severe proximal mid right coronary artery disease. 3. Moderate left ventricular systolic dysfunction. 4. Successful percutaneous coronary intervention of proximal mid right coronary artery with drug eluting stents as described above. RECOMMENDATIONS: Aspirin and Plavix therapy will be continued for at least 1 year. He will be placed on Eliquis as well for his paroxysmal atrial fibrillation. Aggressive risk factor control was advised. Sodium and fluid restriction will be advised as well. Reassessment of his left ventricular function in 3 months will be planned. Jere Hollins MD
[2018-01-26] MEDS: POLYETHYLENE GLYCOL 3350 17 GM/Dose PACKET PO SCH ×3 (10:00→18:30)
[2018-01-26] MEDS: Potassium Chloride 20 mEq ER Tab PO SCH (10:01)
--- NOTE | 2018-01-26 13:48 | CARD ---
APPROVED REPORT Date of service: 01/26/2018 EKG Measurement Heart [id number] <Conclusion> Sinus rhythm with 1st degree AV block with premature atrial complexes Nonspecific T wave abnormality Prolonged QT Abnormal ECG
--- NOTE | 2018-01-26 14:06 | CARD ---
APPROVED REPORT Date of service: 01/25/2018 EKG Measurement Heart [id number] <Conclusion> Sinus rhythm with premature atrial complexes Nonspecific T wave abnormality Abnormal ECG
--- NOTE | 2018-01-26 22:52 | PN ---
DATE: 01/26/2018 The patient was not seen today. 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 I did speak to Dr. Hollins and the patient did have . The patient is in normal sinus for at least one month. We will reevaluate the patient tomorrow. Steffen Sr MD
[2018-01-27 01:51] VITALS: RESP 20
[2018-01-27 06:40] VITALS: TEMP 98.1; O2SAT 96
[2018-01-27 07:26] LABS: BASO # 0.01 K/mm3 (0.0-2.0); BASO % 0.1 % (0.0-3.0); EOS # 0.1 (0.0-0.7); EOS % 1.3 % (1.5-5.0); GRAN # 6.45 (1.4-6.5); GRAN % 70.2 % (50.0-68.0); HEMOGLOBIN 14.9 g/dL (14.0-18.0); LYMPH # 1.7 (1.2-3.4); LYMPH % 18.3 % (22.0-35.0); MEAN CELL VOLUME 92.1 fl (80.0-105.0); MEAN CORPUSCULAR HEMOGLOBIN 29.5 pg (25.0-35.0); MEAN PLATELET VOLUME 10.5 fl (7.0-11.0); MONO # 0.9 (0.1-0.6); MONO % 10.1 % (1.0-6.0); RBC 5.05 10^6/uL (3.5-6.1); RED CELL DISTRIBUTION WIDTH 14.2 % (11.5-14.5); WHITE BLOOD COUNT 9.2 10^3/ul (4.5-11.0)
[2018-01-27 07:48] LABS: BLOOD UREA NITROGEN 19 mg/dL (7-21); CALCIUM 9.2 mg/dL (8.4-10.5); GFR NON-AFRICAN AMERICAN > 60
[2018-01-27] MEDS: Potassium Chloride 20 mEq ER Tab PO SCH (09:32)
[2018-01-27] MEDS: POLYETHYLENE GLYCOL 3350 17 GM/Dose PACKET PO SCH (09:33)
[2018-01-27 09:39] VITALS: BP 105/52
--- NOTE | 2018-01-27 11:14 | CP.PCM.DIS ---
<Gurinder Davidson - Last Filed: 01/27/18 11:10> Provider - Provider Date of Admission: 01/18/18 20:52 Attending physician: Steffen Sr MD Primary care physician: Timo Miles MD Consults: Cardio - Dr. Goncalves Time Spent in preparation of Discharge (in minutes): 45 Diagnosis - Discharge Diagnosis (1) Atrial flutter Status: Resolved (2) Heart failure Status: Chronic (3) Morbid obesity Status: Chronic Hospital Course - Lab Results Lab Results: Micro Results 01/19/18 00:45 Blood Blood Culture - Final NO GROWTH AFTER 5 DAYS 01/19/18 00:45 Blood Gram Stain - Final TEST NOT PERFORMED 01/19/18 00:35 Blood Blood Culture - Final NO GROWTH AFTER 5 DAYS 01/19/18 00:35 Blood Gram Stain - Final TEST NOT PERFORMED 01/18/18 23:05 Nose MRSA Culture (Admit) - Final MRSA NOT DETECTED Most Recent Lab Values WBC 9.2 10^3/ul (4.5-11.0) 01/27/18 06:45 RBC 5.05 10^6/uL (3.5-6.1) 01/27/18 06:45 Hgb 14.9 g/dL (14.0-18.0) 01/27/18 06:45 Hct 46.5 % (42.0-52.0) 01/27/18 06:45 MCV 92.1 fl (80.0-105.0) 01/27/18 06:45 MCH 29.5 pg (25.0-35.0) 01/27/18 06:45 MCHC 32.0 g/dl (31.0-37.0) 01/27/18 06:45 RDW 14.2 % (11.5-14.5) 01/27/18 06:45 Plt Count 213 10^3/uL (120.0-450.0) 01/27/18 06:45 MPV 10.5 fl (7.0-11.0) 01/27/18 06:45 Gran % 70.2 % (50.0-68.0) H 01/27/18 06:45 Lymph % (Auto) 18.3 % (22.0-35.0) L 01/27/18 06:45 [place] % (Auto) 10.1 % (1.0-6.0) H 01/27/18 06:45 Eos % (Auto) 1.3 % (1.5-5.0) L 01/27/18 06:45 Baso % (Auto) 0.1 % (0.0-3.0) 01/27/18 06:45 Gran # 6.45 (1.4-6.5) 01/27/18 06:45 Lymph # (Auto) 1.7 (1.2-3.4) 01/27/18 06:45 [place] # (Auto) 0.9 (0.1-0.6) H 01/27/18 06:45 Eos # (Auto) 0.1 (0.0-0.7) 01/27/18 06:45 Baso # (Auto) 0.01 K/mm3 (0.0-2.0) 01/27/18 06:45 PT 13.2 SECONDS (9.4-12.5) H 01/18/18 17:15 INR 1.15 01/18/18 17:15 APTT 45.2 Seconds (25.1-36.5) H 01/22/18 15:15 Sodium 137 mmol/L (132-148) 01/27/18 06:45 Potassium 4.4 mmol/L (3.6-5.0) 01/27/18 06:45 Chloride 100 mmol/L (98-107) 01/27/18 06:45 Carbon Dioxide 30 mmol/L (21-33) 01/27/18 06:45 Anion Gap 12 (10-20) 01/27/18 06:45 BUN 19 mg/dL (7-21) 01/27/18 06:45 Creatinine 1.0 mg/dl (0.8-1.5) 01/27/18 06:45 Est GFR ( Amer) > 60 01/27/18 06:45 Est GFR (Non-Af Amer) > 60 01/27/18 06:45 Random Glucose 101 mg/dL (70-110) 01/27/18 06:45 Hemoglobin A1c 6.3 % (4.2-6.5) 01/18/18 18:40 Calcium 9.2 mg/dL (8.4-10.5) 01/27/18 06:45 Phosphorus 3.9 mg/dL (2.5-4.5) 01/21/18 06:00 Magnesium 1.7 mg/dL (1.7-2.2) 01/24/18 06:30 Total Bilirubin 0.8 mg/dL (0.2-1.3) 01/21/18 06:00 AST 30 U/L (17-59) 01/21/18 06:00 ALT 47 U/L (7-56) 01/21/18 06:00 Alkaline Phosphatase 129 U/L (38-126) H 01/21/18 06:00 Lactate Dehydrogenase 453 U/L (333-699) 01/18/18 18:40 Total Creatine Kinase 105 U/L (35-230) 01/18/18 18:40 Troponin I 0.15 ng/mL H* D 01/19/18 06:10 NT-Pro-B Natriuret Pep 5690 pg/mL (0-450) H 01/18/18 18:40 Total Protein 6.7 g/dL (5.8-8.3) 01/21/18 06:00 Albumin 3.8 g/dL (3.0-4.8) 01/21/18 06:00 Globulin 2.9 gm/dL 01/21/18 06:00 Albumin/Globulin Ratio 1.3 (1.1-1.8) 01/21/18 06:00 Triglycerides 84 mg/dL (35-160) 01/18/18 18:40 Cholesterol 172 mg/dL (130-200) 01/18/18 18:40 LDL Cholesterol Direct 128 mg/dL (0-129) 01/18/18 18:40 HDL Cholesterol 30 mg/dL (29-60) 01/18/18 18:40 Procalcitonin 0.07 NG/ML (0.19-0.49) L 01/18/18 22:25 Free T4 1.07 ng/dL (0.78-2.19) 01/18/18 17:15 TSH 3rd Generation 3.36 mIU/mL (0.46-4.68) 01/18/18 17:15 Urine Color Colorless (YELLOW) 01/18/18 22:16 Urine Appearance Clear (CLEAR) 01/18/18 22:16 Urine pH 6.0 (4.7-8.0) 01/18/18 22:16 Ur Specific Victor <= 1.005 (1.005-1.035) 01/18/18 22:16 Urine Protein Negative mg/dL (<30 mg/dL) 01/18/18 22:16 Urine Glucose (UA) Negative mg/dL (NEGATIVE) 01/18/18 22:16 Urine Ketones Negative mg/dL (NEGATIVE) 01/18/18 22:16 Urine Blood Negative (NEGATIVE) 01/18/18 22:16 Urine Nitrate Negative (NEGATIVE) 01/18/18 22:16 Urine Bilirubin Negative (NEGATIVE) 01/18/18 22:16 Urine Urobilinogen 0.2 E.U./dL (<1 E.U./dL) 01/18/18 22:16 Ur Leukocyte Esterase Negative Nayla/uL (NEGATIVE) 01/18/18 22:16 Digoxin 0.7 ng/mL (0.8-2.0) L 01/21/18 06:00 Urine Opiates Screen Negative (NEGATIVE) 01/18/18 22:16 Urine Methadone Screen Negative (NEGATIVE) 01/18/18 22:16 Ur Barbiturates Screen Negative (NEGATIVE) 01/18/18 22:16 Ur Phencyclidine Scrn Negative (NEGATIVE) 01/18/18 22:16 Ur Amphetamines Screen Negative (NEGATIVE) 01/18/18 22:16 U Benzodiazepines Scrn Negative (NEGATIVE) 01/18/18 22:16 U Oth Cocaine Metabols Negative (NEGATIVE) 01/18/18 22:16 U Cannabinoids Screen Positive (NEGATIVE) H 01/18/18 22:16 Blood Type O POSITIVE 01/19/18 00:45 Blood Type Confirm O POSITIVE 01/19/18 06:10 Antibody Screen Negative 01/19/18 00:45 BBK History Checked No verified bt 01/19/18 00:45 - Hospital Course Hospital Course: 67 year old male with past medical history significant for 30 years of smoking presented to the hospital for shortness of breath. Patient was found to be in atrial flutter with rapid rate. Patient was also found to have to elevated troponin and was initially placed on cardizem drip and heparin drip. Patient was found to be in new onset heart failure. Patient was placed on antiarrhythmic medications which did not correct atrial flutter. Patient underwent cardioversion for atrial flutter which was successful and will continue Eliquis for 1 month. Patient also had PCI of RCA and will continue Aspirin and Plavix for 1 year. Patient will also continue Lasix, Lisinopril, Carvedilol, and Amiodarone at this time. Patient will follow up with PMD and wheel truer. Discharge Exam - Head Exam Head Exam: ATRAUMATIC, NORMAL INSPECTION, NORMOCEPHALIC - Respiratory Exam Respiratory Exam: Clear to PA & Lateral, NORMAL BREATHING PATTERN, UNREMARKABLE - Cardiovascular Exam Cardiovascular Exam: RRR, +S1, +S2 - GI/Abdominal Exam GI & Abdominal Exam: Normal Bowel Sounds, Unremarkable. absent: Tenderness - Extremities Exam Additional comments: Trace b/l LE edema - Neurological Exam Neurological exam: Alert, CN II-XII Intact, Oriented x3 - Psychiatric Exam Psychiatric exam: Normal Affect, Normal Mood - Skin Skin Exam: Intact, Normal Color, Warm Discharge Plan - Discharge Medications Prescriptions: Amiodarone [Cordarone] 200 mg PO BID #60 tab Apixaban [Eliquis] 5 mg PO BID #60 tab Aspirin [Ecotrin] 81 mg PO DAILY #30 tabec Atorvastatin [Lipitor] 40 mg PO DIN #30 tab Carvedilol [Coreg] 25 mg PO BID #60 tab Clopidogrel [Plavix] 75 mg PO DAILY #30 tab Furosemide [Lasix] 40 mg PO DAILY #30 tablet Lisinopril [Zestril] 5 mg PO DAILY #30 tab Potassium Chloride [K-Dur 20 mEq ER Tab] 20 meq PO BRK #30 tab - Follow Up Plan Condition: GUARDED Disposition: HOME/ ROUTINE Instructions: Heart Failure, Adult, Cardiac Catheterization (DC), Heart Attack (DC), Coronary Stenting (DC), Carotid Artery Stenting (DC), Transesophageal Echocardiogram, Atrial Flutter (DC) Additional Instructions: Follow up with PMD in 1 week Follow up with wheel truer Continue medication as prescribed. See post cardiac cath instructions. Return to nearest er if symptoms worsen. Referrals: Timo Miles MD [Primary Care Provider] - <Steffen Sr - Last Filed: 01/28/18 19:07> Provider - Provider Date of Admission: 01/18/18 20:52 Attending physician: Steffen Sr MD Primary care physician: Timo Miles MD Hospital Course - Lab Results Lab Results: Micro Results 01/19/18 00:45 Blood Blood Culture - Final NO GROWTH AFTER 5 DAYS 01/19/18 00:45 Blood Gram Stain - Final TEST NOT PERFORMED 01/19/18 00:35 Blood Blood Culture - Final NO GROWTH AFTER 5 DAYS 01/19/18 00:35 Blood Gram Stain - Final TEST NOT PERFORMED 01/18/18 23:05 Nose MRSA Culture (Admit) - Final MRSA NOT DETECTED Most Recent Lab Values WBC 9.2 10^3/ul (4.5-11.0) 01/27/18 06:45 RBC 5.05 10^6/uL (3.5-6.1) 01/27/18 06:45 Hgb 14.9 g/dL (14.0-18.0) 01/27/18 06:45 Hct 46.5 % (42.0-52.0) 01/27/18 06:45 MCV 92.1 fl (80.0-105.0) 01/27/18 06:45 MCH 29.5 pg (25.0-35.0) 01/27/18 06:45 MCHC 32.0 g/dl (31.0-37.0) 01/27/18 06:45 RDW 14.2 % (11.5-14.5) 01/27/18 06:45 Plt Count 213 10^3/uL (120.0-450.0) 01/27/18 06:45 MPV 10.5 fl (7.0-11.0) 01/27/18 06:45 Gran % 70.2 % (50.0-68.0) H 01/27/18 06:45 Lymph % (Auto) 18.3 % (22.0-35.0) L 01/27/18 06:45 [place] % (Auto) 10.1 % (1.0-6.0) H 01/27/18 06:45 Eos % (Auto) 1.3 % (1.5-5.0) L 01/27/18 06:45 Baso % (Auto) 0.1 % (0.0-3.0) 01/27/18 06:45 Gran # 6.45 (1.4-6.5) 01/27/18 06:45 Lymph # (Auto) 1.7 (1.2-3.4) 01/27/18 06:45 [place] # (Auto) 0.9 (0.1-0.6) H 01/27/18 06:45 Eos # (Auto) 0.1 (0.0-0.7) 01/27/18 06:45 Baso # (Auto) 0.01 K/mm3 (0.0-2.0) 01/27/18 06:45 PT 13.2 SECONDS (9.4-12.5) H 01/18/18 17:15 INR 1.15 01/18/18 17:15 APTT 45.2 Seconds (25.1-36.5) H 01/22/18 15:15 Sodium 137 mmol/L (132-148) 01/27/18 06:45 Potassium 4.4 mmol/L (3.6-5.0) 01/27/18 06:45 Chloride 100 mmol/L (98-107) 01/27/18 06:45 Carbon Dioxide 30 mmol/L (21-33) 01/27/18 06:45 Anion Gap 12 (10-20) 01/27/18 06:45 BUN 19 mg/dL (7-21) 01/27/18 06:45 Creatinine 1.0 mg/dl (0.8-1.5) 01/27/18 06:45 Est GFR ( Amer) > 60 01/27/18 06:45 Est GFR (Non-Af Amer) > 60 01/27/18 06:45 Random Glucose 101 mg/dL (70-110) 01/27/18 06:45 Hemoglobin A1c 6.3 % (4.2-6.5) 01/18/18 18:40 Calcium 9.2 mg/dL (8.4-10.5) 01/27/18 06:45 Phosphorus 3.9 mg/dL (2.5-4.5) 01/21/18 06:00 Magnesium 1.7 mg/dL (1.7-2.2) 01/24/18 06:30 Total Bilirubin 0.8 mg/dL (0.2-1.3) 01/21/18 06:00 AST 30 U/L (17-59) 01/21/18 06:00 ALT 47 U/L (7-56) 01/21/18 06:00 Alkaline Phosphatase 129 U/L (38-126) H 01/21/18 06:00 Lactate Dehydrogenase 453 U/L (333-699) 01/18/18 18:40 Total Creatine Kinase 105 U/L (35-230) 01/18/18 18:40 Troponin I 0.15 ng/mL H* D 01/19/18 06:10 NT-Pro-B Natriuret Pep 5690 pg/mL (0-450) H 01/18/18 18:40 Total Protein 6.7 g/dL (5.8-8.3) 01/21/18 06:00 Albumin 3.8 g/dL (3.0-4.8) 01/21/18 06:00 Globulin 2.9 gm/dL 01/21/18 06:00 Albumin/Globulin Ratio 1.3 (1.1-1.8) 01/21/18 06:00 Triglycerides 84 mg/dL (35-160) 01/18/18 18:40 Cholesterol 172 mg/dL (130-200) 01/18/18 18:40 LDL Cholesterol Direct 128 mg/dL (0-129) 01/18/18 18:40 HDL Cholesterol 30 mg/dL (29-60) 01/18/18 18:40 Procalcitonin 0.07 NG/ML (0.19-0.49) L 01/18/18 22:25 Free T4 1.07 ng/dL (0.78-2.19) 01/18/18 17:15 TSH 3rd Generation 3.36 mIU/mL (0.46-4.68) 01/18/18 17:15 Urine Color Colorless (YELLOW) 01/18/18 22:16 Urine Appearance Clear (CLEAR) 01/18/18 22:16 Urine pH 6.0 (4.7-8.0) 01/18/18 22:16 Ur Specific Victor <= 1.005 (1.005-1.035) 01/18/18 22:16 Urine Protein Negative mg/dL (<30 mg/dL) 01/18/18 22:16 Urine Glucose (UA) Negative mg/dL (NEGATIVE) 01/18/18 22:16 Urine Ketones Negative mg/dL (NEGATIVE) 01/18/18 22:16 Urine Blood Negative (NEGATIVE) 01/18/18 22:16 Urine Nitrate Negative (NEGATIVE) 01/18/18 22:16 Urine Bilirubin Negative (NEGATIVE) 01/18/18 22:16 Urine Urobilinogen 0.2 E.U./dL (<1 E.U./dL) 01/18/18 22:16 Ur Leukocyte Esterase Negative Nayla/uL (NEGATIVE) 01/18/18 22:16 Digoxin 0.7 ng/mL (0.8-2.0) L 01/21/18 06:00 Urine Opiates Screen Negative (NEGATIVE) 01/18/18 22:16 Urine Methadone Screen Negative (NEGATIVE) 01/18/18 22:16 Ur Barbiturates Screen Negative (NEGATIVE) 01/18/18 22:16 Ur Phencyclidine Scrn Negative (NEGATIVE) 01/18/18 22:16 Ur Amphetamines Screen Negative (NEGATIVE) 01/18/18 22:16 U Benzodiazepines Scrn Negative (NEGATIVE) 01/18/18 22:16 U Oth Cocaine Metabols Negative (NEGATIVE) 01/18/18 22:16 U Cannabinoids Screen Positive (NEGATIVE) H 01/18/18 22:16 Blood Type O POSITIVE 01/19/18 00:45 Blood Type Confirm O POSITIVE 01/19/18 06:10 Antibody Screen Negative 01/19/18 00:45 BBK History Checked No verified bt 01/19/18 00:45 - Hospital Course Hospital Course: Pt seen and examined. This is a late entry. I have reviewed the note of the medical intern and agree with it. I have discussed the assessment and plan with the resident. I have reviewed the patient's labs and medications. Pt is going to be discharged home to f/u with Dr Miles and Dr Goncalves. H is in SR and on Eliquis. He will be on ASA and Plavix for his CAD with stents. He will be on Lasix for his LE edema. Wt loss and excercise. He is able to sleep better.
[2018-01-27 12:58] VITALS: PULSE 58
--- NOTE | 2018-01-27 13:15 | PN ---
DATE: 01/27/2018 SUBJECTIVE: The patient is seen sitting in bed on telemetry. He is currently comfortable. He remains in sinus rhythm. He denies any chest pain or dyspnea. His current medications remain amiodarone 400 mg b.i.d., carvedilol 25 mg b.i.d., Ecotrin once daily, Eliquis 5 mg b.i.d., Lasix 40 mg daily, potassium 20 mEq daily, Lipitor 40 mg daily, Pepcid 40 mg daily, Plavix 75 mg daily and Zestril 5 mg daily. PHYSICAL EXAMINATION: GENERAL: He is an overweight middle-aged man. VITAL SIGNS: His blood pressure is 106/52 with a pulse of 70 and sinus, respirations are 14. He is afebrile. HEENT: No JVD. CHEST: Clear to auscultation and percussion. HEART: PMI displaced laterally with soft systolic murmur at left sternal border. ABDOMEN: Soft, obese, nontender with normoactive bowel sounds. EXTREMITIES: Bilateral chronic cellulitic changes with trace ankle edema. DIAGNOSTIC DATA: Potassium 4.4, BUN and creatinine 19 and 1. White count 9.2, hemoglobin and hematocrit 14.9 and 46.5 with platelet count of 213,000. IMPRESSION: 1. Recent decompensated congestive heart failure, acute systolic, clinically improved. 2. Moderate left ventricular systolic dysfunction. 3. Atrial flutter, remains in sinus rhythm following cardioversion. 4. Coronary artery disease, status post percutaneous coronary intervention of right coronary artery. 5. Chronic obesity. RECOMMENDATIONS: From cardiac standpoint, he appears stable for discharge home at this time. His current medications will be continued for now. Sodium and fluid restriction were advised. Close outpatient followup will be arranged. If he remains in sinus rhythm, consideration will be given to discontinuation of Eliquis after 6-8 weeks. Aggressive risk factor control is advised. Regular exercise and weight loss were encouraged as well. Outpatient followup has been arranged. Jere Hollins MD
--- NOTE | 2018-01-27 21:17 | CARD ---
APPROVED REPORT Date of service: 01/25/2018 EKG Measurement Heart [id number] [id number] <Conclusion> Sinus rhythm with premature atrial complexes Cannot rule out Inferior infarct, age undetermined Abnormal ECG
== END 2018-01-27 12:22 | disposition home or self-care (01) | DRG 247 ==
LOC: ED 16:57 → ERH 20:52 → CCU 22:57 → 2RSO 01-23 13:47
PROVIDERS: ADMIT Internal Medicine Nephrology; ATTEND Internal Medicine Nephrology
PROC: B24BZZ4 Ultrasonography of Heart with Aorta, Transesophageal (ICD-10-PCS; 2018-01-25)
PROC: 5A2204Z Restoration of Cardiac Rhythm, Single (ICD-10-PCS; 2018-01-25)
PROC: 027035Z Dilation of Coronary Artery, One Artery with Two Drug-eluting Intraluminal Devices, Percutaneous Approach (ICD-10-PCS; principal; 2018-01-26)
PROC: 4A023N8 Measurement of Cardiac Sampling and Pressure, Bilateral, Percutaneous Approach (ICD-10-PCS; 2018-01-26)
PROC: B211YZZ Fluoroscopy of Multiple Coronary Arteries using Other Contrast (ICD-10-PCS; 2018-01-26)
PROC: B215YZZ Fluoroscopy of Left Heart using Other Contrast (ICD-10-PCS; 2018-01-26)
DX: I50.23 Acute on chronic systolic (congestive) heart failure (principal); I48.92 Unspecified atrial flutter; Z68.41 Body mass index [BMI] 40.0-44.9, adult; I25.10 Atherosclerotic heart disease of native coronary artery without angina pectoris; E66.01 Morbid (severe) obesity due to excess calories; I45.89 Other specified conduction disorders; Z87.891 Personal history of nicotine dependence; Z82.49 Family history of ischemic heart disease and other diseases of the circulatory system